=== PATIENT | female | born 1940 | race American Indian/Alaskan Native ===

== ENCOUNTER 2017-11-12 11:21 | Inpatient (IN) | payer MEDICARE ==
[2017-11-12 14:33] LABS: BASO # 0.1 K/uL (0.0-0.2); BASO % 1.2 % (0.0-2.0); EOS # 0.1 K/uL (0.0-0.7); EOS % 1.6 % (0.0-4.0); HEMOGLOBIN 13.2 g/dL (11.0-16.0); LYMPH % 21.8 % (20.0-40.0); MEAN CELL VOLUME 91.6 fL (81.0-99.0); MEAN CORPUSCULAR HEMOGLOBIN 30.8 pg (27.0-31.0); MEAN CORPUSCULAR HGB CONC 33.6 g/dL (33.0-37.0); MEAN PLATELET VOLUME 9.3 fL (7.2-11.7); MONO # 0.9 K/uL (0.0-0.8); MONO % 9.9 % (0.0-10.0); NEUT # 5.9 K/uL (1.8-7.0); NEUT % 65.5 % (50.0-75.0); RBC 4.28 Mil/uL (3.80-5.20)
[2017-11-12 14:49] LABS: PROTHROMBIN TIME 11.3 SECONDS (9.7-12.2)
[2017-11-12 14:53] LABS: ALB/GLOB RATIO 1.2 (1.0-2.1); ALBUMIN 4.5 g/dL (3.5-5.0); CALCIUM 9.2 mg/dl (8.6-10.4)
[2017-11-12 14:58] LABS: TROPONIN I 0.012 ng/mL (0.00-0.120)
--- NOTE | 2017-11-12 15:18 | RAD ---
PROCEDURE: CHEST RADIOGRAPH, 1 VIEW HISTORY: SOB COMPARISON: None available. FINDINGS: LUNGS: Clear. PLEURA: No pneumothorax or pleural fluid seen. CARDIOVASCULAR: No radiographic findings to suggest acute or significant cardiovascular disease. OSSEOUS STRUCTURES: No significant abnormalities. VISUALIZED UPPER ABDOMEN: Normal. OTHER FINDINGS: None. IMPRESSION: No active disease.
[2017-11-12 15:45] LABS: SQUAMOUS EPITHIAL < 1 /hpf (0-5); URINE BILIRUBIN NEGATIVE (NEGATIVE); URINE BLOOD NEGATIVE (NEGATIVE); URINE CLARITY Clear (Clear); URINE COLOR Colorless (YELLOW); URINE GLUCOSE (UA) NORMAL (Normal); URINE LEUKOCYTE ESTERASE NEG Leu/uL (Negative); URINE PROTEIN 1+ mg/dL (NEGATIVE); URINE UROBILINOGEN NORMAL mg/dL (0.2-1.0)
[2017-11-12] MEDS ORDERED: Enoxaparin 40 mg Syringe SC STA (15:57)
--- NOTE | 2017-11-12 15:59 | C.PDOC ---
History Of Present Illness 77 year old female presents to the ED for evaluation of bilateral leg swelling ( left > right) which began 1 day ago. Patient denies fever,chills, shortness of breath. Time Seen by Provider: 11/12/17 13:56 Chief Complaint (Nursing): Lower Extremity Problem/Injury History Per: Patient History/Exam Limitations: no limitations Onset/Duration Of Symptoms: Hrs Current Symptoms Are (Timing): Still Present Additional History Per: Patient Past Medical History Reviewed: Historical Data, Nursing Documentation, Vital Signs Vital Signs: Last Vital Signs Temp 97.9 F 11/12/17 17:28 Pulse 60 11/12/17 17:28 Resp 20 11/12/17 17:28 BP 148/70 11/12/17 17:28 Pulse Ox 100 11/12/17 19:32 - Medical History PMH: HTN, TIA Other PMH: DVT 50+ yrs ago during Surgical History: No Surg Hx Family History: States: No Known Family Hx - Social History Hx Alcohol Use: No Hx Substance Use: No - Immunization History Hx Tetanus Toxoid Vaccination: No Hx Influenza Vaccination: Yes Hx Pneumococcal Vaccination: No Review Of Systems Skin: Positive for: Other (b/l leg swelling ) Physical Exam - Physical Exam Appears: Non-toxic, No Acute Distress, Other (elderly black female ) Skin: Normal Color, Warm, Dry Head: Atraumatic, Normacephalic Eye(s): bilateral: Normal Inspection Oral Mucosa: Moist Neck: Supple Chest: Symmetrical, No Deformity, No Tenderness Cardiovascular: Rhythm Regular, No Murmur Respiratory: Normal Breath Sounds, No Rales, No Rhonchi, No Wheezing Extremity: Normal ROM, Capillary Refill (less than 2 seconds ), Other (mild leg edema bilaterally ) Neurological/Psych: Oriented x3, Normal Speech, Normal Cognition ED Course And Treatment - Laboratory Results Result Diagrams: 11/12/17 14:29 11/12/17 14:29 Lab Interpretation: Abnormal (d-dimer 543 H) ECG: Interpreted By Me ECG Rhythm: Sinus Rhythm ECG Interpretation: Normal Rate From EC O2 Sat by Pulse Oximetry: 100 (on RA ) Pulse Ox Interpretation: Normal - Radiology CXR: Interpreted by Me CXR Interpretation: Yes: No Acute Disease - Other Rad US b/l legs X-Ray: Read By Radiologist (+ L femoral DVT, + popliteal DVT (appear chronic)) Progress Note: Bloodwork, UA, EKG, CXR, and Venous Duplex Scan b/l LE ordered and reviewed. Lasix SC and Lovenox SC administered. Reevaluation Time: 16:15 Reassessment Condition: Improved - Physician Consult Information Outcome Of Conversation: 1415, 1600: d/w lorie Mcclain to admit. 1530 d/w Dr. Ricks- Cardio covering lorie King to consult. Disposition Doctor Will See Patient In The: Hospital Counseled Patient/Family Regarding: Studies Performed, Diagnosis - Disposition Disposition: HOSPITALIZED Disposition Time: 16:25 Condition: GOOD - Clinical Impression Clinical Impression: Deep venous thrombosis of lower extremity - Scribe Statement The provider has reviewed the documentation as recorded by the Scribe (Alix Das) Provider Attestation: All medical record entries made by the Scribe were at my direction and personally dictated by me. I have reviewed the chart and agree that the record accurately reflects my personal performance of the history, physical exam, medical decision making, and the department course for this patient. I have also personally directed, reviewed, and agree with the discharge instructions and disposition.
[2017-11-12] MEDS ORDERED: Enoxaparin 80 mg Syringe ONE ×2 (16:12→16:15)
[2017-11-12 17:29] VITALS: RESP 20
--- NOTE | 2017-11-12 20:17 | CP.PCM.HP ---
History of Present Illness - History of Present Illness History of Present Illness: Patient claims she startredt to have apins at the left lower extremity x 2 days prior and she also had pain asoociated. The swellinwas getting worse and the pain was getting [place] so she went to the ER and a venous doppler was done which showed a acute DVT with thrombus. Present on Admission - Present on Admission Any Indicators Present on Admission: Yes History of DVT/PE: Yes Review of Systems - EENT Eyes: Blurred Vision - Reproductive: Female Reproductive:Female: Post Menopausal - Menstruation Menstruation: Post Menopausal - Musculoskeletal Musculoskeletal: As Per HPI Past Patient History - Infectious Disease Hx of Infectious Diseases: None - Past Social History Smoking Status: Never Smoked Chewing Tobacco Use: No Alcohol: None Drugs: Denies Home Situation {Lives}: Alone - CARDIAC Hx Cardiac Disorders: Yes Hx Angina: Yes Hx Hypercholesterolemia: Yes Hx Hypertension: Yes Hx Peripheral Edema: Yes - NEUROLOGICAL Hx Neurological Disorder: Yes Hx Transient Ischemic Attacks (TIA): Yes - HEENT Hx Cataracts: Yes Hx Glaucoma: Yes 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 - RENAL Hx Chronic Kidney Disease: No - ENDOCRINE/METABOLIC Hx Diabetes Mellitus Type 2: Yes - HEMATOLOGICAL/ONCOLOGICAL Hx Blood Disorders: No - INTEGUMENTARY Hx Dermatological Problems: No - MUSCULOSKELETAL/RHEUMATOLOGICAL Hx Arthritis: No - GASTROINTESTINAL Hx Gastrointestinal Disorders: Yes Hx Ulcer: Yes - GENITOURINARY/GYNECOLOGICAL Hx Genitourinary Disorders: No - PSYCHIATRIC Hx Psychophysiologic Disorder: No Hx Substance Use: No - SURGICAL HISTORY Hx Surgeries: Yes Other/Comment: LEFT EYE SURGERY, DUE TO RETINAL DETACHMENT - ANESTHESIA Hx Anesthesia: Yes Hx Anesthesia Reactions: No Hx Malignant Hyperthermia: No Meds Allergies/Adverse Reactions: Allergies Allergy/AdvReac Type Severity Reaction Status Date / Time No Known Allergies Allergy Verified 11/12/17 14:15 Physical Exam - Constitutional Appears: Well, Non-toxic, No Acute Distress - Head Exam Head Exam: ATRAUMATIC, NORMAL INSPECTION, NORMOCEPHALIC - Eye Exam Eye Exam: EOMI, Normal appearance Pupil Exam: NORMAL ACCOMODATION - ENT Exam ENT Exam: Mucous Membranes Moist - Neck Exam Neck exam: Positive for: Full Rom, Normal Inspection - Respiratory Exam Respiratory Exam: Clear to Auscultation Bilateral, NORMAL BREATHING PATTERN - Cardiovascular Exam Cardiovascular Exam: REGULAR RHYTHM, +S1, +S2 - GI/Abdominal Exam GI & Abdominal Exam: Normal Bowel Sounds, Soft - Rectal Exam Rectal Exam: Deferred - Extremities Exam Extremities exam: Positive for: full ROM Additional comments: Left leg swollen and tender on palpation. - Back Exam Back exam: FULL ROM, NORMAL INSPECTION - Neurological Exam Neurological exam: Alert, Oriented x3 - Psychiatric Exam Psychiatric exam: Normal Affect, Normal Mood - Skin Skin Exam: Dry, Intact, Normal Color Results - Vital Signs Recent Vital Signs: Last Vital Signs Temp 97.9 F 11/12/17 17:28 Pulse 60 11/12/17 17:28 Resp 20 11/12/17 17:28 BP 148/70 11/12/17 17:28 Pulse Ox 100 11/12/17 19:32 - Labs Result Diagrams: 11/12/17 14:29 11/12/17 14:29 Labs: Laboratory Results - last 24 hr 11/12/17 11/12/17 11/12/17 14:29 14:29 14:29 WBC 9.0 RBC 4.28 Hgb 13.2 Hct 39.2 MCV 91.6 MCH 30.8 MCHC 33.6 RDW 13.0 Plt Count 179 MPV 9.3 Neut % (Auto) 65.5 Lymph % (Auto) 21.8 [place] % (Auto) 9.9 Eos % (Auto) 1.6 Baso % (Auto) 1.2 Neut # (Auto) 5.9 Lymph # (Auto) 2.0 [place] # (Auto) 0.9 H Eos # (Auto) 0.1 Baso # (Auto) 0.1 PT 11.3 INR 1.0 APTT 29 D-Dimer, Quantitative 543 H Sodium 143 Potassium 4.3 Chloride 105 Carbon Dioxide 22 Anion Gap 20 BUN 16 Creatinine 1.3 H Est GFR ( Amer) 48 Est GFR (Non-Af Amer) 40 Random Glucose 107 H Calcium 9.2 Total Bilirubin 0.5 AST 42 H ALT 20 Alkaline Phosphatase 52 Troponin I 0.0120 NT-Pro-B Natriuret Pep 282 Total Protein 8.3 Albumin 4.5 Globulin 3.9 Albumin/Globulin Ratio 1.2 Urine Color Urine Clarity Urine pH Ur Specific [place] Urine Protein Urine Glucose (UA) Urine Ketones Urine Blood Urine Nitrate Urine Bilirubin Urine Urobilinogen Ur Leukocyte Esterase Urine WBC (Auto) Ur Squamous Epith Cells 11/12/17 15:36 WBC RBC Hgb Hct MCV MCH MCHC RDW Plt Count MPV Neut % (Auto) Lymph % (Auto) [place] % (Auto) Eos % (Auto) Baso % (Auto) Neut # (Auto) Lymph # (Auto) [place] # (Auto) Eos # (Auto) Baso # (Auto) PT INR APTT D-Dimer, Quantitative Sodium Potassium Chloride Carbon Dioxide Anion Gap BUN Creatinine Est GFR ( Amer) Est GFR (Non-Af Amer) Random Glucose Calcium Total Bilirubin AST ALT Alkaline Phosphatase Troponin I NT-Pro-B Natriuret Pep Total Protein Albumin Globulin Albumin/Globulin Ratio Urine Color Colorless Urine Clarity Clear Urine pH 7.0 Ur Specific [place] 1.006 Urine Protein 1+ H Urine Glucose (UA) Normal Urine Ketones Negative Urine Blood Negative Urine Nitrate Negative Urine Bilirubin Negative Urine Urobilinogen Normal Ur Leukocyte Esterase Neg Urine WBC (Auto) < 1 Ur Squamous Epith Cells < 1 Assessment & Plan (1) Left leg DVT Status: Acute (2) CAD (coronary artery disease) Status: Chronic (3) Type 2 diabetes mellitus Status: Chronic - Assessment and Plan (Free Text) Plan: Plan: LOvenox 70 every 12 hours. Continue all home medications. Will get GI consult for HX of Peprtic ulcer and patient will be placed on ElIQUIS. Will get CT scan of lungs and abdomen and plvis to R/O malignancy as a cause of DVT.
--- NOTE | 2017-11-12 21:08 | CP.PCM.CON ---
History of Present Illness - History of Present Illness History of Present Illness: 77 yo female well know to me with h/o Peptic ulcer disease (approx 5 years ago) in the past now admitted with a left DVT, leg swelling and pain. Asked to see due to the need for anticoagulation and h/o PUD in the past. Pt is on Protonix and H/H is stable. No reported bleeding, melena or abdominal pain. CT Scan ordered by Dr Vigil to exclude Pulm Emolism and occult malignancy as reason for DVT. Patient seen in the office 2 weeks ago and is taking Miralax for chronic constipation. Review of Systems - Constitutional Constitutional: absent: Chills, Fatigue, Malaise, Night Sweats, Weight Loss - Cardiovascular Cardiovascular: Pedal Edema. absent: Chest Pain, Chest Pain with Activity, Dyspnea, Orthopnea - Respiratory Respiratory: absent: Cough, Dyspnea on Exertion - Gastrointestinal Gastrointestinal: As Per HPI, Constipation. absent: Abdominal Pain, Dysphagia, Heartburn, Melena, Vomiting Past Patient History - Infectious Disease Hx of Infectious Diseases: None - Past Medical History & Family History Past Medical History?: Yes - Past Social History Smoking Status: Never Smoked Chewing Tobacco Use: No Alcohol: None Drugs: Denies Home Situation {Lives}: Alone - CARDIAC Hx Cardiac Disorders: Yes Hx Angina: Yes Hx Hypercholesterolemia: Yes Hx Hypertension: Yes Hx Peripheral Edema: Yes - PULMONARY Hx Respiratory Disorders: No - NEUROLOGICAL Hx Neurological Disorder: Yes Hx Transient Ischemic Attacks (TIA): Yes - HEENT Hx Cataracts: Yes Hx Glaucoma: Yes 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 - RENAL Hx Chronic Kidney Disease: No - ENDOCRINE/METABOLIC Hx Diabetes Mellitus Type 2: Yes - HEMATOLOGICAL/ONCOLOGICAL Hx Blood Disorders: No Hx Cirrhosis: No Hx Hepatitis A: No Hx Hepatitis B: No Hx Hepatitis C: No Hx Human Immunodeficiency Virus (HIV): No - INTEGUMENTARY Hx Dermatological Problems: No - MUSCULOSKELETAL/RHEUMATOLOGICAL Hx Arthritis: No - GASTROINTESTINAL Hx Gastrointestinal Disorders: Yes Hx Bowel Surgery: No Hx Clostridium Difficile: No Hx Colitis: No Hx Colostomy: No Hx Constipation: No Hx Crohn's Disease: No Hx Diarrhea: No Hx Diverticulitis: No Hx Fatty Liver Disease: No Hx Gall Bladder Disease: No Hx Gastritis: No Hx Gastroesophageal Reflux: Yes Hx Hemorrhoids: No Hx Ileostomy: No Hx Irritable Bowel: No Hx Liver Failure: No Hx Nausea: No Hx Ulcer: Yes - GENITOURINARY/GYNECOLOGICAL Hx Genitourinary Disorders: No - PSYCHIATRIC Hx Psychophysiologic Disorder: No Hx Substance Use: No - SURGICAL HISTORY Hx Surgeries: Yes Other/Comment: LEFT EYE SURGERY, DUE TO RETINAL DETACHMENT - ANESTHESIA Hx Anesthesia: Yes Hx Anesthesia Reactions: No Hx Malignant Hyperthermia: No Meds Allergies/Adverse Reactions: Allergies Allergy/AdvReac Type Severity Reaction Status Date / Time No Known Allergies Allergy Verified 11/12/17 14:15 - Medications Medications: Current Medications Amlodipine Besylate (Norvasc) 5 mg PO DAILY [facility] Chlorthalidone (Hygroton) 25 mg PO DAILY [facility] Last Admin: 11/12/17 18:40 Dose: 25 mg Enoxaparin Sodium (Lovenox) 70 mg SC Q12H [facility] Insulin Aspart (Novolog Mix 70/30 (70/30 Units/Ml)) 15 units SC BIDAC [facility] Losartan Potassium (Cozaar) 100 mg PO DAILY [facility] Last Admin: 11/12/17 18:40 Dose: 100 mg Metoprolol Succinate (Toprol Xl) 100 mg PO DAILY [facility] Pantoprazole Sodium (Protonix Ec Tab) 40 mg PO DAILY [facility] Tramadol HCl (Ultram) 50 mg PO Q6H PRN PRN Reason: Pain, moderate (4-7) Physical Exam - Constitutional Appears: No Acute Distress - Head Exam Head Exam: ATRAUMATIC, NORMOCEPHALIC - Eye Exam Eye Exam: EOMI, PERRL - Respiratory Exam Respiratory Exam: Clear to Auscultation Bilateral, NORMAL BREATHING PATTERN - Cardiovascular Exam Cardiovascular Exam: REGULAR RHYTHM, +S1 - GI/Abdominal Exam GI & Abdominal Exam: Normal Bowel Sounds, Soft. absent: Distended, Guarding, Mass, Organomegaly, Rebound, Tenderness - Rectal Exam Rectal Exam: NORMAL INSPECTION - Extremities Exam Extremities exam: Positive for: pedal edema, tenderness - Neurological Exam Neurological exam: Alert, Oriented x3 - Psychiatric Exam Psychiatric exam: Normal Affect, Normal Mood - Skin Skin Exam: Dry, Warm Results - Vital Signs Recent Vital Signs: Last Vital Signs Temp 97.9 F 11/12/17 17:28 Pulse 60 11/12/17 17:28 Resp 20 11/12/17 17:28 BP 148/70 11/12/17 17:28 Pulse Ox 100 11/12/17 19:32 - Labs Result Diagrams: 11/12/17 14:29 11/12/17 14:29 Labs: Laboratory Results - last 24 hr 11/12/17 11/12/17 11/12/17 14:29 14:29 14:29 WBC 9.0 RBC 4.28 Hgb 13.2 Hct 39.2 MCV 91.6 MCH 30.8 MCHC 33.6 RDW 13.0 Plt Count 179 MPV 9.3 Neut % (Auto) 65.5 Lymph % (Auto) 21.8 [place] % (Auto) 9.9 Eos % (Auto) 1.6 Baso % (Auto) 1.2 Neut # (Auto) 5.9 Lymph # (Auto) 2.0 [place] # (Auto) 0.9 H Eos # (Auto) 0.1 Baso # (Auto) 0.1 PT 11.3 INR 1.0 APTT 29 D-Dimer, Quantitative 543 H Sodium 143 Potassium 4.3 Chloride 105 Carbon Dioxide 22 Anion Gap 20 BUN 16 Creatinine 1.3 H Est GFR ( Amer) 48 Est GFR (Non-Af Amer) 40 Random Glucose 107 H Calcium 9.2 Total Bilirubin 0.5 AST 42 H ALT 20 Alkaline Phosphatase 52 Troponin I 0.0120 NT-Pro-B Natriuret Pep 282 Total Protein 8.3 Albumin 4.5 Globulin 3.9 Albumin/Globulin Ratio 1.2 Urine Color Urine Clarity Urine pH Ur Specific [place] Urine Protein Urine Glucose (UA) Urine Ketones Urine Blood Urine Nitrate Urine Bilirubin Urine Urobilinogen Ur Leukocyte Esterase Urine WBC (Auto) Ur Squamous Epith Cells 11/12/17 15:36 WBC RBC Hgb Hct MCV MCH MCHC RDW Plt Count MPV Neut % (Auto) Lymph % (Auto) [place] % (Auto) Eos % (Auto) Baso % (Auto) Neut # (Auto) Lymph # (Auto) [place] # (Auto) Eos # (Auto) Baso # (Auto) PT INR APTT D-Dimer, Quantitative Sodium Potassium Chloride Carbon Dioxide Anion Gap BUN Creatinine Est GFR ( Amer) Est GFR (Non-Af Amer) Random Glucose Calcium Total Bilirubin AST ALT Alkaline Phosphatase Troponin I NT-Pro-B Natriuret Pep Total Protein Albumin Globulin Albumin/Globulin Ratio Urine Color Colorless Urine Clarity Clear Urine pH 7.0 Ur Specific [place] 1.006 Urine Protein 1+ H Urine Glucose (UA) Normal Urine Ketones Negative Urine Blood Negative Urine Nitrate Negative Urine Bilirubin Negative Urine Urobilinogen Normal Ur Leukocyte Esterase Neg Urine WBC (Auto) < 1 Ur Squamous Epith Cells < 1 Assessment & Plan (1) Constipation Assessment and Plan: Patient with chronic constipation but no bleeding previously on Plavix. Now on anticoagulant so will need to assure no straining to avoid bleeding. Colace bid and Miralax hs as needed. Observe. Status: Acute (2) H/O peptic ulcer Assessment and Plan: Patient with ulcer several years ago but no symptoms or bleeding noted. Has been on Protonix prophylaxis as well as for GERD as outpatient while on Plavix. Continue Protonix 40mg QD and observe for evidence of bleeding. Stable from ulcer point of view and H/H stable on admission. Status: Acute (3) Left leg DVT Assessment and Plan: Patient to be placed on blood thinner. Would defer concurrent use of Plavix if possible due to high bleeding risk. Continue Protonix 40mg daily as previous. Will follow with you. CT Scan ordered to exclude underlying malignancy as source for hypercoagulable state. Status: Acute
--- NOTE | 2017-11-12 23:21 | CT ---
EXAM: CT Chest Without Intravenous Contrast CLINICAL HISTORY: 77 years old, female; Pain; Abdominal pain; Chest pain; Type not specified; Additional info: Nbew onset of acute dvt TECHNIQUE: Axial computed tomography images of the chest without intravenous contrast. All CT scans at this facility use one or more dose reduction techniques, viz.: automated exposure control; ma/kV adjustment per patient size (including targeted exams where dose is matched to indication; i.e. head); or iterative reconstruction technique. Coronal and sagittal reformatted images were created and reviewed. COMPARISON: No relevant prior studies available. FINDINGS: Lungs and pleural spaces: Trachea and main bronchi are patent.There is no pneumothorax. There is atelectasis/scarring at the lung bases. There is a 1.3 x 1.9 cm nodular opacity in the right costophrenic sulcus with pleural thickening and tenting. There is an adjacent smaller 7 mm nodular opacity. There is mild associated bronchiectasis. There is minimal dependent atelectasis and scarring at the left base. There is no lobar or segmental consolidation. There are no effusions. Heart and vasculature: The heart is mildly enlarged. There are coronary artery calcifications.There is trace fluid in pericardial recesses.Aorta and main pulmonary artery are normal in caliber.There are vascular calcifications. Mediastinum: Esophagus is not optimally evaluated. There are no pathologically enlarged anterior or middle mediastinal nodes.Ra[place] are not optimally evaluated without contrast material. Thyroid: Thyroid is not optimally demonstrated. Bones/joints: There are degenerative changes in the osseus structures. Soft tissues: unremarkable Upper abdomen: Refer to following report for abdominal findings IMPRESSION: Nodular opacities in the right costophrenic sulcus, true nodules versus infiltrate or scarring; mild cardiomegaly and atherosclerotic disease Additional nonemergent findings as described above. EXAM: CT Abdomen and Pelvis Without Intravenous Contrast EXAM DATE/TIME: 11/12/2017 8:34 PM CLINICAL HISTORY: 77 years old, female; Pain; Abdominal pain; Chest pain; Type not specified; Additional info: Nbew onset of acute dvt TECHNIQUE: Axial computed tomography images of the abdomen and pelvis without intravenous contrast. All CT scans at this facility use one or more dose reduction techniques, viz.: automated exposure control; ma/kV adjustment per patient size (including targeted exams where dose is matched to indication; i.e. head); or iterative reconstruction technique. Coronal and sagittal reformatted images were created and reviewed. COMPARISON: There are no prior studies for comparison. FINDINGS: Lower thorax: Refer to prior report for chest findings ABDOMEN: Liver: unremarkable Gallbladder and bile ducts: Gallbladder is partially distended. There may be small gallstones. Common duct is prominent. Pancreas: Pancreas is mildly atrophic. Spleen: unremarkable Adrenals: There is adrenal thickening left greater than right. Kidneys and ureters: There is a 7 mm peripheral fatty left renal mass.Kidneys and ureters are otherwise unremarkable. Stomach and bowel: Stomach is partially distended. There air-fluid levels. Rotation is normal. There is fluid and air throughout the small bowel. There is no small bowel obstruction. Ileocecal region is unremarkable. Appendix and terminal ileum are unremarkable.There is moderately large amount of stool in the colon. Appendix: See stomach and bowel PELVIS: Bladder: unremarkable Reproductive: Uterus is absent. There are no adnexal masses. ABDOMEN and PELVIS: Intraperitoneal space: There is no free air or free fluid. Bones/joints: There are degenerative changes in the osseus structures. There is anterior listhesis L4 on L5. There is severe L4-L5 disc space narrowing with endplate sclerosis. Soft tissues: There is a small fat containing umbilical hernia. Vasculature: There are vascular calcifications. Lymph nodes: There is no pathologic adenopathy. IMPRESSION: Possible gallstones; left renal angiomyolipoma no acute solid visceral abnormality; possible constipation Additional nonemergent findings as described above.
[2017-11-13] MEDS ORDERED: Enoxaparin 80 mg Syringe SC SCH (06:00)
--- NOTE | 2017-11-13 07:22 | CP.PCM.PN ---
Subjective - Date & Time of Evaluation Date of Evaluation: 11/13/17 Time of Evaluation: 07:19 - Subjective Subjective: Patient feels well. No pain or SOB. No bleeding. Moved bowel x 1. CT Scan- renal angiolipoma and gallstones. No mass lesion. Stool in colon. Objective - Vital Signs/Intake and Output Vital Signs (last 24 hours): Temp Pulse Resp BP Pulse Ox 98.0 F 65 20 150/72 100 11/13/17 00:00 11/13/17 00:00 11/13/17 00:00 11/13/17 00:00 11/13/17 00:37 Intake and Output: 11/13/17 11/13/17 06:59 18:59 Intake Total 670 Balance 670 - Medications Medications: Current Medications Amlodipine Besylate (Norvasc) 5 mg PO DAILY [facility] Chlorthalidone (Hygroton) 25 mg PO DAILY [facility] Last Admin: 11/12/17 18:40 Dose: 25 mg Enoxaparin Sodium (Lovenox) 70 mg SC Q12H [facility] Last Admin: 11/13/17 05:31 Dose: 70 mg Insulin Aspart (Novolog Mix 70/30 (70/30 Units/Ml)) 15 units SC BIDAC [facility] Losartan Potassium (Cozaar) 100 mg PO DAILY [facility] Last Admin: 11/12/17 18:40 Dose: 100 mg Metoprolol Succinate (Toprol Xl) 100 mg PO DAILY [facility] Pantoprazole Sodium (Protonix Ec Tab) 40 mg PO DAILY [facility] Tramadol HCl (Ultram) 50 mg PO Q6H PRN PRN Reason: Pain, moderate (4-7) - Labs Labs: 11/12/17 14:29 11/12/17 14:29 PT 11.3 SECONDS (9.7-12.2) 11/12/17 14:29 INR 1.0 11/12/17 14:29 APTT 29 SECONDS (21-34) 11/12/17 14:29 - Constitutional Appears: No Acute Distress - Head Exam Head Exam: ATRAUMATIC, NORMOCEPHALIC - Respiratory Exam Respiratory Exam: NORMAL BREATHING PATTERN - Cardiovascular Exam Cardiovascular Exam: REGULAR RHYTHM, +S1 - GI/Abdominal Exam GI & Abdominal Exam: Soft, Normal Bowel Sounds. absent: Tenderness, Mass, Organomegaly - Extremities Exam Extremities Exam: Pedal Edema Assessment and Plan (1) Constipation Assessment & Plan: Colace and Miralax to be continued. Status: Acute (2) H/O peptic ulcer Assessment & Plan: Continue Protonix while on blood thinners or anti-platelet RX. Status: Acute (3) Left leg DVT Assessment & Plan: On Lovenox. CT shows no evidence of occult malignancy. Continue Rx as per Dr Vigil. Status: Acute
[2017-11-13 08:07] LABS: HEMOGLOBIN 12.1 g/dL (11.0-16.0); MEAN CELL VOLUME 91.4 fL (81.0-99.0); MEAN CORPUSCULAR HEMOGLOBIN 30.8 pg (27.0-31.0); MEAN CORPUSCULAR HGB CONC 33.7 g/dL (33.0-37.0); MEAN PLATELET VOLUME 9.7 fL (7.2-11.7); RBC 3.91 Mil/uL (3.80-5.20); RED CELL DISTRIBUTION WIDTH 13.1 % (11.5-14.5); WHITE BLOOD COUNT 7.4 K/uL (4.8-10.8)
[2017-11-13] MEDS ORDERED: POLYETHYLENE GLYCOL 3350 17 GM/Dose PACKET PO SCH (08:15)
[2017-11-13] MEDS: (Novolog Mix 70/30) Insulin Aspart/Insulin Aspar 100 units/ml SC SCH ×2 (08:16→16:39)
[2017-11-13] MEDS: Pantoprazole 40 mg EC Tab PO SCH (09:37)
[2017-11-13] MEDS: Metoprolol Succinate 100 mg XL Tab PO SCH (09:37)
--- NOTE | 2017-11-13 11:52 | CP.PCM.PN ---
Subjective - Date & Time of Evaluation Date of Evaluation: 11/13/17 Time of Evaluation: 11:45 - Subjective Subjective: Patient still with pain at the left leg, still swollen. Had been on lovenox subQ. Dr. Bass saw the patient and is of the opinion Osiel to start on Eliquis as long as she is oin Protoinix . Will just be aware to [facility] for bleeding. Will discontinue the Plavix and ASA. Objective - Vital Signs/Intake and Output Vital Signs (last 24 hours): Temp Pulse Resp BP Pulse Ox 98.4 F 63 20 138/68 100 11/13/17 08:14 11/13/17 08:14 11/13/17 08:14 11/13/17 08:14 11/13/17 08:14 Intake and Output: 11/13/17 11/13/17 06:59 18:59 Intake Total 670 Balance 670 - Medications Medications: Current Medications Amlodipine Besylate (Norvasc) 5 mg PO DAILY [facility] Last Admin: 11/13/17 09:37 Dose: 5 mg Apixaban (Eliquis) 5 mg PO DAILY [facility] Chlorthalidone (Hygroton) 25 mg PO DAILY [facility] Last Admin: 11/13/17 09:37 Dose: 25 mg Docusate Sodium (Colace) 100 mg PO BID [facility] Last Admin: 11/13/17 09:37 Dose: 100 mg Enoxaparin Sodium (Lovenox) 70 mg SC Q12H [facility] Last Admin: 11/13/17 05:31 Dose: 70 mg Insulin Aspart (Novolog Mix 70/30 (70/30 Units/Ml)) 15 units SC BIDAC [facility] Last Admin: 11/13/17 08:16 Dose: 15 units Losartan Potassium (Cozaar) 100 mg PO DAILY [facility] Last Admin: 11/13/17 09:37 Dose: 100 mg Metoprolol Succinate (Toprol Xl) 100 mg PO DAILY [facility] Last Admin: 11/13/17 09:37 Dose: 100 mg Pantoprazole Sodium (Protonix Ec Tab) 40 mg PO DAILY [facility] Last Admin: 11/13/17 09:37 Dose: 40 mg Pantoprazole Sodium (Protonix Ec Tab) 40 mg PO DAILY [facility] Polyethylene Glycol (Miralax) 17 gm PO PRN [facility] Tramadol HCl (Ultram) 50 mg PO Q6H PRN PRN Reason: Pain, moderate (4-7) - Labs Labs: 11/13/17 07:58 11/12/17 14:29 PT 11.3 SECONDS (9.7-12.2) 11/12/17 14:29 INR 1.0 11/12/17 14:29 APTT 29 SECONDS (21-34) 11/12/17 14:29 - Constitutional Appears: Non-toxic, No Acute Distress - Head Exam Head Exam: ATRAUMATIC, NORMAL INSPECTION, NORMOCEPHALIC - Eye Exam Eye Exam: EOMI, Normal appearance - ENT Exam ENT Exam: Mucous Membranes Moist - Neck Exam Neck Exam: Full ROM - Respiratory Exam Respiratory Exam: Clear to Ausculation Bilateral, NORMAL BREATHING PATTERN - Cardiovascular Exam Cardiovascular Exam: REGULAR RHYTHM, +S1, +S2 - GI/Abdominal Exam GI & Abdominal Exam: Soft, Normal Bowel Sounds - Rectal Exam Rectal Exam: Deferred - Extremities Exam Extremities Exam: Full ROM Additional comments: Left leg swollen and tender. - Back Exam Back Exam: NORMAL INSPECTION - Neurological Exam Neurological Exam: Alert, Awake, Normal Gait, Oriented x3 - Psychiatric Exam Psychiatric exam: Normal Affect, Normal Mood - Skin Skin Exam: Dry, Intact, Normal Color Assessment and Plan (1) Left leg DVT Status: Acute (2) CAD (coronary artery disease) Status: Chronic (3) Type 2 diabetes mellitus Status: Chronic (4) Lower venous segment thrombosis of both lower extremities Status: Acute (5) Hypertension Status: Chronic - Assessment and Plan (Free Text) Plan: Plan: Start on Eiquis po. Continue previous home treament foe HTN, NIDDM and CAD. Pulmonary consult for the pulmonary nodules.
[2017-11-13] MEDS ORDERED: Pantoprazole 40 mg EC Tab PO SCH (12:30)
--- NOTE | 2017-11-13 14:16 | CP.PCM.CON ---
History of Present Illness - History of Present Illness History of Present Illness: reason for consultation: lung nodule 77-year-old female with diabetes, hypertension, peptic ulcer disease, DVT, PAROXYSMAL ATRIAL FIBRILLATION, who was admitted yesterday with worsening swelling and pain of left leg. Venous Doppler done in the emergency room positive for DVT. Patient initially started on Lovenox. Patient denies shortness of breath, denies cough, denies fever or chills, denies night sweats, denies weight loss. 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 CAT scan of the chest showed right lower lobe lung nodule. No previous CAT scan available for comparison Review of Systems - Review of Systems All systems: reviewed and no additional remarkable complaints except (pain and swelling left leg) Past Patient History - Infectious Disease Hx of Infectious Diseases: None - Past Medical History & Family History Past Medical History?: Yes - Past Social History Smoking Status: Never Smoked Chewing Tobacco Use: No Alcohol: None Drugs: Denies Home Situation {Lives}: Alone - CARDIAC Hx Cardiac Disorders: Yes Hx Angina: Yes Hx Hypercholesterolemia: Yes Hx Hypertension: Yes Hx Peripheral Edema: Yes - PULMONARY Hx Respiratory Disorders: No - NEUROLOGICAL Hx Neurological Disorder: Yes Hx Transient Ischemic Attacks (TIA): Yes - HEENT Hx Cataracts: Yes Hx Glaucoma: Yes 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 - RENAL Hx Chronic Kidney Disease: No - ENDOCRINE/METABOLIC Hx Diabetes Mellitus Type 2: Yes - HEMATOLOGICAL/ONCOLOGICAL Hx Blood Disorders: No Hx Cirrhosis: No Hx Hepatitis A: No Hx Hepatitis B: No Hx Hepatitis C: No Hx Human Immunodeficiency Virus (HIV): No - INTEGUMENTARY Hx Dermatological Problems: No - MUSCULOSKELETAL/RHEUMATOLOGICAL Hx Arthritis: No - GASTROINTESTINAL Hx Gastrointestinal Disorders: Yes Hx Bowel Surgery: No Hx Clostridium Difficile: No Hx Colitis: No Hx Colostomy: No Hx Constipation: No Hx Crohn's Disease: No Hx Diarrhea: No Hx Diverticulitis: No Hx Fatty Liver Disease: No Hx Gall Bladder Disease: No Hx Gastritis: No Hx Gastroesophageal Reflux: Yes Hx Hemorrhoids: No Hx Ileostomy: No Hx Irritable Bowel: No Hx Liver Failure: No Hx Nausea: No Hx Ulcer: Yes - GENITOURINARY/GYNECOLOGICAL Hx Genitourinary Disorders: No - PSYCHIATRIC Hx Psychophysiologic Disorder: No Hx Substance Use: No - SURGICAL HISTORY Hx Surgeries: Yes Other/Comment: LEFT EYE SURGERY, DUE TO RETINAL DETACHMENT - ANESTHESIA Hx Anesthesia: Yes Hx Anesthesia Reactions: No Hx Malignant Hyperthermia: No Meds Allergies/Adverse Reactions: Allergies Allergy/AdvReac Type Severity Reaction Status Date / Time No Known Allergies Allergy Verified 11/12/17 14:15 - Medications Medications: Current Medications Amlodipine Besylate (Norvasc) 5 mg PO DAILY [facility] Last Admin: 11/13/17 09:37 Dose: 5 mg Apixaban (Eliquis) 5 mg PO DAILY [facility] Chlorthalidone (Hygroton) 25 mg PO DAILY [facility] Last Admin: 11/13/17 09:37 Dose: 25 mg Docusate Sodium (Colace) 100 mg PO BID [facility] Last Admin: 11/13/17 09:37 Dose: 100 mg Enoxaparin Sodium (Lovenox) 70 mg SC Q12H [facility] Last Admin: 11/13/17 05:31 Dose: 70 mg Insulin Aspart (Novolog Mix 70/30 (70/30 Units/Ml)) 15 units SC BIDAC [facility] Last Admin: 11/13/17 08:16 Dose: 15 units Losartan Potassium (Cozaar) 100 mg PO DAILY [facility] Last Admin: 11/13/17 09:37 Dose: 100 mg Metoprolol Succinate (Toprol Xl) 100 mg PO DAILY [facility] Last Admin: 11/13/17 09:37 Dose: 100 mg Pantoprazole Sodium (Protonix Ec Tab) 40 mg PO DAILY [facility] Last Admin: 11/13/17 09:37 Dose: 40 mg Pantoprazole Sodium (Protonix Ec Tab) 40 mg PO DAILY [facility] Last Admin: 11/13/17 12:42 Dose: Not Given Polyethylene Glycol (Miralax) 17 gm PO PRN [facility] Tramadol HCl (Ultram) 50 mg PO Q6H PRN PRN Reason: Pain, moderate (4-7) Physical Exam - Head Exam Head Exam: ATRAUMATIC, NORMOCEPHALIC - Eye Exam Eye Exam: Normal appearance - ENT Exam ENT Exam: Mucous Membranes Moist - Neck Exam Neck exam: Positive for: Normal Inspection - Respiratory Exam Respiratory Exam: Clear to Auscultation Bilateral - Cardiovascular Exam Cardiovascular Exam: REGULAR RHYTHM - GI/Abdominal Exam GI & Abdominal Exam: Normal Bowel Sounds, Soft - Rectal Exam Rectal Exam: NORMAL INSPECTION Results - Vital Signs Recent Vital Signs: Last Vital Signs Temp 98.4 F 11/13/17 08:14 Pulse 63 11/13/17 08:14 Resp 20 11/13/17 08:14 BP 138/68 11/13/17 08:14 Pulse Ox 100 11/13/17 08:14 - Labs Result Diagrams: 11/13/17 07:58 11/12/17 14:29 Labs: Laboratory Results - last 24 hr 11/12/17 11/12/17 11/12/17 14:29 14:29 14:29 WBC 9.0 RBC 4.28 Hgb 13.2 Hct 39.2 MCV 91.6 MCH 30.8 MCHC 33.6 RDW 13.0 Plt Count 179 MPV 9.3 Neut % (Auto) 65.5 Lymph % (Auto) 21.8 [place] % (Auto) 9.9 Eos % (Auto) 1.6 Baso % (Auto) 1.2 Neut # (Auto) 5.9 Lymph # (Auto) 2.0 [place] # (Auto) 0.9 H Eos # (Auto) 0.1 Baso # (Auto) 0.1 PT 11.3 INR 1.0 APTT 29 D-Dimer, Quantitative 543 H Sodium 143 Potassium 4.3 Chloride 105 Carbon Dioxide 22 Anion Gap 20 BUN 16 Creatinine 1.3 H Est GFR ( Amer) 48 Est GFR (Non-Af Amer) 40 POC Glucose (mg/dL) Random Glucose 107 H Calcium 9.2 Total Bilirubin 0.5 AST 42 H ALT 20 Alkaline Phosphatase 52 Troponin I 0.0120 NT-Pro-B Natriuret Pep 282 Total Protein 8.3 Albumin 4.5 Globulin 3.9 Albumin/Globulin Ratio 1.2 Urine Color Urine Clarity Urine pH Ur Specific Wallace Urine Protein Urine Glucose (UA) Urine Ketones Urine Blood Urine Nitrate Urine Bilirubin Urine Urobilinogen Ur Leukocyte Esterase Urine WBC (Auto) Ur Squamous Epith Cells Stool Occult Blood 11/12/17 11/12/17 11/13/17 15:36 21:14 07:19 WBC RBC Hgb Hct MCV MCH MCHC RDW Plt Count MPV Neut % (Auto) Lymph % (Auto) [place] % (Auto) Eos % (Auto) Baso % (Auto) Neut # (Auto) Lymph # (Auto) [place] # (Auto) Eos # (Auto) Baso # (Auto) PT INR APTT D-Dimer, Quantitative Sodium Potassium Chloride Carbon Dioxide Anion Gap BUN Creatinine Est GFR ( Amer) Est GFR (Non-Af Amer) POC Glucose (mg/dL) 162 H 148 H Random Glucose Calcium Total Bilirubin AST ALT Alkaline Phosphatase Troponin I NT-Pro-B Natriuret Pep Total Protein Albumin Globulin Albumin/Globulin Ratio Urine Color Colorless Urine Clarity Clear Urine pH 7.0 Ur Specific Wallace 1.006 Urine Protein 1+ H Urine Glucose (UA) Normal Urine Ketones Negative Urine Blood Negative Urine Nitrate Negative Urine Bilirubin Negative Urine Urobilinogen Normal Ur Leukocyte Esterase Neg Urine WBC (Auto) < 1 Ur Squamous Epith Cells < 1 Stool Occult Blood 11/13/17 11/13/17 11/13/17 07:58 08:30 11:16 WBC 7.4 RBC 3.91 Hgb 12.1 Hct 35.8 MCV 91.4 MCH 30.8 MCHC 33.7 RDW 13.1 Plt Count 178 MPV 9.7 Neut % (Auto) Lymph % (Auto) [place] % (Auto) Eos % (Auto) Baso % (Auto) Neut # (Auto) Lymph # (Auto) [place] # (Auto) Eos # (Auto) Baso # (Auto) PT INR APTT D-Dimer, Quantitative Sodium Potassium Chloride Carbon Dioxide Anion Gap BUN Creatinine Est GFR ( Amer) Est GFR (Non-Af Amer) POC Glucose (mg/dL) 106 Random Glucose Calcium Total Bilirubin AST ALT Alkaline Phosphatase Troponin I NT-Pro-B Natriuret Pep Total Protein Albumin Globulin Albumin/Globulin Ratio Urine Color Urine Clarity Urine pH Ur Specific [place] Urine Protein Urine Glucose (UA) Urine Ketones Urine Blood Urine Nitrate Urine Bilirubin Urine Urobilinogen Ur Leukocyte Esterase Urine WBC (Auto) Ur Squamous Epith Cells Stool Occult Blood Negative Assessment & Plan (1) Lung nodule Status: Acute Comment: CAT scan of the chest consistent with right lower lung nodule. Patient has no history of smoking. Follow-up CAT scan of the chest in 3 months Or PET scan as out patient (2) Deep venous thrombosis of lower extremity Status: Acute (3) H/O peptic ulcer Status: Acute
--- NOTE | 2017-11-13 23:26 | CARD ---
APPROVED REPORT EKG Measurement Heart [id number] <Conclusion> Sinus bradycardia Minimal voltage criteria for LVH, may be normal variant T wave abnormality, consider anterolateral ischemia Abnormal ECG
[2017-11-14] MEDS: (Novolog Mix 70/30) Insulin Aspart/Insulin Aspar 100 units/ml SC SCH ×2 (08:15→16:30)
[2017-11-14] MEDS: Pantoprazole 40 mg EC Tab PO SCH (09:02)
[2017-11-14] MEDS: Metoprolol Succinate 100 mg XL Tab PO SCH (09:03)
--- NOTE | 2017-11-14 10:22 | CP.PCM.PN ---
Subjective - Date & Time of Evaluation Date of Evaluation: 11/14/17 Time of Evaluation: 10:18 - Subjective Subjective: Patient reports BP elevated and dizziness this am with mild Nausea. No vomiting , diarrhea or pain. Objective - Vital Signs/Intake and Output Vital Signs (last 24 hours): Temp Pulse Resp BP Pulse Ox 97.4 F L 61 20 148/64 98 11/14/17 07:57 11/14/17 07:57 11/14/17 07:57 11/14/17 07:57 11/14/17 07:57 Intake and Output: 11/14/17 11/14/17 06:59 18:59 Intake Total 600 300 Balance 600 300 - Medications Medications: Current Medications Amlodipine Besylate (Norvasc) 5 mg PO DAILY [facility] Last Admin: 11/14/17 09:02 Dose: 5 mg Apixaban (Eliquis) 5 mg PO DAILY@1600 [facility] Last Admin: 11/13/17 16:27 Dose: 5 mg Chlorthalidone (Hygroton) 25 mg PO DAILY [facility] Last Admin: 11/14/17 09:03 Dose: 25 mg Docusate Sodium (Colace) 100 mg PO BID [facility] Last Admin: 11/14/17 09:02 Dose: 100 mg Enoxaparin Sodium (Lovenox) 70 mg SC Q12H [facility] Last Admin: 11/13/17 05:31 Dose: 70 mg Insulin Aspart (Novolog Mix 70/30 (70/30 Units/Ml)) 15 units SC BIDAC [facility] Last Admin: 11/14/17 08:15 Dose: 15 units Losartan Potassium (Cozaar) 100 mg PO DAILY [facility] Last Admin: 11/14/17 09:02 Dose: 100 mg Metoprolol Succinate (Toprol Xl) 100 mg PO DAILY [facility] Last Admin: 11/14/17 09:03 Dose: 100 mg Pantoprazole Sodium (Protonix Ec Tab) 40 mg PO DAILY [facility] Last Admin: 11/14/17 09:02 Dose: 40 mg Polyethylene Glycol (Miralax) 17 gm PO PRN [facility] Tramadol HCl (Ultram) 50 mg PO Q6H PRN PRN Reason: Pain, moderate (4-7) Last Admin: 11/13/17 19:06 Dose: 50 mg - Labs Labs: 11/13/17 07:58 11/12/17 14:29 PT 11.3 SECONDS (9.7-12.2) 11/12/17 14:29 INR 1.0 11/12/17 14:29 APTT 29 SECONDS (21-34) 11/12/17 14:29 - Constitutional Appears: No Acute Distress - Head Exam Head Exam: ATRAUMATIC, NORMOCEPHALIC - Eye Exam Eye Exam: EOMI, PERRL - Respiratory Exam Respiratory Exam: NORMAL BREATHING PATTERN - Cardiovascular Exam Cardiovascular Exam: REGULAR RHYTHM, +S1 - GI/Abdominal Exam GI & Abdominal Exam: Soft, Normal Bowel Sounds. absent: Distended, Guarding, Tenderness, Mass, Rebound - Extremities Exam Extremities Exam: Pedal Edema Assessment and Plan (1) Constipation Assessment & Plan: Continue Colace and Miralax here and as outpatient Follow up with me in office as needed. No further GI workup needed at this time. Status: Chronic (2) H/O peptic ulcer Assessment & Plan: Monitor for bleeding and continue Pantoprazole daily. OK for anticoagulant. Status: Resolved (3) Left leg DVT Assessment & Plan: OK for anticoagulant or antiplatelet drugs as needed. Monitor for bleeding. Status: Acute
--- NOTE | 2017-11-14 11:03 | CP.PCM.DIS ---
Provider - Provider Date of Admission: 11/12/17 15:59 Attending physician: Arabella Vigil MD Time Spent in preparation of Discharge (in minutes): 60 Diagnosis - Discharge Diagnosis (1) Left leg DVT Status: Acute (2) CAD (coronary artery disease) Status: Chronic (3) Type 2 diabetes mellitus Status: Chronic (4) Lower venous segment thrombosis of both lower extremities Status: Acute (5) Hypertension Status: Chronic Hospital Course - Lab Results Lab Results: Most Recent Lab Values WBC 7.4 K/uL (4.8-10.8) 11/13/17 07:58 RBC 3.91 Mil/uL (3.80-5.20) 11/13/17 07:58 Hgb 12.1 g/dL (11.0-16.0) 11/13/17 07:58 Hct 35.8 % (34.0-47.0) 11/13/17 07:58 MCV 91.4 fL (81.0-99.0) 11/13/17 07:58 MCH 30.8 pg (27.0-31.0) 11/13/17 07:58 MCHC 33.7 g/dL (33.0-37.0) 11/13/17 07:58 RDW 13.1 % (11.5-14.5) 11/13/17 07:58 Plt Count 178 K/uL (130-400) 11/13/17 07:58 MPV 9.7 fL (7.2-11.7) 11/13/17 07:58 Neut % (Auto) 65.5 % (50.0-75.0) 11/12/17 14:29 Lymph % (Auto) 21.8 % (20.0-40.0) 11/12/17 14:29 [place] % (Auto) 9.9 % (0.0-10.0) 11/12/17 14:29 Eos % (Auto) 1.6 % (0.0-4.0) 11/12/17 14:29 Baso % (Auto) 1.2 % (0.0-2.0) 11/12/17 14:29 Neut # (Auto) 5.9 K/uL (1.8-7.0) 11/12/17 14:29 Lymph # (Auto) 2.0 K/uL (1.0-4.3) 11/12/17 14:29 [place] # (Auto) 0.9 K/uL (0.0-0.8) H 11/12/17 14:29 Eos # (Auto) 0.1 K/uL (0.0-0.7) 11/12/17 14:29 Baso # (Auto) 0.1 K/uL (0.0-0.2) 11/12/17 14:29 PT 11.3 SECONDS (9.7-12.2) 11/12/17 14:29 INR 1.0 11/12/17 14:29 APTT 29 SECONDS (21-34) 11/12/17 14:29 D-Dimer, Quantitative 543 ng/mlDDU (0-243) H 11/12/17 14:29 Sodium 143 mmol/L (132-148) 11/12/17 14:29 Potassium 4.3 mmol/L (3.6-5.2) 11/12/17 14:29 Chloride 105 mmol/L (98-107) 11/12/17 14:29 Carbon Dioxide 22 mmol/L (22-30) 11/12/17 14:29 Anion Gap 20 (10-20) 11/12/17 14:29 BUN 16 mg/dL (7-17) 11/12/17 14:29 Creatinine 1.3 mg/dL (0.7-1.2) H 11/12/17 14:29 Est GFR ( Amer) 48 11/12/17 14:29 Est GFR (Non-Af Amer) 40 11/12/17 14:29 POC Glucose (mg/dL) 134 mg/dL (65-110) H 11/14/17 07:07 Random Glucose 107 mg/dL (65-105) H 11/12/17 14:29 Calcium 9.2 mg/dl (8.6-10.4) 11/12/17 14:29 Total Bilirubin 0.5 mg/dL (0.2-1.3) 11/12/17 14:29 AST 42 U/L (14-36) H 11/12/17 14:29 ALT 20 U/L (9-52) 11/12/17 14:29 Alkaline Phosphatase 52 U/L (38-126) 11/12/17 14:29 Troponin I 0.0120 ng/mL (0.00-0.120) 11/12/17 14:29 NT-Pro-B Natriuret Pep 282 pg/mL (0-900) 11/12/17 14:29 Total Protein 8.3 g/dL (6.3-8.3) 11/12/17 14: Albumin 4.5 g/dL (3.5-5.0) 11/12/17 14: Globulin 3.9 gm/dL (2.2-3.9) 11/12/17 14:29 Albumin/Globulin Ratio 1.2 (1.0-2.1) 11/12/17 14:29 Urine Color Colorless (YELLOW) 11/12/17 15:36 Urine Clarity Clear (Clear) 11/12/17 15:36 Urine pH 7.0 (5.0-8.0) 11/12/17 15:36 Ur Specific [place] 1.006 (1.003-1.030) 11/12/17 15:36 Urine Protein 1+ mg/dL (NEGATIVE) H 11/12/17 15:36 Urine Glucose (UA) Normal mg/dL (Normal) 11/12/17 15:36 Urine Ketones Negative mg/dL (NEGATIVE) 11/12/17 15:36 Urine Blood Negative (NEGATIVE) 11/12/17 15:36 Urine Nitrate Negative (NEGATIVE) 11/12/17 15:36 Urine Bilirubin Negative (NEGATIVE) 11/12/17 15:36 Urine Urobilinogen Normal mg/dL (0.2-1.0) 11/12/17 15:36 Ur Leukocyte Esterase Neg Karlie/uL (Negative) 11/12/17 15:36 Urine WBC (Auto) < 1 /hpf (0-5) 11/12/17 15:36 Ur Squamous Epith Cells < 1 /hpf (0-5) 11/12/17 15:36 Stool Occult Blood Negative (NEGATIVE) 11/13/17 08:30 - Hospital Course Hospital Course: Admitted this 77 years old female who started to have pain and swelling of of both lower extremitries. The pain was getting worst so she went to the ER 3where a venous doppler was done which showed phlebitis of the lower exremities . Patient was on Plavix and ASA as an outpatient but was apparently taking them every other day because of the expense which is very exuberant Patient was placed on Lovenox 75 q 12 hours then shifted to Eliquis daily PO. DR. Ricks was consulted and saw patient initially and Dr. Bass was consulted for she was diagnosed to have peptic ukcers a few years back. Cat scan of the abdomen and pelvis and lungs were obtained to search for cause of hypercoagulabiliy and the only positive finding was a nodule at the right lobe. Dr. Ridley was consulted and suggested that a repeat cat scan of the lungs is to done in 3 months and this was told to the patient and understood that. Patient's pain and swelling of lower extremities were better and patient will be discharged today to continue Eliquis and to be seen by me in 2 weeks and to follow up with her hand outside cutter Dr. Calloway and Dr. Ridley as an outpatient. Discharge Exam - Head Exam Head Exam: ATRAUMATIC, NORMOCEPHALIC - Eye Exam Eye Exam: Normal appearance, PERRL - ENT Exam ENT Exam: Normal External Ear Exam - Neck Exam Neck exam: Full Rom - Respiratory Exam Respiratory Exam: Clear to PA & Lateral, UNREMARKABLE - Cardiovascular Exam Cardiovascular Exam: REGULAR RHYTHM, +S1, +S2 - GI/Abdominal Exam GI & Abdominal Exam: Normal Bowel Sounds, Soft - Rectal Exam Rectal Exam: Deferred - Back Exam Back exam: FULL ROM - Neurological Exam Neurological exam: Alert, Normal Gait, Oriented x3 - Psychiatric Exam Psychiatric exam: Normal Affect, Normal Mood - Skin Skin Exam: Dry, Intact, Normal Color Discharge Plan - Follow Up Plan Condition: GOOD Disposition: HOME/ ROUTINE Patient education suggested?: No Clinical Quality Measures - CQM - Stroke Antithrombotic Prescribed: Yes Anticoagulation Prescribed for Atrial Flutter, Atrial Fibrillation and History of:: Yes - CQM - VTE Did patient receive overlap therapy during hosptialization?: No
--- NOTE | 2017-11-14 11:22 | VASCLAB ---
PROCEDURE: Lower Extremity Venous Duplex Exam. HISTORY: L leg pain, h/o DVT L leg PRIORS: None. TECHNIQUE: Bilateral common femoral, femoral, popliteal and posterior tibial, peroneal and great saphenous veins were evaluated. Flow was assessed with color Doppler, compressibility, assessment of phasic flow and augmentation response. Report prepared by EZRA Carrero, RVT FINDINGS: RIGHT: 1. Common Femoral Vein: 1.1. Compressibility - Fully compressible: Thrombus - None : Flow - Phasic: Augmentation -Normal: Reflux - None. 2. Femoral Vein: 2.1. Compressibility - Fully compressible: Thrombus - None : Flow - Phasic: Augmentation -Normal: Reflux - Severe. 3. Popliteal Vein: 3.1. Compressibility - Partial: Thrombus - Chronic : Flow - Reduced : Augmentation -Reduced: Reflux - Severe. 4. Posterior Tibial Vein: 4.1. Compressibility - Fully compressible: Thrombus - None: Flow - Phasic: Augmentation -Normal: Reflux - None. 5. Peroneal Vein: 5.1. Compressibility - Fully compressible: Thrombus - None: Flow - Phasic: Augmentation -Normal: Reflux - Severe. 6. Great Saphenous Vein: 6.1. Compressibility - Fully compressible: Thrombus - None: Flow - Phasic: Augmentation - Normal: Reflux - None. LEFT: 1. Common Femoral Vein: 1.1. Compressibility - Partial: Thrombus - Chronic: Flow - Reduced : Augmentation -Reduced: Reflux - None. 2. Femoral Vein: 2.1. Compressibility - Fully compressible: Thrombus - None: Flow - Phasic: Augmentation -Normal: Reflux - Severe. 3. Popliteal Vein: 3.1. Compressibility - Fully compressible: Thrombus - None : Flow - Phasic: Augmentation -Normal: Reflux - Severe. 4. Posterior Tibial Vein: 4.1. Compressibility - Fully compressible: Thrombus - None: Flow - Phasic: Augmentation -Normal: Reflux - None. 5. Peroneal Vein: 5.1. Compressibility - Fully compressible: Thrombus - None: Flow - Phasic: Augmentation -Normal: Reflux - Severe. 6. Great Saphenous Vein: 6.1. Compressibility - Fully compressible: Thrombus - None: Flow - Phasic: Augmentation - Normal: Reflux - None. OTHER FINDINGS: Dr. Talamantes notified about the findings. 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 Valvular incompetence of the right femoral, popliteal and peroneal veins. Left: Acute thrombosis of the left common femoral vein with mild reduction of the venous return. Valvular incompetence of the left femoral, popliteal and peroneal veins.
[2017-11-14 16:08] VITALS: BP 149/67; PULSE 56; TEMP 97.6; O2SAT 100
--- NOTE | 2017-11-14 17:26 | CP.PCM.PN ---
Subjective - Date & Time of Evaluation Date of Evaluation: 11/14/17 Time of Evaluation: 17:23 - Subjective Subjective: Pt feels OK, last bps have been mildly elevated. Objective - Vital Signs/Intake and Output Vital Signs (last 24 hours): Temp Pulse Resp BP Pulse Ox 97.6 F 56 L 20 149/67 100 11/14/17 15:06 11/14/17 15:06 11/14/17 15:06 11/14/17 15:06 11/14/17 15:06 Intake and Output: 11/14/17 11/14/17 06:59 18:59 Intake Total 600 920 Balance 600 920 - Medications Medications: Current Medications Amlodipine Besylate (Norvasc) 5 mg PO DAILY [facility] Last Admin: 11/14/17 09:02 Dose: 5 mg Apixaban (Eliquis) 5 mg PO DAILY@1600 [facility] Last Admin: 11/14/17 16:10 Dose: Not Given Chlorthalidone (Hygroton) 25 mg PO DAILY [facility] Last Admin: 11/14/17 09:03 Dose: 25 mg Docusate Sodium (Colace) 100 mg PO BID [facility] Last Admin: 11/14/17 09:02 Dose: 100 mg Enoxaparin Sodium (Lovenox) 70 mg SC Q12H [facility] Last Admin: 11/13/17 05:31 Dose: 70 mg Insulin Aspart (Novolog Mix 70/30 (70/30 Units/Ml)) 15 units SC BIDAC [facility] Last Admin: 11/14/17 08:15 Dose: 15 units Losartan Potassium (Cozaar) 100 mg PO DAILY [facility] Last Admin: 11/14/17 09:02 Dose: 100 mg Metoprolol Succinate (Toprol Xl) 100 mg PO DAILY [facility] Last Admin: 11/14/17 09:03 Dose: 100 mg Pantoprazole Sodium (Protonix Ec Tab) 40 mg PO DAILY [facility] Last Admin: 11/14/17 09:02 Dose: 40 mg Polyethylene Glycol (Miralax) 17 gm PO PRN CESAR Tramadol HCl (Ultram) 50 mg PO Q6H PRN PRN Reason: Pain, moderate (4-7) Last Admin: 11/13/17 19:06 Dose: 50 mg - Labs Labs: 11/13/17 07:58 11/12/17 14:29 PT 11.3 SECONDS (9.7-12.2) 11/12/17 14:29 INR 1.0 11/12/17 14:29 APTT 29 SECONDS (21-34) 11/12/17 14:29 - Constitutional Appears: Well - Head Exam Head Exam: ATRAUMATIC - Eye Exam Eye Exam: EOMI - ENT Exam ENT Exam: Mucous Membranes Moist - Respiratory Exam Respiratory Exam: NORMAL BREATHING PATTERN - Cardiovascular Exam Cardiovascular Exam: REGULAR RHYTHM - GI/Abdominal Exam GI & Abdominal Exam: Normal Bowel Sounds - Rectal Exam Rectal Exam: NORMAL INSPECTION - Exam Exam: NORMAL INSPECTION External exam: Swelling - Extremities Exam Extremities Exam: Full ROM - Back Exam Back Exam: NORMAL INSPECTION - Neurological Exam Neurological Exam: Alert, Awake, Normal Gait, Oriented x3 - Psychiatric Exam Psychiatric exam: Normal Affect - Skin Skin Exam: Dry Assessment and Plan - Assessment and Plan (Free Text) Assessment: 1. DVT, no PE. Pt to go home with eliquis. 2. Norvasc changed to diuretic in order to reduced leg edema. BP is mildly high. Will follow, and if still high, omar further adjust meds. 3. Pt saw Dr Guido and Dr Bass while in hospital.
== END 2017-11-14 17:40 | disposition home or self-care (01) | DRG 300 ==
LOC: C.ER 11:21 → C.9E 15:59 → C.3T 17:21
PROVIDERS: ADMIT Legal Medicine; ATTEND Legal Medicine
DX: I82.412 Acute embolism and thrombosis of left femoral vein (principal); I48.92 Unspecified atrial flutter; I82.431 Acute embolism and thrombosis of right popliteal vein; I48.0 Paroxysmal atrial fibrillation; E11.9 Type 2 diabetes mellitus without complications; E78.00 Pure hypercholesterolemia, unspecified; I10 Essential (primary) hypertension; I25.10 Atherosclerotic heart disease of native coronary artery without angina pectoris; K21.9 Gastro-esophageal reflux disease without esophagitis; K27.9 Peptic ulcer, site unspecified, unspecified as acute or chronic, without hemorrhage or perforation; Z86.73 Personal history of transient ischemic attack (TIA), and cerebral infarction without residual deficits; R91.1 Solitary pulmonary nodule; K59.09 Other constipation; Z79.01 Long term (current) use of anticoagulants

== ENCOUNTER 2018-10-28 09:01 | Inpatient (IN) | payer MEDICARE ==
[2018-10-28 09:08] VITALS: BMI 25.7
[2018-10-28 10:37] LABS: BASO # 0.1 K/uL (0.0-0.2); BASO % 0.9 % (0.0-2.0); EOS # 0.1 K/uL (0.0-0.7); LYMPH # 1.6 K/uL (1.0-4.3); LYMPH % 16.2 % (20.0-40.0); MEAN CELL VOLUME 92.5 fL (81.0-99.0); MEAN CORPUSCULAR HEMOGLOBIN 30.6 pg (27.0-31.0); MEAN CORPUSCULAR HGB CONC 33.1 g/dL (33.0-37.0); MEAN PLATELET VOLUME 10.1 fL (7.2-11.7); MONO # 0.7 K/uL (0.0-0.8); MONO % 7.6 % (0.0-10.0); NEUT # 7.2 K/uL (1.8-7.0); NEUT % 74.3 % (50.0-75.0); RBC 4.26 Mil/uL (3.80-5.20); RED CELL DISTRIBUTION WIDTH 12.9 % (11.5-14.5); WHITE BLOOD COUNT 9.7 K/uL (4.8-10.8)
[2018-10-28 10:43] LABS: INR 1.3; PROTHROMBIN TIME 14.3 SECONDS (9.7-12.2)
[2018-10-28 10:47] LABS: ALB/GLOB RATIO 1.4 (1.0-2.1); ALBUMIN 4.5 g/dL (3.5-5.0); ALT/SGPT 22 U/L (9-52); AST/SGOT 28 U/L (14-36); BLOOD UREA NITROGEN 22 mg/dL (7-17); CALCIUM 9.5 mg/dl (8.6-10.4); GFR NON-AFRICAN AMERICAN 36
--- NOTE | 2018-10-28 10:52 | CT ---
Date of service: 10/28/2018 PROCEDURE: CT HEAD WITHOUT CONTRAST. HISTORY: syncope COMPARISON: None available. TECHNIQUE: Axial computed tomography images were obtained through the head/brain without intravenous contrast. Radiation dose: Total exam DLP = 1052.16 mGy-cm. This CT exam was performed using one or more of the following dose reduction techniques: Automated exposure control, adjustment of the mA and/or kV according to patient size, and/or use of iterative reconstruction technique. FINDINGS: HEMORRHAGE: No acute parenchymal, subarachnoid or extra-axial hemorrhage. BRAIN: Suspect minor chronic periventricular white matter ischemic changes. There also appear to be a few scattered chronic appearing bilateral basal nuclei lacunar type infarcts. Note that the possibility of a small hyperacute infarct cannot be excluded on this exam. [id number] generalized volume loss VENTRICLES: No obstructive hydrocephalus. CALVARIUM: Calvarium intact however note is made of a elliptical shaped bony excrescence arising from the superior right frontoparietal calvarium that most likely represents an exostosis. In addition, there is mild the hyperostosis frontalis interna PARANASAL SINUSES: Unremarkable as visualized. No significant inflammatory changes. MASTOID AIR CELLS: Unremarkable as visualized. No inflammatory changes. OTHER FINDINGS: Changes of bilateral cataract surgery... IMPRESSION: No acute intracranial hemorrhage. Minor chronic periventricular white matter ischemic changes with scattered chronic bilateral basal nuclei lacunar type infarcts.
--- NOTE | 2018-10-28 11:06 | C.PDOC ---
History Of Present Illness 78 y/o female,w/PMhx of HTN, presents to the ER for evaluation of syncopal episode which occurred at home earlier today. Patient states that she fell and "passed out" while she was going from her bed to her kitchen today. Patient re ports that she has some intermittent dizziness over the past few days. She notes that she has hx of DVT and she is currently on Eliquis. Denies having head injury, CP,SOB, abdominal pain, nausea, and vomiting. Of note, patient is legally blind. Time Seen by Provider: 10/28/18 09:31 Chief Complaint (Nursing): Dizziness/Lightheaded History Per: Patient History/Exam Limitations: no limitations Onset/Duration Of Symptoms: Hrs Current Symptoms Are (Timing): Still Present Severity: Moderate Past Medical History Reviewed: Historical Data, Nursing Documentation, Vital Signs Vital Signs: Last Vital Signs Temp 97.7 F 10/28/18 09:10 Pulse 64 10/28/18 09:10 Resp 17 10/28/18 09:10 BP 176/74 H 10/28/18 09:10 Pulse Ox 100 10/28/18 09:10 - Medical History PMH: HTN, Hypercholesterolemia, Peripheral Edema, TIA Denies: Arthritis, Crohn's Disease, Diverticulitis, Gastritis, Gall Bladder Disease, HIV, Chronic Kidney Disease Family History: States: Unknown Family Hx - Social History Hx Alcohol Use: Yes Hx Substance Use: No (Rarely) - Immunization History Hx Tetanus Toxoid Vaccination: No Hx Influenza Vaccination: Yes (2018) Hx Pneumococcal Vaccination: No Review Of Systems Except As Marked, All Systems Reviewed And Found Negative. Constitutional: Negative for: Fever, Chills Cardiovascular: Negative for: Chest Pain Respiratory: Negative for: Shortness of Breath Gastrointestinal: Negative for: Nausea, Vomiting Neurological: Negative for: Dizziness Physical Exam - Physical Exam Appears: Non-toxic, No Acute Distress Skin: Normal Color, Warm, Dry Head: Atraumatic, Normacephalic Eye(s): bilateral: Other (irregular shaped pupils) Nose: Normal Oral Mucosa: Moist Neck: Supple Chest: Symmetrical Cardiovascular: Rhythm Regular Respiratory: Normal Breath Sounds, No Rales, No Rhonchi, No Wheezing Gastrointestinal/Abdominal: Normal Exam, Soft, No Tenderness, No Guarding, No Rebound Neurological/Psych: Oriented x3, Normal Speech, 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), Normal Sensation ED Course And Treatment - Laboratory Results Result Diagrams: 10/28/18 10:30 10/28/18 10:30 Lab Results: PT 14.3 SECONDS (9.7-12.2) H 10/28/18 10:30 INR 1.3 10/28/18 10:30 APTT 44 SECONDS (21-34) H 10/28/18 10:30 Troponin I < 0.0120 ng/mL (0.00-0.120) 10/28/18 10:30 Total Bilirubin 0.7 mg/dL (0.2-1.3) 10/28/18 10:30 AST 28 U/L (14-36) 10/28/18 10:30 ALT 22 U/L (9-52) 10/28/18 10:30 Alkaline Phosphatase 60 U/L (38-126) 10/28/18 10:30 Total Protein 7.7 g/dL (6.3-8.3) 10/28/18 10:30 Albumin 4.5 g/dL (3.5-5.0) 10/28/18 10:30 Globulin 3.1 gm/dL (2.2-3.9) 10/28/18 10:30 Albumin/Globulin Ratio 1.4 (1.0-2.1) 10/28/18 10:30 ECG: Interpreted By Me, Viewed By Me ECG Rhythm: Sinus Rhythm Interpretation Of ECG: NSR with normal intervals, normal axises, and no ST elevations/ depressions Rate From EC O2 Sat by Pulse Oximetry: 100 (RA) Pulse Ox Interpretation: Normal - Other Rad CXR X-Ray: Viewed By Me, Read By Radiologist Interpretation: ADDENDUM: There is an error in the cardiovascular section of this report which should read as follows: Minor aortic atherosclerotic calcification is present.. [ Addendum Report Added by Mark Karimi MD at 10/28/2018 12:58:44 ]. Date of service: 10/28/2018. HISTORY: Chest pain. COMPARISON: Comparison chest 11/20/2017. FINDINGS: LUNGS: Low lung volumes, crowded bronchovascular markings and minor bibasilar atelectasis. PLEURA: No significant pleural effusion identified, no pneumothorax apparent. CARDIOVASCULAR: No aortic atherosclerotic calcification present. Normal cardiac size. No pulmonary vascular congestion. OSSEOUS STRUCTURES: No significant abnormalities. VISUALIZED UPPER ABDOMEN: Normal. OTHER FINDINGS: None. IMPRESSION: Low lung volumes, crowded bronchovascular markings and minor bibasilar atelectasis [id number] and Coccyx X-Ray: Viewed By Me, Read By Radiologist Interpretation: Date of service: The x-rays on. 10/28/2018. PROCEDURE: Radiographs of the Sacrum and Coccyx. HISTORY: Fall-pain. COMPARISON: None available. TECHNIQUE: Frontal and lateral views of the sacrum and coccyx. FINDINGS: The examination is limited by overlying bowel related type artifact. BONES: There is a subtle diagonally oriented lucency traversing the distal sacrum/coccygeal junction on lateral projection with minimal cortical step. Possibility of a nondisplaced or minimally displaced fracture not excluded. Follow-up CT scan is recommended. Note made of moderate to fairly significant degenerative spondylosis lower lumbosacral spine. There is a cardiothoracic the approximately grade 1 subluxation of L4 over L5. SACROILIAC JOINTS: U SI joints intact. Minimal sclerosis. OTHER FINDINGS: None. IMPRESSION: There is a subtle diagonally oriented lucency traversing the distal sacrum/coccygeal junction on lateral projection with minimal cortical step. Possibility of a nondisplaced or minimally displaced fracture not excluded. Follow-up CT scan is recommended. Note made of moderate to fairly significant degenerative spondylosis lower lumbosacral spine. There is a and a approximately grade 1 subluxation of L4 over L5. Note that this report was placed in [facility] review folder for follow up. - CT Scan/US CT-Head Other Rad Studies (CT/US): Read By Radiologist, Radiology Report Reviewed CT/US Interpretation: Date of service: 10/28/2018. PROCEDURE: CT HEAD WITHOUT CONTRAST. HISTORY: syncope. COMPARISON: None available. TECHNIQUE: Axial computed tomography images were obtained through the head/brain without intravenous contrast. Radiation dose: Total exam DLP = 1052.16 mGy-cm. This CT exam was performed using one or more of the following dose reduction techniques: Automated exposure control, adjustment of the mA and/or kV according to patient size, and/or use of iterative reconstruction technique. FINDINGS: HEMORRHAGE: No acute parenchymal, subarachnoid or extra-axial hemorrhage. BRAIN: Suspect minor chronic periventricular white matter ischemic changes. There also appear to be a few scattered chronic appearing bilateral basal nuclei lacunar type infarcts. Note that the possibility of a small hyperacute infarct cannot be excluded on this exam. Oipg-do-fimfeida generalized volume loss. VENTRICLES: No obstructive hydrocephalus. CALVARIUM: Calvarium intact however note is made of a elliptical shaped bony excrescence arising from the superior right frontoparietal calvarium that most likely represents an exostosis. In addition, there is mild the hyperostosis frontalis interna. PARANASAL SINUSES: Unremarkable as visualized. No significant inflammatory changes. MASTOID AIR CELLS: Unremarkable as visualized. No inflammatory changes. OTHER FINDINGS: Changes of bilateral cataract surgery... IMPRESSION: No acute intracranial hemorrhage. Minor chronic periventricular white matter ischemic changes with scattered chronic bilateral basal nuclei lacunar type infarcts. Medical Decision Making Medical Decision Making: Plan: --Labs --UA --CXR --CT-Head --I-Wvh-Bgpdjc and Coccyx --IV Fluids Updates : 15:40 Case discussed with . Patient will be admitted under the service of . Disposition Counseled Patient/Family Regarding: Studies Performed, Diagnosis - Disposition Disposition: HOSPITALIZED Disposition Time: 15:41 Condition: STABLE - Clinical Impression Clinical Impression: Syncope, Fracture, sacrum/coccyx, Hyperglycemia - Scribe Statement The provider has reviewed the documentation as recorded by the Sonia Hernandez Provider Attestation: All medical record entries made by the Saydaibadiel were at my direction and personally dictated by me. I have reviewed the chart and agree that the record accurately reflects my personal performance of the history, physical exam, medical decision making, and the department course for this patient. I have also personally directed, reviewed, and agree with the discharge instructions and disposition.
--- NOTE | 2018-10-28 12:40 | RAD ---
Date of service: 10/28/2018 HISTORY: Chest pain COMPARISON: Comparison chest 11/20/2017 FINDINGS: LUNGS: Low lung volumes, crowded bronchovascular markings and minor bibasilar atelectasis PLEURA: No significant pleural effusion identified, no pneumothorax apparent. CARDIOVASCULAR: No aortic atherosclerotic calcification present. Normal cardiac size. No pulmonary vascular congestion. OSSEOUS STRUCTURES: No significant abnormalities. VISUALIZED UPPER ABDOMEN: Normal. OTHER FINDINGS: None. IMPRESSION: Low lung volumes, crowded bronchovascular markings and minor bibasilar atelectasis
--- NOTE | 2018-10-28 12:54 | RAD ---
Date of service: The x-rays on 10/28/2018 PROCEDURE: Radiographs of the Sacrum and Coccyx HISTORY: Fall-pain. COMPARISON: None available. TECHNIQUE: Frontal and lateral views of the sacrum and coccyx FINDINGS: The examination is limited by overlying bowel related type artifact. BONES: There is a subtle diagonally oriented lucency traversing the distal sacrum/coccygeal junction on lateral projection with minimal cortical step. Possibility of a nondisplaced or minimally displaced fracture not excluded. Follow-up CT scan is recommended Note made of moderate to fairly significant degenerative spondylosis lower lumbosacral spine. There is a cardiothoracic the approximately grade 1 subluxation of L4 over L5. SACROILIAC JOINTS: U SI joints intact. Minimal sclerosis. OTHER FINDINGS: None. IMPRESSION: There is a subtle diagonally oriented lucency traversing the distal sacrum/coccygeal junction on lateral projection with minimal cortical step. Possibility of a nondisplaced or minimally displaced fracture not excluded. Follow-up CT scan is recommended Note made of moderate to fairly significant degenerative spondylosis lower lumbosacral spine. There is a and a approximately grade 1 subluxation of L4 over L5. Note that this report was placed in [facility] review folder for follow up.
[2018-10-28] MEDS ORDERED: Sodium Chloride 0.9% 1,000 ML IV ONE (13:08)
[2018-10-28] MEDS ORDERED: Iodixanol 320 MG/ML 100 ML BOTTLE IV ONE (13:17)
[2018-10-28] MEDS ORDERED: Sodium Chloride 0.9% 1,000 ML ONE (13:29)
--- NOTE | 2018-10-28 15:02 | CT ---
Date of service: 10/28/2018 CTA chest PE protocol Indication: chest pain Technique: Contiguous axial images were obtained through the chest with intravenous contrast enhancement. Sagittal and coronal reconstructions were generated and reviewed. This CT exam was performed using 1 or more of the following dose reduction techniques: Automated exposure control, adjustment of the MAA and/or kV according to patient size, and/or use of iterative reconstruction technique. IV contrast: 100 mL Visipaque 320 IV Radiation dose (DLP): 524.61 MGy-cm. Comparison: Chest x-ray performed 10/28/18 Findings: Visualized portions of the inferior thyroid gland appear unremarkable. The mediastinal and hilar vascular structures appear within normal limits. Heart size appears top-normal. Coronary artery calcifications. No large central or segmental pulmonary embolus evident. Biapical pleural thickening. Patchy right basilar atelectasis/pneumonia. No pleural effusion. No pneumothorax. Moderate hiatal hernia/patulous distal esophagus. Esophageal wall thickening; correlate clinically for possibility of esophagitis. Suggest further evaluation with endoscopy if indicated. Limited visualized portions of the upper abdomen appear grossly unremarkable. Elevation of the right hemidiaphragm. Osseous demineralization. Degenerative changes. Impression: No large central or segmental pulmonary embolus evident. Patchy right basilar atelectasis/pneumonia. Biapical pleural thickening. Moderate hiatal hernia/patulous distal esophagus. Esophageal wall thickening; correlate clinically for possibility of esophagitis. Suggest further evaluation with endoscopy if indicated.
[2018-10-28 15:28] LABS: SQUAMOUS EPITHIAL < 1 /hpf (0-5); URINE BILIRUBIN NEGATIVE (NEGATIVE); URINE BLOOD NEGATIVE (NEGATIVE); URINE CLARITY Clear (Clear); URINE COLOR Yellow (YELLOW); URINE GLUCOSE (UA) NORMAL (Normal); URINE LEUKOCYTE ESTERASE 2+ Leu/uL (Negative); URINE PROTEIN NEGATIVE (NEGATIVE); URINE UROBILINOGEN NORMAL mg/dL (0.2-1.0)
[2018-10-28 18:00] VITALS: RESP 20
[2018-10-28] MEDS ORDERED: (Novolog Mix 70/30) Insulin Aspart/Insulin Aspar 100 units/ml SC SCH (18:30)
--- NOTE | 2018-10-28 18:46 | CP.PCM.HP ---
History of Present Illness - History of Present Illness History of Present Illness: Admitted this 78 years old female beacuase of an episode of an syncopal attack this AM. She apparently did not feel well, but no dizziness when she suddenly found herself on the floor, and hitting her butt. She had a terrible pain at the butt so she went to the ER where she was admitted. No headache associated with this, no nausea or vomnting associated. No palpitations associated with this episode, nor chest pains. Present on Admission - Present on Admission Any Indicators Present on Admission: Yes History of DVT/PE: Yes History of Uncontrolled Diabetes: No Urinary Catheter: No Decubitus Ulcer Present: No Review of Systems - EENT Eyes: Blurred Vision - Reproductive: Female Reproductive:Female: Menopausal Past Patient History - Infectious Disease Hx of Infectious Diseases: None - Past Medical History & Family History Past Medical History?: Yes - Past Social History Smoking Status: Never Smoked Chewing Tobacco Use: No Cigar Use: No Alcohol: None Drugs: Denies Home Situation {Lives}: Alone - CARDIAC Hx Cardiac Disorders: Yes Hx Hypercholesterolemia: Yes Hx Hypertension: Yes Hx Peripheral Edema: Yes - PULMONARY Hx Respiratory Disorders: No - NEUROLOGICAL Hx Neurological Disorder: Yes Hx Syncope: Yes (See HPI) Hx Transient Ischemic Attacks (TIA): Yes - HEENT Hx HEENT Problems: Yes Hx Cataracts: Yes Hx Glaucoma: Yes 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 - RENAL Hx Chronic Kidney Disease: No - ENDOCRINE/METABOLIC Hx Endocrine Disorders: Yes Hx Diabetes Mellitus Type 2: Yes - HEMATOLOGICAL/ONCOLOGICAL Hx Blood Disorders: No Hx Human Immunodeficiency Virus (HIV): No - INTEGUMENTARY Hx Dermatological Problems: No - MUSCULOSKELETAL/RHEUMATOLOGICAL Hx Musculoskeletal Disorders: No Hx Arthritis: No Hx Falls: No - GASTROINTESTINAL Hx Gastrointestinal Disorders: No Hx Crohn's Disease: No Hx Diverticulitis: No Hx Gall Bladder Disease: No Hx Gastritis: No - GENITOURINARY/GYNECOLOGICAL Hx Genitourinary Disorders: No - PSYCHIATRIC Hx Psychophysiologic Disorder: No Hx Substance Use: No (Rarely) - SURGICAL HISTORY Hx Surgeries: Yes Other/Comment: LEFT EYE SURGERY, DUE TO RETINAL DETACHMENT - ANESTHESIA Hx Anesthesia: Yes Hx Anesthesia Reactions: No Hx Malignant Hyperthermia: No Meds Allergies/Adverse Reactions: Allergies Allergy/AdvReac Type Severity Reaction Status Date / Time codeine AdvReac DIZZINESS Verified 10/28/18 09:07 Physical Exam - Constitutional Appears: Well, No Acute Distress - Head Exam Head Exam: ATRAUMATIC, NORMAL INSPECTION, NORMOCEPHALIC - Eye Exam Eye Exam: EOMI, Normal appearance, PERRL Pupil Exam: NORMAL ACCOMODATION, PERRL - ENT Exam ENT Exam: Mucous Membranes Moist, Normal Exam - Neck Exam Neck exam: Positive for: Normal Inspection - Respiratory Exam Respiratory Exam: Clear to Auscultation Bilateral, NORMAL BREATHING PATTERN - Cardiovascular Exam Cardiovascular Exam: REGULAR RHYTHM, +S1, +S2 - GI/Abdominal Exam GI & Abdominal Exam: Normal Bowel Sounds - Rectal Exam Rectal Exam: Deferred - Extremities Exam Extremities exam: Positive for: normal inspection - Neurological Exam Neurological exam: Alert, Oriented x3, Reflexes Normal - Expanded Neurological Exam Expanded Patient oriented to: person, place, time Cranial nerves: EOM's Intact: Normal, Nystagmus: Normal, Tongue Deviation: Normal Ataxia: No Cerebellar Function: Finger to Nose: Normal, Heel to Scott: Normal, Romberg: Normal Upper motor neuron: Babinski Sign: Normal, Wilberto Neglect: Normal, Pronator Drift: Normal Sensory exam: Lower Extremity 2 Point Discrimination: Normal, Lower Extremity Light Touch: Normal, Lower Extremity Pin Prick: Normal, Lower Extremity Temperature: Normal, Upper Extremity 2 Point Discrimination: Normal, Upper Extremity Light Touch: Normal, Upper Extremity Pin Prick: Normal, Upper Extremity Temperature: Normal Neuro motor strength exam: Left Upper Extremity: 5, Right Upper Extremity: 5, Left Lower Extremity: 5, Right Lower Extremity: 5 DTR: Achilles Tendon Left: 4+, Achilles Tendon Right: 4+, Bicep Left: 4+, Bicep Right: 4+, Brachioradialis Left: 4+, Brachioradialis Right: 4+, Patellar Left: 4 +, Patellar Right: 4+, Tricep Left: 4+, Tricep Right: 4+ Coma Scale Motor Response: Localizes to Pain, Withdraws to Pain Coma Scale Verbal: Oriented - Psychiatric Exam Psychiatric exam: Normal Affect, Normal Mood - Skin Skin Exam: Intact, Normal Color, Warm Results - Vital Signs Recent Vital Signs: Last Vital Signs Temp 97.8 F 10/28/18 17:59 Pulse 70 10/28/18 17:59 Resp 20 10/28/18 17:59 BP 179/69 H 10/28/18 17:59 Pulse Ox 100 10/28/18 17:59 - Labs Result Diagrams: 10/28/18 10:30 10/28/18 10:30 Labs: Laboratory Results - last 24 hr 10/28/18 10/28/18 10/28/18 09:24 10:30 10:30 WBC 9.7 RBC 4.26 Hgb 13.0 Hct 39.4 MCV 92.5 MCH 30.6 MCHC 33.1 RDW 12.9 Plt Count 184 MPV 10.1 Neut % (Auto) 74.3 Lymph % (Auto) 16.2 L Amelia % (Auto) 7.6 Eos % (Auto) 1.0 Baso % (Auto) 0.9 Neut # (Auto) 7.2 H Lymph # (Auto) 1.6 Amelia # (Auto) 0.7 Eos # (Auto) 0.1 Baso # (Auto) 0.1 PT 14.3 H INR 1.3 APTT 44 H Sodium Potassium Chloride Carbon Dioxide Anion Gap BUN Creatinine Est GFR ( Amer) Est GFR (Non-Af Amer) POC Glucose (mg/dL) 161 H Random Glucose Calcium Total Bilirubin AST ALT Alkaline Phosphatase Troponin I Total Protein Albumin Globulin Albumin/Globulin Ratio Urine Color Urine Clarity Urine pH Ur Specific [place] Urine Protein Urine Glucose (UA) Urine Ketones Urine Blood Urine Nitrate Urine Bilirubin Urine Urobilinogen Ur Leukocyte Esterase Urine WBC (Auto) Urine RBC (Auto) Ur Squamous Epith Cells Urine HCG, Qual 10/28/18 10/28/18 10/28/18 10:30 14:21 15:19 WBC RBC Hgb Hct MCV MCH MCHC RDW Plt Count MPV Neut % (Auto) Lymph % (Auto) Amelia % (Auto) Eos % (Auto) Baso % (Auto) Neut # (Auto) Lymph # (Auto) Amelia # (Auto) Eos # (Auto) Baso # (Auto) PT INR APTT Sodium 138 Potassium 4.6 Chloride 108 H Carbon Dioxide 21 L Anion Gap 15 BUN 22 H Creatinine 1.4 H Est GFR ( Amer) 44 Est GFR (Non-Af Amer) 36 POC Glucose (mg/dL) Random Glucose 172 H D Calcium 9.5 Total Bilirubin 0.7 AST 28 ALT 22 Alkaline Phosphatase 60 Troponin I < 0.0120 Total Protein 7.7 Albumin 4.5 Globulin 3.1 Albumin/Globulin Ratio 1.4 Urine Color Yellow Urine Clarity Clear Urine pH 5.0 Ur Specific [place] 1.015 Urine Protein Negative Urine Glucose (UA) Normal Urine Ketones Negative Urine Blood Negative Urine Nitrate Negative Urine Bilirubin Negative Urine Urobilinogen Normal Ur Leukocyte Esterase 2+ H Urine WBC (Auto) 2 Urine RBC (Auto) 1 Ur Squamous Epith Cells < 1 Urine HCG, Qual Negative 10/28/18 16:34 WBC RBC Hgb Hct MCV MCH MCHC RDW Plt Count MPV Neut % (Auto) Lymph % (Auto) Amelia % (Auto) Eos % (Auto) Baso % (Auto) Neut # (Auto) Lymph # (Auto) Amelia # (Auto) Eos # (Auto) Baso # (Auto) PT INR APTT Sodium Potassium Chloride Carbon Dioxide Anion Gap BUN Creatinine Est GFR ( Amer) Est GFR (Non-Af Amer) POC Glucose (mg/dL) 127 H Random Glucose Calcium Total Bilirubin AST ALT Alkaline Phosphatase Troponin I Total Protein Albumin Globulin Albumin/Globulin Ratio Urine Color Urine Clarity Urine pH Ur Specific [place] Urine Protein Urine Glucose (UA) Urine Ketones Urine Blood Urine Nitrate Urine Bilirubin Urine Urobilinogen Ur Leukocyte Esterase Urine WBC (Auto) Urine RBC (Auto) Ur Squamous Epith Cells Urine HCG, Qual Assessment & Plan - Assessment and Plan (Free Text) Assessment: Assessment: Syncope cause to be determined HTN NIDDM CAD Old Phebitis lower extremityy, left Old Lacunar infarcts Plan: Plan: MRI, MRA brain. Carotid doppler Eeg Continue previous medications - Date & Time Date: 10/28/18 Time: 18:54
[2018-10-28] MEDS: Tramadol 25 mg PO PRN (23:45)
[2018-10-29] MEDS ORDERED: (Novolog Mix 70/30) Insulin Aspart/Insulin Aspar 100 units/ml SC SCH ×2 (07:30→21:41)
[2018-10-29] MEDS: (Novolog Mix 70/30) Insulin Aspart/Insulin Aspar 100 units/ml SC SCH ×2 (08:33→18:42)
[2018-10-29] MEDS: Metoprolol Succinate 100 mg XL Tab PO SCH (10:45)
--- NOTE | 2018-10-29 10:52 | CP.PCM.PN ---
Subjective - Date & Time of Evaluation Date of Evaluation: 10/29/18 Time of Evaluation: 10:48 - Subjective Subjective: Patient has no dizziness/headaches/syncopal attack. EEG, MRI/MRA head,/Carotid doppler/ Cat sacan of the lumabar spines all done but unfortunately no results are posted. Vital signs are stable. Afebrile. No neurological deficits elicited. Objective - Vital Signs/Intake and Output Vital Signs (last 24 hours): Temp Pulse Resp BP Pulse Ox 97.9 F 72 20 126/65 100 10/29/18 08:00 10/29/18 08:00 10/29/18 08:00 10/29/18 08:00 10/29/18 09:41 Intake and Output: 10/29/18 10/29/18 06:59 18:59 Intake Total 360 Balance 360 - Medications Medications: Current Medications Amlodipine Besylate (Norvasc) 5 mg PO DAILY [facility] Last Admin: 10/29/18 10:46 Dose: 5 mg Apixaban (Eliquis) 5 mg PO BID [facility] Last Admin: 10/29/18 10:45 Dose: 5 mg Insulin Aspart (Novolog Mix 70/30 (70/30 Units/Ml)) 15 units SC ACBD [facility] Last Admin: 10/29/18 08:33 Dose: Not Given Losartan Potassium (Cozaar) 25 mg PO DAILY [facility] Last Admin: 10/29/18 10:45 Dose: 25 mg Metoprolol Succinate (Toprol Xl) 100 mg PO DAILY [facility] Last Admin: 10/29/18 10:45 Dose: 100 mg Tramadol HCl (Ultram) 25 mg PO TID PRN PRN Reason: Pain, severe (8-10) Last Admin: 10/28/18 23:45 Dose: 25 mg - Labs Labs: 10/28/18 10:30 10/28/18 10:30 PT 14.3 SECONDS (9.7-12.2) H 10/28/18 10:30 INR 1.3 10/28/18 10:30 APTT 44 SECONDS (21-34) H 10/28/18 10:30 - Constitutional Appears: Well, No Acute Distress - Head Exam Head Exam: ATRAUMATIC, NORMAL INSPECTION, NORMOCEPHALIC - Eye Exam Eye Exam: EOMI, Normal appearance Pupil Exam: NORMAL ACCOMODATION, PERRL - ENT Exam ENT Exam: Normal Exam, Normal External Ear Exam - Neck Exam Neck Exam: Full ROM, Normal Inspection - Respiratory Exam Respiratory Exam: Clear to Ausculation Bilateral, NORMAL BREATHING PATTERN - Cardiovascular Exam Cardiovascular Exam: REGULAR RHYTHM, +S1, +S2 - GI/Abdominal Exam GI & Abdominal Exam: Soft, Normal Bowel Sounds - Rectal Exam Rectal Exam: Deferred - Extremities Exam Extremities Exam: Full ROM, Normal Inspection - Back Exam Back Exam: Full ROM - Neurological Exam Neurological Exam: Alert, Awake, Oriented x3 Neuro motor strength exam: Left Upper Extremity: 5, Right Upper Extremity: 5, Left Lower Extremity: 5, Right Lower Extremity: 5 - Psychiatric Exam Psychiatric exam: Normal Affect, Normal Mood - Skin Skin Exam: Intact, Normal Color, Warm Assessment and Plan (1) Syncope Status: Acute (2) Type 2 diabetes mellitus with insulin therapy Status: Chronic (3) Hypertension Status: Chronic (4) CAD (coronary artery disease) Status: Chronic (5) Phlebitis of left lower extremity Status: Acute (6) Hyperlipidemia Status: Chronic - Assessment and Plan (Free Text) Plan: Plan: Check all results. Neurology consults
--- NOTE | 2018-10-29 11:17 | MRI ---
Date of service: 10/29/2018 PROCEDURE: MRI BRAIN WITHOUT CONTRAST HISTORY: Syncope COMPARISON: Noncontrast head CT from 10/28/2018 TECHNIQUE: Multiplanar, multisequence MR images of the brain were obtained without intravenous contrast enhancement. FINDINGS: HEMORRHAGE: None DWI: No evidence of an acute or early subacute infarction. BRAIN PARENCHYMA: There are minimal chronic microangiopathic changes. There is no mass, mass effect or abnormal extra-axial fluid collection. There is no territorial infarction. The midline sagittal structures are normal. VENTRICLES: There is mild age-related global parenchymal volume loss and proportionate enlargement of the ventricles and cortical sulci. CRANIUM: There is normal bone marrow signal pattern. There is mild hyperostosis frontalis interna. There is right frontal bony exostosis. ORBITS: Grossly unremarkable. PARANASAL SINUSES/MASTOIDS: Clear VASCULAR SYSTEM: Skull base flow voids intact. OTHER FINDINGS: None. IMPRESSION: No acute intracranial abnormality. Minimal chronic microangiopathic changes and mild age-related global parenchymal volume loss.
--- NOTE | 2018-10-29 11:21 | MRI ---
Date of service: 10/29/2018 PROCEDURE: Magnetic Resonance Angiography Brain HISTORY: syncope COMPARISON: None available. TECHNIQUE: 3D time of flight MR angiography of the intracranial arteries was performed. Rotating maximum intensity projection images were generated. FINDINGS: INTERNAL CAROTID ARTERIES: Normal flow related signal. The skull base, petrous, cavernous and supraclinoid segments are bilaterally widely patient. ANTERIOR CEREBRAL ARTERIES: Normal flow related signal. A1 and A2 segments are widely patent. Smaller distal branches unremarkable, as visualized. MIDDLE CEREBRAL ARTERIES: Normal flow related signal. M1 and M2 segments are widely patent. Perisylvian branches grossly symmetric. POSTERIOR CIRCULATION: Basilar Artery: Normal flow related signal. Normal in caliber and widely patent. Distal Vertebral Arteries: Normal flow related signal. Widely patent. Posterior Cerebral Arteries: Normal flow related signal. Widely patent. There is origin of the left posterior cerebral artery, an anatomic variant. Posterior Inferior Cerebellar Arteries: Normal flow related signal. Widely patent. ANEURYSM/ VASCULAR MALFORMATIONS: None. OTHER FINDINGS: None. IMPRESSION: No evidence for occlusion, definite significant stenosis or saccular aneurysm.
--- NOTE | 2018-10-29 11:26 | VASCLAB ---
Date of service: 10/29/2018 PROCEDURE: Carotid Duplex Exam. HISTORY: Syncope COMPARISON: None available. TECHNIQUE: Grayscale and duplex Doppler evaluation of the cervical carotid and vertebral arteries were performed. The common carotid, carotid bifurcations and cervical Internal Carotid Artery (ICA) and proximal External Carotid Artery (ECA) were evaluated. The vertebral arteries were evaluated for gross patency and flow direction. Report prepared by RUT White FINDINGS: RIGHT CAROTID ARTERIES: 1. Common Carotid Artery: No significant focal plaque formation of the right common carotid artery. Maximum Peak Systolic velocity: 103 cm/sec: End-diastolic velocity 11 cm/sec. 2. Carotid Bifurcation: plaque formation. Maximum Peak Systolic velocity: 81 cm/sec: End-diastolic velocity 8 cm/sec. 3. Internal Carotid Artery: Plaque description: Minimal calcific 3.1. Proximal Segment: Peak systolic velocity 65 cm/sec: End-diastolic velocity 14 cm/sec - % stenosis 0-15% 3.2. Middle Segment: Peak systolic velocity 130 cm/sec: End-diastolic velocity 22 cm/sec - % stenosis 0-15% 3.3. Distal Segment: Peak systolic velocity 116 cm/sec: End-diastolic velocity 20 cm/sec - % stenosis 0-15% 4. External Carotid Artery: No significant focal plaque formation. Peak systolic velocity 189 cm/sec 5. ICA/CCA Ratio: 1.5 LEFT CAROTID ARTERIES: 1. Common Carotid Artery: No significant focal plaque formation of the left common carotid artery. Maximum Peak Systolic velocity: 106 cm/sec: End-diastolic velocity 20 cm/sec. 2. Carotid Bifurcation: plaque formation. Maximum Peak Systolic velocity: 69 cm/sec: End-diastolic velocity 6 cm/sec. 3. Internal Carotid Artery: Plaque description: Heterogeneous 3.1. Proximal Segment: Peak systolic velocity 100 cm/sec: End-diastolic velocity 20 cm/sec - % stenosis 0-15% 3.2. Middle Segment: Peak systolic velocity 100 cm/sec: End-diastolic velocity 16 cm/sec - % stenosis 0-15% 3.3. Distal Segment: Peak systolic velocity 90 cm/sec: End-diastolic velocity 19 cm/sec - % stenosis 0-15% 4. External Carotid Artery: No significant focal plaque formation. Peak systolic velocity 104 cm/sec 5. ICA/CCA Ratio: 1.1 VERTEBRAL ARTERIES: 1. Right Vertebral Artery: The right vertebral artery flow direction is antegrade. 2. Left Vertebral Artery: The left vertebral artery flow direction is antegrade. OTHER FINDINGS: 1. Right Brachial Blood pressure: 120 mmHg. 2. Left Brachial Blood pressure: 125 mmHg. IMPRESSION: RIGHT: Duplex scan does not suggest hemodynamically significant stenosis of the right extracranial carotid arteries. LEFT: Duplex scan does not suggest hemodynamically significant stenosis of the left extracranial carotid arteries.
--- NOTE | 2018-10-29 11:31 | VASCLAB ---
Date of service: 10/28/2018 PROCEDURE: Left Lower Extremity Venous Duplex Exam. HISTORY: Pain Swelling PRIORS: None. TECHNIQUE: Left common femoral, femoral, popliteal and posterior tibial, peroneal and great saphenous veins were evaluated. Flow was assessed with color Doppler, compressibility, assessment of phasic flow and augmentation response. Report prepared by EZRA Carrero, RVT FINDINGS: LEFT: 1. Common Femoral Vein: 1.1. Compressibility - Fully compressible: Thrombus - None : Flow - Phasic: Augmentation -Normal: Reflux - None. 2. Femoral Vein: 2.1. Compressibility - Fully compressible: Thrombus - None: Flow - Phasic: Augmentation -Normal: Reflux - Yes. 3. Popliteal Vein: 3.1. Compressibility - Fully compressible: Thrombus - None: Flow - Phasic: Augmentation -Normal: Reflux - Yes. 4. Posterior Tibial Vein: 4.1. Compressibility - Fully compressible: Thrombus - None: Flow - Phasic: Augmentation -Normal: Reflux - None. 5. Peroneal Vein: 5.1. Compressibility - Fully compressible: Thrombus - None: Flow - Phasic: Augmentation -Normal: Reflux - Yes. 6. Great Saphenous Vein: 6.1. Compressibility - Fully compressible: Thrombus - None: Flow - Phasic: Augmentation - Normal: Reflux - None. OTHER FINDINGS: IMPRESSION: No evidence of deep or superficial vein thrombosis of the left lower extremity with excellent venous flow. Valvular incompetence of the left femoral, popliteal and peroneal veins. Normal venous flow noted in the right common femoral vein with intima wall thickening.
[2018-10-29 12:19] LABS: CK-MB 2.76 ng/mL (0.0-3.38)
[2018-10-29] MEDS: Tramadol 25 mg PO PRN (12:46)
--- NOTE | 2018-10-29 13:13 | CT ---
Date of service: 10/28/2018 PROCEDURE: CT Lumbar Spine without contrast HISTORY: Patient feel on her butt with a lot of pain COMPARISON: None available. TECHNIQUE: Axial computed tomography images were obtained of the lumbar spine without the use of intravenous contrast. Coronal and sagittal reformatted images were created and reviewed. Radiation dose: Total exam DLP = 450.67 mGy-cm. This CT exam was performed using one or more of the following dose reduction techniques: Automated exposure control, adjustment of the mA and/or kV according to patient size, and/or use of iterative reconstruction technique. FINDINGS: VERTEBRAE: There is degenerative 6 mm anterior listhesis of L4 on L5. There is normal lumbar lordosis. There is severe diffuse bone demineralization. There is no acute fracture or spondylolysis. There is advanced degenerative endplate sclerosis at L4-5. DISCS/SPINAL CANAL/NEURAL FORAMINA: Evaluation of the discs and spinal canal is limited on noncontrast CT examination. Allowing for this, there is desiccation of the L4-5 and L5-S1 discs with vacuum phenomenon. L1-2: No large disc herniation, neural foraminal or spinal canal stenosis. L2-3: No large disc herniation, neural foraminal or spinal canal stenosis. L3-4: Diffuse posterior disc bulge in conjunction with moderate ligamentum flavum infolding result in mild spinal canal stenosis. Mild bilateral facet arthropathy contribute to moderate neural foraminal narrowing. L4-5: Diffuse posterior disc bulge in conjunction with moderate ligamentum flavum infolding result in moderate spinal canal stenosis. Moderate bilateral facet arthropathy contribute to moderate neural foraminal narrowing. L5-S1: Moderate diffuse posterior disc bulge in conjunction with mild ligamentum flavum infolding result in mild spinal canal stenosis. Also noted is superimposed right posterolateral disc protrusion which likely abuts the traversing right S1 nerve root. Mild bilateral facet arthropathy contribute to severe neural foraminal narrowing. PARASPINAL SOFT TISSUES: The paraspinous soft tissues are normal. Imaged portion of the retroperitoneum is within normal limits. OTHER FINDINGS: None. IMPRESSION: 1. No acute fracture or spondylolysis. 2. Advanced multilevel degenerative disc disease in the lower lumbar spine, worse at L4-5 with grade 1 anterior listhesis of L4 on L5, moderate spinal canal stenosis and moderate neural foraminal narrowing. 3. At L5-S1 mild spinal canal stenosis and severe neural foraminal narrowing. Also noted is superimposed right posterolateral disc protrusion which likely abuts the traversing right S1 nerve root. A preliminary report was provided by [employer].
[2018-10-29 21:16] LABS: PROLACTIN 9.6 ng/mL (3.0-18.9)
[2018-10-30 06:19] LABS: BASO # 0.1 K/uL (0.0-0.2); BASO % 0.6 % (0.0-2.0); EOS # 0.2 K/uL (0.0-0.7); LYMPH # 2.1 K/uL (1.0-4.3); LYMPH % 21.3 % (20.0-40.0); MEAN CELL VOLUME 92.2 fL (81.0-99.0); MEAN CORPUSCULAR HEMOGLOBIN 30.8 pg (27.0-31.0); MEAN CORPUSCULAR HGB CONC 33.4 g/dL (33.0-37.0); MEAN PLATELET VOLUME 9.5 fL (7.2-11.7); MONO # 0.9 K/uL (0.0-0.8); MONO % 9.4 % (0.0-10.0); NEUT # 6.6 K/uL (1.8-7.0); NEUT % 66.7 % (50.0-75.0); RBC 4.23 Mil/uL (3.80-5.20); RED CELL DISTRIBUTION WIDTH 12.8 % (11.5-14.5)
[2018-10-30 07:07] LABS: ALB/GLOB RATIO 1.5 (1.0-2.1); ALBUMIN 4.1 g/dL (3.5-5.0)
--- NOTE | 2018-10-30 07:27 | CP.PCM.CON ---
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 - RENAL Hx Chronic Kidney Disease: No - ENDOCRINE/METABOLIC Hx Endocrine Disorders: Yes Hx Diabetes Mellitus Type 2: Yes - HEMATOLOGICAL/ONCOLOGICAL Hx Human Immunodeficiency Virus (HIV): No - INTEGUMENTARY Hx Dermatological Problems: No - MUSCULOSKELETAL/RHEUMATOLOGICAL Hx Arthritis: No - GASTROINTESTINAL Hx Crohn's Disease: No Hx Diverticulitis: No Hx Gall Bladder Disease: No Hx Gastritis: No - GENITOURINARY/GYNECOLOGICAL Hx Genitourinary Disorders: No - PSYCHIATRIC Hx Substance Use: No (Rarely) - SURGICAL HISTORY Hx Surgeries: Yes Other/Comment: LEFT EYE SURGERY, DUE TO RETINAL DETACHMENT - ANESTHESIA Hx Anesthesia: Yes Hx Anesthesia Reactions: No Hx Malignant Hyperthermia: No Meds Allergies/Adverse Reactions: Allergies Allergy/AdvReac Type Severity Reaction Status Date / Time codeine AdvReac DIZZINESS Verified 10/28/18 09:07 - Medications Medications: Current Medications Amlodipine Besylate (Norvasc) 5 mg PO DAILY [facility] Last Admin: 10/29/18 10:46 Dose: 5 mg Apixaban (Eliquis) 5 mg PO BID [facility] Last Admin: 10/29/18 17:35 Dose: 5 mg Docusate Sodium (Colace) 100 mg PO BID [facility] Last Admin: 10/29/18 19:11 Dose: 100 mg Insulin Aspart (Novolog Mix 70/30 (70/30 Units/Ml)) 10 units SC ACBD [facility] Losartan Potassium (Cozaar) 25 mg PO DAILY [facility] Last Admin: 10/29/18 10:45 Dose: 25 mg Metoprolol Succinate (Toprol Xl) 100 mg PO DAILY [facility] Last Admin: 10/29/18 10:45 Dose: 100 mg Tramadol HCl (Ultram) 25 mg PO TID PRN PRN Reason: Pain, severe (8-10) Last Admin: 10/29/18 12:46 Dose: 25 mg Results - Vital Signs Recent Vital Signs: Last Vital Signs Temp 98.2 F 10/29/18 23:00 Pulse 65 10/29/18 23:00 Resp 20 10/29/18 23:00 BP 129/57 L 10/29/18 23:00 Pulse Ox 96 10/29/18 23:00 - Labs Result Diagrams: 10/30/18 06:15 10/30/18 06:15 Labs: Laboratory Results - last 24 hr 10/29/18 10/29/18 10/29/18 11:46 15:53 20:43 WBC RBC Hgb Hct MCV MCH MCHC RDW Plt Count MPV Neut % (Auto) Lymph % (Auto) Frio % (Auto) Eos % (Auto) Baso % (Auto) Neut # (Auto) Lymph # (Auto) Frio # (Auto) Eos # (Auto) Baso # (Auto) Sodium Potassium Chloride Carbon Dioxide Anion Gap BUN Creatinine Est GFR ( Amer) Est GFR (Non-Af Amer) POC Glucose (mg/dL) 207 H Random Glucose Calcium Magnesium 2.0 Total Bilirubin AST ALT Alkaline Phosphatase Total Creatine Kinase 350 H CK-MB (Mass) 2.76 Troponin I < 0.0120 Total Protein Albumin Globulin Albumin/Globulin Ratio Homocysteine 11.4 Prolactin 9.6 10/29/18 10/29/18 10/29/18 21:06 21:09 21:42 WBC RBC Hgb Hct MCV MCH MCHC RDW Plt Count MPV Neut % (Auto) Lymph % (Auto) Frio % (Auto) Eos % (Auto) Baso % (Auto) Neut # (Auto) Lymph # (Auto) Frio # (Auto) Eos # (Auto) Baso # (Auto) Sodium Potassium Chloride Carbon Dioxide Anion Gap BUN Creatinine Est GFR ( Amer) Est GFR (Non-Af Amer) POC Glucose (mg/dL) 59 L 54 L 106 Random Glucose Calcium Magnesium Total Bilirubin AST ALT Alkaline Phosphatase Total Creatine Kinase CK-MB (Mass) Troponin I Total Protein Albumin Globulin Albumin/Globulin Ratio Homocysteine Prolactin 03/07/19 03/07/19 03/07/19 06:15 06:15 06:30 WBC 10.0 RBC 4.23 Hgb 13.0 Hct 39.0 MCV 92.2 MCH 30.8 MCHC 33.4 RDW 12.8 Plt Count 188 MPV 9.5 Neut % (Auto) 66.7 Lymph % (Auto) 21.3 Frio % (Auto) 9.4 Eos % (Auto) 2.0 Baso % (Auto) 0.6 Neut # (Auto) 6.6 Lymph # (Auto) 2.1 Frio # (Auto) 0.9 H Eos # (Auto) 0.2 Baso # (Auto) 0.1 Sodium 135 Potassium 3.9 Chloride 102 Carbon Dioxide 28 Anion Gap 9 L BUN 14 Creatinine 1.1 Est GFR ( Amer) 58 Est GFR (Non-Af Amer) 48 POC Glucose (mg/dL) 124 H Random Glucose 101 D Calcium 9.0 Magnesium Total Bilirubin 0.7 AST 42 H D ALT 17 Alkaline Phosphatase 56 Total Creatine Kinase CK-MB (Mass) Troponin I Total Protein 6.8 Albumin 4.1 Globulin 2.7 Albumin/Globulin Ratio 1.5 Homocysteine Prolactin
[2018-10-30 08:13] VITALS: BP 139/71; PULSE 66; TEMP 97.3; O2SAT 95
[2018-10-30] MEDS: Metoprolol Succinate 100 mg XL Tab PO SCH (10:01)
--- NOTE | 2018-10-30 10:55 | CP.PCM.DIS ---
Provider - Provider Date of Admission: 10/28/18 15:43 Attending physician: Arabella Vigil MD Consults: 10/29/18 11:05 Neurology Consult Routine Comment: Consulting Provider: Rocky Murray Consulting Physician: Rocky Murray Reason for Consult: Syncope Time Spent in preparation of Discharge (in minutes): 70 Diagnosis - Discharge Diagnosis (1) Syncope Status: Acute (2) Type 2 diabetes mellitus with insulin therapy Status: Chronic (3) Hypertension Status: Chronic (4) CAD (coronary artery disease) Status: Chronic (5) Phlebitis of left lower extremity Status: Ruled-out (6) Hyperlipidemia Status: Chronic Hospital Course - Lab Results Lab Results: Most Recent Lab Values WBC 10.0 K/uL (4.8-10.8) 10/30/18 06:15 RBC 4.23 Mil/uL (3.80-5.20) 10/30/18 06:15 Hgb 13.0 g/dL (11.0-16.0) 10/30/18 06:15 Hct 39.0 % (34.0-47.0) 10/30/18 06:15 MCV 92.2 fL (81.0-99.0) 10/30/18 06:15 MCH 30.8 pg (27.0-31.0) 10/30/18 06:15 MCHC 33.4 g/dL (33.0-37.0) 10/30/18 06:15 RDW 12.8 % (11.5-14.5) 10/30/18 06:15 Plt Count 188 K/uL (130-400) 10/30/18 06:15 MPV 9.5 fL (7.2-11.7) 10/30/18 06:15 Neut % (Auto) 66.7 % (50.0-75.0) 10/30/18 06:15 Lymph % (Auto) 21.3 % (20.0-40.0) 10/30/18 06:15 [place] % (Auto) 9.4 % (0.0-10.0) 10/30/18 06:15 Eos % (Auto) 2.0 % (0.0-4.0) 10/30/18 06:15 Baso % (Auto) 0.6 % (0.0-2.0) 10/30/18 06:15 Neut # (Auto) 6.6 K/uL (1.8-7.0) 10/30/18 06:15 Lymph # (Auto) 2.1 K/uL (1.0-4.3) 10/30/18 06:15 [place] # (Auto) 0.9 K/uL (0.0-0.8) H 10/30/18 06:15 Eos # (Auto) 0.2 K/uL (0.0-0.7) 10/30/18 06:15 Baso # (Auto) 0.1 K/uL (0.0-0.2) 10/30/18 06:15 PT 14.3 SECONDS (9.7-12.2) H 10/28/18 10:30 INR 1.3 10/28/18 10:30 APTT 44 SECONDS (21-34) H 10/28/18 10:30 Sodium 135 mmol/L (132-148) 10/30/18 06:15 Potassium 3.9 mmol/L (3.6-5.2) 10/30/18 06:15 Chloride 102 mmol/L (98-107) 10/30/18 06:15 Carbon Dioxide 28 mmol/L (22-30) 10/30/18 06:15 Anion Gap 9 (10-20) L 10/30/18 06:15 BUN 14 mg/dL (7-17) 10/30/18 06:15 Creatinine 1.1 mg/dL (0.7-1.2) 10/30/18 06:15 Est GFR ( Amer) 58 10/30/18 06:15 Est GFR (Non-Af Amer) 48 10/30/18 06:15 POC Glucose (mg/dL) 124 mg/dL (65-110) H 10/30/18 06:30 Random Glucose 101 mg/dL (65-105) D 10/30/18 06:15 Calcium 9.0 mg/dl (8.6-10.4) 10/30/18 06:15 Magnesium 2.0 mg/dL (1.6-2.3) 10/29/18 20:43 Total Bilirubin 0.7 mg/dL (0.2-1.3) 10/30/18 06:15 AST 42 U/L (14-36) H D 10/30/18 06:15 ALT 17 U/L (9-52) 10/30/18 06:15 Alkaline Phosphatase 56 U/L (38-126) 10/30/18 06:15 Total Creatine Kinase 350 U/L (30-135) H 10/29/18 11:46 CK-MB (Mass) 2.76 ng/mL (0.0-3.38) 10/29/18 11:46 Troponin I < 0.0120 ng/mL (0.00-0.120) 10/29/18 11:46 Total Protein 6.8 g/dL (6.3-8.3) 10/30/18 06:15 Albumin 4.1 g/dL (3.5-5.0) 10/30/18 06:15 Globulin 2.7 gm/dL (2.2-3.9) 10/30/18 06:15 Albumin/Globulin Ratio 1.5 (1.0-2.1) 10/30/18 06:15 Homocysteine 11.4 umol/L (4.7-12.6) 10/29/18 20:43 Prolactin 9.6 ng/mL (3.0-18.9) 10/29/18 20:43 Urine Color Yellow (YELLOW) 10/28/18 15:19 Urine Clarity Clear (Clear) 10/28/18 15:19 Urine pH 5.0 (5.0-8.0) 10/28/18 15:19 Ur Specific [place] 1.015 (1.003-1.030) 10/28/18 15:19 Urine Protein Negative mg/dL (NEGATIVE) 10/28/18 15:19 Urine Glucose (UA) Normal mg/dL (Normal) 10/28/18 15:19 Urine Ketones Negative mg/dL (NEGATIVE) 10/28/18 15:19 Urine Blood Negative (NEGATIVE) 10/28/18 15:19 Urine Nitrate Negative (NEGATIVE) 10/28/18 15:19 Urine Bilirubin Negative (NEGATIVE) 10/28/18 15:19 Urine Urobilinogen Normal mg/dL (0.2-1.0) 10/28/18 15:19 Ur Leukocyte Esterase 2+ Karlie/uL (Negative) H 10/28/18 15:19 Urine WBC (Auto) 2 /hpf (0-5) 10/28/18 15:19 Urine RBC (Auto) 1 /hpf (0-3) 10/28/18 15:19 Ur Squamous Epith Cells < 1 /hpf (0-5) 10/28/18 15:19 Urine HCG, Qual Negative (NEGATIVE) 10/28/18 14:21 - Hospital Course Hospital Course: Admitted this 78 years old female from the ER because of loss of consciousness just before she was brought to the hospital. She claims that she had the same episode that same week. She did not recall if she lost consciousness that time. She apparently fell on her butt and now she claims that she has a lot of pains at the butt. No seizures associated with this, nor did she have dizziness or headaches with this. Discharge Exam - Head Exam Head Exam: ATRAUMATIC, NORMAL INSPECTION, NORMOCEPHALIC - Eye Exam Eye Exam: EOMI, PERRL Pupil Exam: NORMAL ACCOMODATION - ENT Exam ENT Exam: Mucous Membranes Moist, Normal Exam, Normal External Ear Exam - Neck Exam Neck exam: Full Rom - Respiratory Exam Respiratory Exam: Clear to PA & Lateral, NORMAL BREATHING PATTERN, UNREMARKABLE - Cardiovascular Exam Cardiovascular Exam: REGULAR RHYTHM, +S1, +S2 - GI/Abdominal Exam GI & Abdominal Exam: Normal Bowel Sounds, Unremarkable - Rectal Exam Rectal Exam: Deferred - Extremities Exam Extremities exam: full ROM, normal inspection - Back Exam Back exam: FULL ROM, NORMAL INSPECTION, vertebral tenderness - Neurological Exam Neurological exam: Alert, Oriented x3, Reflexes Normal - Psychiatric Exam Psychiatric exam: Normal Affect, Normal Mood - Skin Skin Exam: Dry, Intact, Normal Color Discharge Plan - Follow Up Plan Disposition: HOME/ ROUTINE Instructions: Syncope (DC), Syncope (GEN), Syncope (Fainting) Additional Instructions: patient to see Dr. Murray as an outpatient. Venous doppler of the left lwer extremiy is normal. Will do a venous doppler at the right lower extremity. and if this is normal will discontinue the Eliquis.
--- NOTE | 2018-10-30 21:48 | CARD ---
APPROVED REPORT Date of service: 10/28/2018 EKG Measurement Heart [id number] <Conclusion> Poor data quality, interpretation may be adversely affected Normal sinus rhythm Possible Anterior infarct, age undetermined Abnormal ECG
--- NOTE | 2018-10-31 06:30 | CON ---
DATE: 10/30/2018 ATTENDING PHYSICIAN: Arabella Vigil MD LOCATION: Room 565, Bed 5. REASON FOR CONSULTATION: Syncope. The patient was brought into [facility] after she was found to have a syncopal attack in her kitchen. From neurological point of view, I was called in to evaluate her for further management. HISTORY OF PRESENT ILLNESS: Ms. Helen Constantino is a 78-year-old right-handed female presenting with; woke up fine on Saturday, trying to get up glass of water from the chair to the table; next thing she realized she was on the floor. Nobody witnessed how she fell down. Nobody witnessed any associated tonic-clonic activities at the scene. No history of bowel and bladder incontinence at the scene. No history of foaming from the mouth. It seems that she fell down somewhat. She had a similar episode in the past as well and she decided to come to the hospital for further evaluation. She stated that she had a similar episode many years ago and she was told that she did have a stroke at that point. PAST MEDICAL HISTORY Cardiac arrhythmias, hypertension, diabetes mellitus, DVT, on Eliquis. PERSONAL HISTORY: Denies smoking or alcohol use. ALLERGIES: NO KNOWN ALLERGIES. REVIEW OF SYSTEM: 12-point system being reviewed; from neuro, recurrent syncopal attack. MEDICATION: Colace, Cozaar, Eliquis, Norvasc, NovoLog, metoprolol and tramadol. PHYSICAL EXAMINATION: VITAL SIGNS: Blood pressure 129/57, mean artery pressure of 81, respiratory rate 18, temperature afebrile. NECK: Supple. No carotid bruits. HEART: Sounds regular. CHEST: Fair air entry. EXTREMITIES: No edema in legs. NEUROLOGIC EXAMINATION: Mental status examination: She is awake, alert and oriented to person, place and time. Significant retrograde amnesia. No antegrade amnesia noted. No confabulation. No sign of depression or suicidal ideation. Cranial nerve examination: Visual field intact. Pupils reactive to light. Extraocular movement decreased in all direction. No facial sensory deficit. No facial signs. Significant facial asymmetry manifesting as flattening of the left nasolabial fold. Hearing is normal. Tongue is midline. Good gag. Motor examination: Outstretched hand with eyes closed, no drift noted. No tremor on outstretched hand with eyes closed. She was able to lift both upper extremities against the gravity somewhat. She had limited ability on lifting her left leg to compare with the right leg against the gravity. Deep tendon reflexes absent throughout. Plantars are upgoing on her left side compared to the right side. Sensory examination: Responds to pain symmetrically on both sides. Significant sensory motor dysfunction due to her preexisting peripheral neuropathy related to her diabetes mellitus. Coordination: Finger-nose test is intact. Gait is deferred at this time. Examination of the spine: Significant tenderness over the lumbosacral area and coccygeal region due to the fall. CONCLUSION: On reviewing her history from her as well as the medical records, as per my neurological examination, the patient did have a recurrent episode of syncopal attack without any witness. From neurological point of view, nonconvulsive seizures should be ruled out. From cardiac point of view, cardiac arrhythmias should be ruled out. However, as both parts are ruled out, possible narcolepsy should be worked up; she needs polysomnogram and onset of sleep latency test that can be done as outpatient. Her workup; CT of the brain and MRI of the brain reviewed shows peripheral vascular disease manifesting with a small vessel disease. Carotid Doppler. No significant stenosis. CT of the lumbar spine showed a lumbosacral stenosis. EKG normal sinus rhythm. Blood workup: WBC 10, hemoglobin 13, hematocrit 39, platelet 188. Sodium 135, potassium 3.49, chloride 102, bicarbonate 28, BUN 14, creatinine 1.1, GFR 58, glucose 124. Troponin at 0.0120, homocysteine 11.4. Prolactin 9.6. RECOMMENDATION: Electroencephalogram should be done. That can be reviewed by me. The patient can continue the same management for her stroke prophylaxis as she has been getting it at present. Following discharge, the patient definitely needs sleep-related breathing disorders should be ruled out including narcolepsy. That can be done as outpatient. The patient's condition has been well discussed with her. She agreed with plan of management. Rocky Murray MD
--- NOTE | 2018-10-31 12:44 | VASCLAB ---
Date of service: 10/30/2018 PROCEDURE: Right Lower Extremity Venous Duplex Exam. HISTORY: Hx of phlebitis at the right lower extremity on Eliquis PRIORS: None. TECHNIQUE: Right common femoral, femoral, popliteal and posterior tibial, peroneal and great saphenous veins were evaluated. Flow was assessed with color Doppler, compressibility, assessment of phasic flow and augmentation response. Report prepared by RUT White FINDINGS: RIGHT: 1. Common Femoral Vein: 1.1. Compressibility - Fully compressible: Thrombus - None: Flow - Phasic: Augmentation -Normal: Reflux - None. 2. Femoral Vein: 2.1. Compressibility - Fully compressible: Thrombus - None: Flow - Phasic: Augmentation -Normal: Reflux - None. 3. Popliteal Vein: 3.1. Compressibility - Fully compressible: Thrombus - None: Flow - Phasic: Augmentation -Normal: Reflux - None. 4. Posterior Tibial Vein: 4.1. Compressibility - Fully compressible: Thrombus - None: Flow - Phasic: Augmentation -Normal: Reflux - None. 5. Peroneal Vein: 5.1. Compressibility - Fully compressible: Thrombus - None: Flow - Phasic: Augmentation -Normal: Reflux - None. 6. Great Saphenous Vein: 6.1. Compressibility - Fully compressible: Thrombus -None: Flow - Phasic: Augmentation - Normal: Reflux - None. OTHER FINDINGS: IMPRESSION: No evidence of deep or superficial vein thrombosis of the right lower extremity with excellent venous flow. Normal valve function noted of the right side.
== END 2018-10-30 15:45 | disposition home or self-care (01) | DRG 312 ==
LOC: C.ER 09:01 → C.9E 15:43 → C.5S 17:04 → C.6T 10-30 08:13 → C.5S 10-30 08:14
PROVIDERS: ADMIT Legal Medicine; ATTEND Legal Medicine
DX: R55 Syncope and collapse (principal); I69.354 Hemiplegia and hemiparesis following cerebral infarction affecting left non-dominant side; I80.3 Phlebitis and thrombophlebitis of lower extremities, unspecified; E11.65 Type 2 diabetes mellitus with hyperglycemia; E78.00 Pure hypercholesterolemia, unspecified; H40.9 Unspecified glaucoma; G47.419 Narcolepsy without cataplexy; M48.07 Spinal stenosis, lumbosacral region; Z79.4 Long term (current) use of insulin; I25.10 Atherosclerotic heart disease of native coronary artery without angina pectoris

== ENCOUNTER 2018-11-09 11:00 | Observation (INO) | payer MEDICARE ==
[2018-11-09 11:01] VITALS: BMI 25.7
[2018-11-09] MEDS ORDERED: Aspirin 325 mg EC Tablets PO STA (11:31)
--- NOTE | 2018-11-09 11:38 | C.PDOC ---
History Of Present Illness 78 year old female presents to the emergency department with complaints of left- sided chest pain/discomfort which began at 10AM today. Patient states that she feels lightheaded and doesn't "feel normal". Patient denies fever, cough. Time Seen by Provider: 11/09/18 11:10 Chief Complaint (Nursing): Weakness/Neurological Deficit History Per: Patient History/Exam Limitations: no limitations Onset/Duration Of Symptoms: Hrs Current Symptoms Are (Timing): Still Present Seizure Or Post-ictal Symptoms: None Fall Associated With With Symptoms: No Past Medical History Reviewed: Historical Data, Nursing Documentation, Vital Signs Vital Signs: Last Vital Signs Temp 97.9 F 11/09/18 11:08 Pulse 75 11/09/18 11:08 Resp 18 11/09/18 11:08 BP 157/70 H 11/09/18 11:08 Pulse Ox 100 11/09/18 11:08 - Medical History PMH: Cardia Arrhythmia (unknown type), HTN, Hypercholesterolemia, Peripheral Edema, TIA Denies: Arthritis, Crohn's Disease, Diverticulitis, Gastritis, Gall Bladder Disease, HIV, Chronic Kidney Disease Surgical History: Tonsillectomy Family History: States: No Known Family Hx - Social History Hx Alcohol Use: Yes Hx Substance Use: No (Rarely) - Immunization History Hx Tetanus Toxoid Vaccination: No Hx Influenza Vaccination: Yes (2018) Hx Pneumococcal Vaccination: No Review Of Systems Except As Marked, All Systems Reviewed And Found Negative. Constitutional: Negative for: Fever, Chills Cardiovascular: Positive for: Chest Pain Respiratory: Negative for: Cough, Shortness of Breath Gastrointestinal: Negative for: Nausea, Vomiting, Abdominal Pain, Diarrhea Physical Exam - Physical Exam Appears: Non-toxic, No Acute Distress, Other (generalized weakness) Skin: Normal Color, Warm, Dry Head: Atraumatic, Normacephalic Eye(s): bilateral: Normal Inspection, PERRL, EOMI Nose: Normal Oral Mucosa: Moist Neck: Normal, Supple Chest: Symmetrical, No Tenderness Cardiovascular: Rhythm Regular, No Murmur Respiratory: Normal Breath Sounds, No Rales, No Rhonchi, No Wheezing Gastrointestinal/Abdominal: Soft, No Tenderness, No Guarding, No Rebound Extremity: Normal ROM Neurological/Psych: Oriented x3, Normal Speech, Normal Cognition ED Course And Treatment - Laboratory Results Result Diagrams: 11/09/18 12:09 11/09/18 12:09 Interpretation Of ECG: Sinus arrhythmia at 76bpm, Q-wave and PVC. O2 Sat by Pulse Oximetry: 100 (RA) Pulse Ox Interpretation: Normal Medical Decision Making Medical Decision Making: Plan: EKG CMP Troponin CBC PTT Prothrombin Time CXR Glucose POC Ecotrin 325mg PO Urinalysis Patient accepted by Dr. Vigil to telemetry. Disposition Discussed With Dr.: Arabella Vigil Doctor Will See Patient In The: Hospital Counseled Patient/Family Regarding: Studies Performed, Diagnosis - Disposition Disposition: HOSPITALIZED Disposition Time: 14:03 Condition: STABLE - POA Core Measure Indicators: Chest Pain - Clinical Impression Clinical Impression: Chest pain, Near syncope - Scribe Statement The provider has reviewed the documentation as recorded by the Scribe (Ramos Brown) Provider Attestation: All medical record entries made by the Scribe were at my direction and personally dictated by me. I have reviewed the chart and agree that the record accurately reflects my personal performance of the history, physical exam, medical decision making, and the department course for this patient. I have also personally directed, reviewed, and agree with the discharge instructions and disposition.
[2018-11-09] MEDS ORDERED: Aspirin 325 mg EC Tablets PO ONE (12:15)
[2018-11-09 12:30] LABS: BASO # 0.1 K/uL (0.0-0.2); BASO % 0.9 % (0.0-2.0); EOS # 0.1 K/uL (0.0-0.7); EOS % 1.7 % (0.0-4.0); HEMOGLOBIN 12.7 g/dL (11.0-16.0); LYMPH # 2.3 K/uL (1.0-4.3); LYMPH % 27.3 % (20.0-40.0); MEAN CELL VOLUME 92.1 fL (81.0-99.0); MEAN CORPUSCULAR HEMOGLOBIN 31.3 pg (27.0-31.0); MEAN CORPUSCULAR HGB CONC 33.9 g/dL (33.0-37.0); MEAN PLATELET VOLUME 9.8 fL (7.2-11.7); MONO # 0.7 K/uL (0.0-0.8); MONO % 8.8 % (0.0-10.0); NEUT # 5.2 K/uL (1.8-7.0); NEUT % 61.3 % (50.0-75.0); NRBC % 0.1 % (0.0-2.0); RBC 4.06 Mil/uL (3.80-5.20); WHITE BLOOD COUNT 8.5 K/uL (4.8-10.8)
[2018-11-09 12:38] LABS: INR 1.1
--- NOTE | 2018-11-09 12:41 | RAD ---
Chest x-ray single frontal view HISTORY: Chest pain. Comparison: 10/28/2017 Findings: Mild venous congestion. Right hilar prominence. Upper lobe granulomatous changes. Tortuous aorta. Heart size within normal limits. Degenerative changes in the spine. Calcific tendinopathy of the left proximal humerus. Impression: Mild venous congestion. Right hilar prominence. Upper lobe granulomatous changes. Tortuous aorta. Heart size within normal limits. Degenerative changes in the spine. Calcific tendinopathy of the left proximal humerus.
[2018-11-09 12:59] LABS: ALB/GLOB RATIO 1.5 (1.0-2.1); ALBUMIN 4.3 g/dL (3.5-5.0); ALT/SGPT 12 U/L (9-52); AST/SGOT 36 U/L (14-36); BLOOD UREA NITROGEN 21 mg/dL (7-17); CALCIUM 9.6 mg/dl (8.6-10.4); GFR NON-AFRICAN AMERICAN 31
[2018-11-09 13:51] LABS: URINE BILIRUBIN NEGATIVE (NEGATIVE); URINE BLOOD NEGATIVE (NEGATIVE); URINE CLARITY Clear (Clear); URINE COLOR Yellow (YELLOW); URINE GLUCOSE (UA) NORMAL (Normal); URINE LEUKOCYTE ESTERASE 1+ Leu/uL (Negative); URINE PROTEIN NEGATIVE (NEGATIVE); URINE UROBILINOGEN NORMAL mg/dL (0.2-1.0)
--- NOTE | 2018-11-09 14:11 | CT ---
Date of service: 11/09/2018 PROCEDURE: CT HEAD WITHOUT CONTRAST. HISTORY: Dizziness. Headache. COMPARISON: 10/28/2018 TECHNIQUE: Axial computed tomography images were obtained through the head/brain without intravenous contrast. Radiation dose: Total exam DLP = 1092.57 mGy-cm. This CT exam was performed using one or more of the following dose reduction techniques: Automated exposure control, adjustment of the mA and/or kV according to patient size, and/or use of iterative reconstruction technique. FINDINGS: HEMORRHAGE: No intracranial hemorrhage. BRAIN: No mass effect or edema. Scattered focal lucencies in the subcortical and periventricular white matter suggestive for chronic microvascular ischemic change. Right basal ganglia calcification. Punctate right basal ganglia lacunar infarct. VENTRICLES: Unremarkable. No hydrocephalus. CALVARIUM: Unremarkable. Bony protuberance emanating off the right frontal cranium. PARANASAL SINUSES: Unremarkable as visualized. No significant inflammatory changes. MASTOID AIR CELLS: Unremarkable as visualized. No inflammatory changes. OTHER FINDINGS: None. IMPRESSION: No acute intracranial abnormality. Chronic microvascular ischemic changes. If symptoms persists, consider correlation with MRI.
--- NOTE | 2018-11-09 17:59 | CP.PCM.HP ---
History of Present Illness - History of Present Illness History of Present Illness: Admitted this 78 years old femle rom the ER because of feeling very weak, almost passing out. Patient is very shaky but no associated headaches, She however felt dizzy, no palpitations noted. She was just discharged from the hospital because of a syncopal episode, MRI, MRA of the head were negative. EEG was done which was negative, Carotid ultrasound was done which was negative. Serial ECG were done which was negative.Dr. Murray the neurologist was consulted and he saw the patient in the office once. Apparently he will see her again for a sleep apnea and EEG tests. Present on Admission - Present on Admission Any Indicators Present on Admission: Yes History of DVT/PE: Yes History of Uncontrolled Diabetes: Yes Urinary Catheter: No Decubitus Ulcer Present: No Past Patient History - Infectious Disease Hx of Infectious Diseases: None - Past Medical History & Family History Past Medical History?: Yes - Past Social History Smoking Status: Never Smoked Chewing Tobacco Use: No Cigar Use: No Alcohol: None Drugs: Denies Home Situation {Lives}: Alone - CARDIAC Hx Cardiac Disorders: Yes Hx Cardia Arrhythmia: Yes (unknown type) Hx Hypercholesterolemia: Yes Hx Hypertension: Yes Hx Peripheral Edema: Yes - PULMONARY Hx Respiratory Disorders: No - NEUROLOGICAL Hx Neurological Disorder: Yes Hx Syncope: Yes Hx Transient Ischemic Attacks (TIA): Yes - HEENT Hx HEENT Problems: Yes Hx Cataracts: Yes Hx Glaucoma: Yes 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 - RENAL Hx Chronic Kidney Disease: No - ENDOCRINE/METABOLIC Hx Endocrine Disorders: Yes Hx Diabetes Mellitus Type 2: Yes - HEMATOLOGICAL/ONCOLOGICAL Hx Blood Disorders: No Hx Human Immunodeficiency Virus (HIV): No - INTEGUMENTARY Hx Dermatological Problems: No - MUSCULOSKELETAL/RHEUMATOLOGICAL Hx Arthritis: No - GASTROINTESTINAL Hx Constipation: Yes Hx Crohn's Disease: No Hx Diverticulitis: No Hx Gall Bladder Disease: No Hx Gastritis: No - GENITOURINARY/GYNECOLOGICAL Hx Genitourinary Disorders: No - PSYCHIATRIC Hx Substance Use: No (Rarely) - SURGICAL HISTORY Hx Tonsillectomy: Yes - ANESTHESIA Hx Anesthesia: Yes Hx Anesthesia Reactions: No Hx Malignant Hyperthermia: No Meds Allergies/Adverse Reactions: Allergies Allergy/AdvReac Type Severity Reaction Status Date / Time codeine AdvReac DIZZINESS Verified 11/09/18 11:15 Physical Exam - Constitutional Appears: No Acute Distress - Head Exam Head Exam: ATRAUMATIC, NORMAL INSPECTION, NORMOCEPHALIC - Eye Exam Eye Exam: EOMI, PERRL Pupil Exam: PERRL - ENT Exam ENT Exam: Mucous Membranes Moist - Neck Exam Neck exam: Positive for: Full Rom, Normal Inspection - Respiratory Exam Respiratory Exam: Clear to Auscultation Bilateral, NORMAL BREATHING PATTERN - Cardiovascular Exam Cardiovascular Exam: REGULAR RHYTHM, +S1, +S2 - GI/Abdominal Exam GI & Abdominal Exam: Normal Bowel Sounds - Rectal Exam Rectal Exam: Deferred - Extremities Exam Extremities exam: Positive for: full ROM - Expanded Upper Extremities Exam Left Upper Arm exam: full ROM - Back Exam Back exam: NORMAL INSPECTION - Neurological Exam Neurological exam: Alert, Oriented x3, Reflexes Normal - Psychiatric Exam Psychiatric exam: Normal Mood - Skin Skin Exam: Intact, Normal Color, Warm Results - Vital Signs Recent Vital Signs: Last Vital Signs Temp 98 F 11/09/18 15:45 Pulse 71 11/09/18 15:45 Resp 18 11/09/18 15:45 BP 152/56 H 11/09/18 15:45 Pulse Ox 100 11/09/18 15:45 - Labs Result Diagrams: 11/09/18 12:09 11/09/18 12:09 Labs: Laboratory Results - last 24 hr 11/09/18 11/09/18 11/09/18 11:13 12:09 12:09 WBC 8.5 RBC 4.06 Hgb 12.7 Hct 37.4 MCV 92.1 MCH 31.3 H MCHC 33.9 RDW 13.0 Plt Count 220 MPV 9.8 Neut % (Auto) 61.3 Lymph % (Auto) 27.3 [place] % (Auto) 8.8 Eos % (Auto) 1.7 Baso % (Auto) 0.9 Neut # (Auto) 5.2 Lymph # (Auto) 2.3 [place] # (Auto) 0.7 Eos # (Auto) 0.1 Baso # (Auto) 0.1 PT 12.0 INR 1.1 APTT 30 Sodium Potassium Chloride Carbon Dioxide Anion Gap BUN Creatinine Est GFR ( Amer) Est GFR (Non-Af Amer) POC Glucose (mg/dL) 251 H Random Glucose Calcium Total Bilirubin AST ALT Alkaline Phosphatase Troponin I Total Protein Albumin Globulin Albumin/Globulin Ratio Urine Color Urine Clarity Urine pH Ur Specific [place] Urine Protein Urine Glucose (UA) Urine Ketones Urine Blood Urine Nitrate Urine Bilirubin Urine Urobilinogen Ur Leukocyte Esterase Urine WBC (Auto) Urine RBC (Auto) 11/09/18 11/09/18 12:09 13:12 WBC RBC Hgb Hct MCV MCH MCHC RDW Plt Count MPV Neut % (Auto) Lymph % (Auto) [place] % (Auto) Eos % (Auto) Baso % (Auto) Neut # (Auto) Lymph # (Auto) [place] # (Auto) Eos # (Auto) Baso # (Auto) PT INR APTT Sodium 137 Potassium 4.3 Chloride 106 Carbon Dioxide 21 L Anion Gap 14 BUN 21 H Creatinine 1.6 H Est GFR ( Amer) 38 Est GFR (Non-Af Amer) 31 POC Glucose (mg/dL) Random Glucose 240 H D Calcium 9.6 Total Bilirubin 0.6 AST 36 ALT 12 Alkaline Phosphatase 63 Troponin I < 0.0120 Total Protein 7.1 Albumin 4.3 Globulin 2.8 Albumin/Globulin Ratio 1.5 Urine Color Yellow Urine Clarity Clear Urine pH 6.0 Ur Specific [place] 1.009 Urine Protein Negative Urine Glucose (UA) Normal Urine Ketones Negative Urine Blood Negative Urine Nitrate Negative Urine Bilirubin Negative Urine Urobilinogen Normal Ur Leukocyte Esterase 1+ H Urine WBC (Auto) 5 Urine RBC (Auto) 1 Assessment & Plan (1) Type 2 diabetes mellitus with insulin therapy Status: Chronic (2) Near syncope Status: Acute (3) Constipation Status: Chronic (4) Hypertension Status: Chronic (5) CAD (coronary artery disease) Status: Chronic - Assessment and Plan (Free Text) Plan: Plan: Psychiatric consult, GI consult and cardiology consult. Telemetry Cat scan of [facility] for her chronic constipation.
[2018-11-09] MEDS ORDERED: POLYETHYLENE GLYCOL 3350 17 GM/Dose PACKET PO PRN (20:02)
[2018-11-09 20:12] LABS: CK-MB 0.87 ng/mL (0.0-3.38)
[2018-11-09] MEDS ORDERED: (Novolog Mix 70/30) Insulin Aspart/Insulin Aspar 100 units/ml SC SCH (22:00)
[2018-11-10 01:58] VITALS: RESP 20
[2018-11-10 02:12] LABS: CK-MB 0.75 ng/mL (0.0-3.38)
[2018-11-10] MEDS: (Novolog) Insulin Aspart, Recombinant 100 u/ml 10 ml vial SC SCH ×4 (08:30→22:12)
[2018-11-10] MEDS ORDERED: POLYETHYLENE GLYCOL 3350 17 GM/Dose PACKET PO ONE (08:30)
[2018-11-10] MEDS: Metoprolol Succinate 100 mg XL Tab PO SCH (09:42)
[2018-11-10] MEDS: Aspirin 325 mg EC Tablets PO SCH (09:42)
[2018-11-10] MEDS: Pantoprazole 40 mg EC Tab PO SCH (09:42)
--- NOTE | 2018-11-10 09:45 | CP.PCM.CON ---
History of Present Illness - History of Present Illness History of Present Illness: The pt is a 78 year old woman with a h/o DVT in 2017. The patient was drinking some water and had syncope two weeks ago, and work up here at the hospital was negative. pt has had constant dizziness since then, not vertigo, but not right in her head. It is constant. She never recovred since the syncope episode. pt was taking eliquis for two years, and advised to stop upon her last hospital admission. Pt taking asa. She also has HTN, mildly elevate cr of 1.6. pt had one minute of dull chest discomfort under her left breast at rest, improved by moving her arm above her head and stretching. No other chest pain reported, even with exertion. TNI is negative and ecg demonstrates nsr, Likely LAD, and occ pvcs. PVCs are well known to the patient and long standing. Review of Systems - Review of Systems All systems: reviewed and no additional remarkable complaints except (as above, left ankl hurts and is sore from her recent fall.) Past Patient History - Infectious Disease Hx of Infectious Diseases: None - Past Medical History & Family History Past Medical History?: Yes - Past Social History Smoking Status: Never Smoked Chewing Tobacco Use: No Cigar Use: No Alcohol: None Drugs: Denies Home Situation {Lives}: Alone - CARDIAC Hx Cardiac Disorders: Yes Hx Cardia Arrhythmia: Yes (unknown type) Hx Hypercholesterolemia: Yes Hx Hypertension: Yes Hx Peripheral Edema: Yes - PULMONARY Hx Respiratory Disorders: No - NEUROLOGICAL Hx Neurological Disorder: Yes Hx Syncope: Yes Hx Transient Ischemic Attacks (TIA): Yes - HEENT Hx HEENT Problems: Yes Hx Cataracts: Yes Hx Glaucoma: Yes 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 - RENAL Hx Chronic Kidney Disease: No - ENDOCRINE/METABOLIC Hx Endocrine Disorders: Yes Hx Diabetes Mellitus Type 2: Yes - HEMATOLOGICAL/ONCOLOGICAL Hx Blood Disorders: No Hx Human Immunodeficiency Virus (HIV): No - INTEGUMENTARY Hx Dermatological Problems: No - MUSCULOSKELETAL/RHEUMATOLOGICAL Hx Arthritis: No - GASTROINTESTINAL Hx Constipation: Yes Hx Crohn's Disease: No Hx Diverticulitis: No Hx Gall Bladder Disease: No Hx Gastritis: No - GENITOURINARY/GYNECOLOGICAL Hx Genitourinary Disorders: No - PSYCHIATRIC Hx Substance Use: No (Rarely) - SURGICAL HISTORY Hx Tonsillectomy: Yes - ANESTHESIA Hx Anesthesia: Yes Hx Anesthesia Reactions: No Hx Malignant Hyperthermia: No Meds Allergies/Adverse Reactions: Allergies Allergy/AdvReac Type Severity Reaction Status Date / Time codeine AdvReac DIZZINESS Verified 11/09/18 11:15 - Medications Medications: Current Medications Amlodipine Besylate (Norvasc) 5 mg PO BID [facility] Last Admin: 11/09/18 20:47 Dose: 5 mg Aspirin (Ecotrin) 325 mg PO DAILY [facility] Docusate Sodium (Colace) 100 mg PO BID [facility] Last Admin: 11/09/18 20:47 Dose: 100 mg Insulin Aspart (Novolog) 0 unit SC ACHS [facility]; Protocol Last Admin: 11/10/18 08:30 Dose: 1 units Losartan Potassium (Cozaar) 50 mg PO DAILY [facility] Metoprolol Succinate (Toprol Xl) 100 mg PO DAILY [facility] Pantoprazole Sodium (Protonix Ec Tab) 40 mg PO DAILY [facility] Polyethylene Glycol (Miralax) 17 gm PO HS PRN PRN Reason: Constipation Last Admin: 11/10/18 04:40 Dose: 17 gm Physical Exam - Constitutional Appears: Well - Head Exam Head Exam: ATRAUMATIC - Eye Exam Eye Exam: EOMI - ENT Exam ENT Exam: Mucous Membranes Moist - Neck Exam Neck exam: Positive for: Full Rom, Normal Inspection - Respiratory Exam Respiratory Exam: Clear to Auscultation Bilateral - Cardiovascular Exam Cardiovascular Exam: REGULAR RHYTHM - GI/Abdominal Exam GI & Abdominal Exam: Normal Bowel Sounds, Soft - Extremities Exam Extremities exam: Positive for: normal inspection - Back Exam Back exam: NORMAL INSPECTION - Neurological Exam Neurological exam: Alert, CN II-XII Intact, Oriented x3, Reflexes Normal - Psychiatric Exam Psychiatric exam: Normal Affect, Normal Mood - Skin Skin Exam: Normal Color Results - Vital Signs Recent Vital Signs: Last Vital Signs Temp 97.8 F 11/10/18 07:27 Pulse 78 11/10/18 07:27 Resp 20 11/10/18 07:27 BP 142/73 11/10/18 07:27 Pulse Ox 100 11/10/18 07:27 - Labs Result Diagrams: 11/09/18 12:09 11/09/18 12:09 Labs: Laboratory Results - last 24 hr 11/09/18 11/09/18 11/09/18 11:13 12:09 12:09 WBC 8.5 RBC 4.06 Hgb 12.7 Hct 37.4 MCV 92.1 MCH 31.3 H MCHC 33.9 RDW 13.0 Plt Count 220 MPV 9.8 Neut % (Auto) 61.3 Lymph % (Auto) 27.3 [place] % (Auto) 8.8 Eos % (Auto) 1.7 Baso % (Auto) 0.9 Neut # (Auto) 5.2 Lymph # (Auto) 2.3 [place] # (Auto) 0.7 Eos # (Auto) 0.1 Baso # (Auto) 0.1 PT 12.0 INR 1.1 APTT 30 Sodium Potassium Chloride Carbon Dioxide Anion Gap BUN Creatinine Est GFR ( Amer) Est GFR (Non-Af Amer) POC Glucose (mg/dL) 251 H Random Glucose Calcium Total Bilirubin AST ALT Alkaline Phosphatase Total Creatine Kinase CK-MB (Mass) Troponin I Total Protein Albumin Globulin Albumin/Globulin Ratio Free T4 TSH 3rd Generation Urine Color Urine Clarity Urine pH Ur Specific [place] Urine Protein Urine Glucose (UA) Urine Ketones Urine Blood Urine Nitrate Urine Bilirubin Urine Urobilinogen Ur Leukocyte Esterase Urine WBC (Auto) Urine RBC (Auto) 11/09/18 11/09/18 11/09/18 12:09 13:12 19:45 WBC RBC Hgb Hct MCV MCH MCHC RDW Plt Count MPV Neut % (Auto) Lymph % (Auto) [place] % (Auto) Eos % (Auto) Baso % (Auto) Neut # (Auto) Lymph # (Auto) [place] # (Auto) Eos # (Auto) Baso # (Auto) PT INR APTT Sodium 137 Potassium 4.3 Chloride 106 Carbon Dioxide 21 L Anion Gap 14 BUN 21 H Creatinine 1.6 H Est GFR ( Amer) 38 Est GFR (Non-Af Amer) 31 POC Glucose (mg/dL) Random Glucose 240 H D Calcium 9.6 Total Bilirubin 0.6 AST 36 ALT 12 Alkaline Phosphatase 63 Total Creatine Kinase 129 CK-MB (Mass) 0.87 Troponin I < 0.0120 < 0.0120 Total Protein 7.1 Albumin 4.3 Globulin 2.8 Albumin/Globulin Ratio 1.5 Free T4 TSH 3rd Generation Urine Color Yellow Urine Clarity Clear Urine pH 6.0 Ur Specific [place] 1.009 Urine Protein Negative Urine Glucose (UA) Normal Urine Ketones Negative Urine Blood Negative Urine Nitrate Negative Urine Bilirubin Negative Urine Urobilinogen Normal Ur Leukocyte Esterase 1+ H Urine WBC (Auto) 5 Urine RBC (Auto) 1 03/18/19 03/18/19 03/18/19 00:45 02:10 07:44 WBC RBC Hgb Hct MCV MCH MCHC RDW Plt Count MPV Neut % (Auto) Lymph % (Auto) [place] % (Auto) Eos % (Auto) Baso % (Auto) Neut # (Auto) Lymph # (Auto) [place] # (Auto) Eos # (Auto) Baso # (Auto) PT INR APTT Sodium Potassium Chloride Carbon Dioxide Anion Gap BUN Creatinine Est GFR ( Amer) Est GFR (Non-Af Amer) POC Glucose (mg/dL) Random Glucose Calcium Total Bilirubin AST ALT Alkaline Phosphatase Total Creatine Kinase 114 CK-MB (Mass) 0.75 Troponin I < 0.0120 Total Protein Albumin Globulin Albumin/Globulin Ratio Free T4 1.18 TSH 3rd Generation 1.56 Urine Color Urine Clarity Urine pH Ur Specific [place] Urine Protein Urine Glucose (UA) Urine Ketones Urine Blood Urine Nitrate Urine Bilirubin Urine Urobilinogen Ur Leukocyte Esterase Urine WBC (Auto) Urine RBC (Auto) - EKG Data EKG Interpreted by: Myself EKG shows normal: Sinus rhythm (as above. by me) Assessment & Plan - Assessment and Plan (Free Text) Assessment: 1. Non anginal chest pain at rest. Normal TNI, non ischemic ecg. 2. PVCs are chronic. No pauses seen on telemetry. 3. Dizziness and head fullness sensation are constant and not cardiac related. 4. Syncope: if no cause is found, and no arrhythmia is seen, an event loop ca be considered as outpatient.
--- NOTE | 2018-11-10 11:25 | CP.PCM.PN ---
Subjective - Date & Time of Evaluation Date of Evaluation: 11/10/18 Time of Evaluation: 11:14 - Subjective Subjective: Patient claims that at 4:00 AM today she felt woozy, Not dizziness but a feeling that something is at her head. Blood sugar was tested and it was not hypoglycemia. BP was 150. Chest X-ray showed central venous congestion, Cat scan of the head microvascular ischemic changes. MRI, MRA at her first admission were negative. Patient claims that the feeling at her head was not dizziness, but the feeling is her head is empty. Dr. Ricks saw the patient and he is of the opinion that it is non-cardiac in nature. But chest x-ray showed a central venous congestion there causing the patiient to be out of breath when she talks.Will order an ECHO, MRI of the IAC without contrast. Objective - Vital Signs/Intake and Output Vital Signs (last 24 hours): Temp Pulse Resp BP Pulse Ox 97.8 F 78 20 142/73 100 11/10/18 07:27 11/10/18 07:27 11/10/18 07:27 11/10/18 07:27 11/10/18 07:27 - Medications Medications: Current Medications Amlodipine Besylate (Norvasc) 5 mg PO BID [facility] Last Admin: 11/10/18 09:42 Dose: 5 mg Aspirin (Ecotrin) 325 mg PO DAILY [facility] Last Admin: 11/10/18 09:42 Dose: 325 mg Docusate Sodium (Colace) 100 mg PO BID [facility] Last Admin: 11/10/18 09:41 Dose: 100 mg Insulin Aspart (Novolog) 0 unit SC [facility]; Protocol Last Admin: 11/10/18 08:30 Dose: 1 units Losartan Potassium (Cozaar) 50 mg PO DAILY [facility] Last Admin: 11/10/18 09:42 Dose: 50 mg Metoprolol Succinate (Toprol Xl) 100 mg PO DAILY [facility] Last Admin: 11/10/18 09:42 Dose: 100 mg Pantoprazole Sodium (Protonix Ec Tab) 40 mg PO DAILY [facility] Last Admin: 11/10/18 09:42 Dose: 40 mg Polyethylene Glycol (Miralax) 17 gm PO HS PRN PRN Reason: Constipation Last Admin: 11/10/18 04:40 Dose: 17 gm - Labs Labs: 11/09/18 12:09 11/09/18 12:09 PT 12.0 SECONDS (9.7-12.2) 11/09/18 12:09 INR 1.1 11/09/18 12:09 APTT 30 SECONDS (21-34) 11/09/18 12:09 - Constitutional Appears: Non-toxic, No Acute Distress - Head Exam Head Exam: ATRAUMATIC, NORMAL INSPECTION, NORMOCEPHALIC - Eye Exam Eye Exam: EOMI, Normal appearance Pupil Exam: NORMAL ACCOMODATION, PERRL - ENT Exam ENT Exam: Mucous Membranes Moist - Neck Exam Neck Exam: Full ROM - Respiratory Exam Respiratory Exam: NORMAL BREATHING PATTERN - Cardiovascular Exam Cardiovascular Exam: REGULAR RHYTHM, +S1, +S2 - GI/Abdominal Exam GI & Abdominal Exam: Soft, Normal Bowel Sounds - Rectal Exam Rectal Exam: Deferred - Back Exam Back Exam: Full ROM, NORMAL INSPECTION - Neurological Exam Neurological Exam: Alert, Awake, CN II-XII Intact, Oriented x3, Reflexes Normal - Psychiatric Exam Psychiatric exam: Anxious - Skin Skin Exam: Intact, Normal Color, Warm Assessment and Plan (1) Type 2 diabetes mellitus with insulin therapy Status: Chronic (2) Near syncope Status: Acute (3) Constipation Status: Chronic (4) Hypertension Status: Chronic (5) CAD (coronary artery disease) Status: Chronic - Assessment and Plan (Free Text) Plan: Plan: Near syncope CAD\ NIDDM on Insulin
--- NOTE | 2018-11-10 11:56 | CP.PCM.CON ---
<Eveline Lopes - Last Filed: 11/10/18 11:51> History of Present Illness - History of Present Illness History of Present Illness: Gastroenterology Fellow/PGY6 Consult Note for Dr. Bass 78 year old female with PMH of Peptic ulcer disease (2012), Left lower extremity DVT 10/2017 (previously on Eliquis), HTN, Diabetes, HLD and chronic constipation presenting with lightheadedness and weakness. Recent discharge 10/30/18 after workup for syncopal episode with negative MRI/MRA had, carotid doppler, CT PE protocol and bilateral lower extremity ultrasound. Patient confirmed to have a nondisplaced sacrum/coccygeal junction fracture with and was switched from Eliquis to Aspirin. GI consultation for constipation. Patient follows with Dr. Bass in the office and notes she only takes Miralax Colace, and mineral oil three to four times a week instead of recommended daily regimen. Notes incomplet e evacuation, small caliber stools with straining every 2-4 days. Denies rectal pain/burning/itching, nausea, vomiting, hematemesis, abdominal pain, hematochezia, or melena. Admits to 5-6 glasses of water daily and 2-3 servings of fruits and vegetables daily. Endorses intentional ten pound weight loss due to healthier dietary habits. Admits to increased stress and loss of sleep after loss of daughter in July 2018. Prior colonoscopy within last 5-6 years endorsed to be normal. Family History- denies stomach cancer, colon cancer Social History- denies tobacco, alcohol, illicit drug use Surgical History- left retinal detachment intervention, tonsillectomy Review of Systems - Review of Systems Review of Systems: 12-point review of systems negative except for as above Past Patient History - Infectious Disease Hx of Infectious Diseases: None - Past Medical History & Family History Past Medical History?: Yes - Past Social History Smoking Status: Never Smoked Chewing Tobacco Use: No Cigar Use: No Alcohol: None Drugs: Denies Home Situation {Lives}: Alone - CARDIAC Hx Cardiac Disorders: Yes Hx Cardia Arrhythmia: Yes (unknown type) Hx Hypercholesterolemia: Yes Hx Hypertension: Yes Hx Peripheral Edema: Yes - PULMONARY Hx Respiratory Disorders: No - NEUROLOGICAL Hx Neurological Disorder: Yes Hx Syncope: Yes Hx Transient Ischemic Attacks (TIA): Yes - HEENT Hx HEENT Problems: Yes Hx Cataracts: Yes Hx Glaucoma: Yes 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 - RENAL Hx Chronic Kidney Disease: No - ENDOCRINE/METABOLIC Hx Endocrine Disorders: Yes Hx Diabetes Mellitus Type 2: Yes - HEMATOLOGICAL/ONCOLOGICAL Hx Blood Disorders: No Hx Human Immunodeficiency Virus (HIV): No - INTEGUMENTARY Hx Dermatological Problems: No - MUSCULOSKELETAL/RHEUMATOLOGICAL Hx Arthritis: No - GASTROINTESTINAL Hx Constipation: Yes Hx Crohn's Disease: No Hx Diverticulitis: No Hx Gall Bladder Disease: No Hx Gastritis: No - GENITOURINARY/GYNECOLOGICAL Hx Genitourinary Disorders: No - PSYCHIATRIC Hx Substance Use: No (Rarely) - SURGICAL HISTORY Hx Tonsillectomy: Yes - ANESTHESIA Hx Anesthesia: Yes Hx Anesthesia Reactions: No Hx Malignant Hyperthermia: No Meds Allergies/Adverse Reactions: Allergies Allergy/AdvReac Type Severity Reaction Status Date / Time codeine AdvReac DIZZINESS Verified 11/09/18 11:15 - Medications Medications: Current Medications Amlodipine Besylate (Norvasc) 5 mg PO BID [facility] Last Admin: 11/10/18 09:42 Dose: 5 mg Aspirin (Ecotrin) 325 mg PO DAILY [facility] Last Admin: 11/10/18 09:42 Dose: 325 mg Docusate Sodium (Colace) 100 mg PO BID [facility] Last Admin: 11/10/18 09:41 Dose: 100 mg Insulin Aspart (Novolog) 0 unit SC [facility]; Protocol Last Admin: 11/10/18 08:30 Dose: 1 units Losartan Potassium (Cozaar) 50 mg PO DAILY [facility] Last Admin: 11/10/18 09:42 Dose: 50 mg Metoprolol Succinate (Toprol Xl) 100 mg PO DAILY [facility] Last Admin: 11/10/18 09:42 Dose: 100 mg Pantoprazole Sodium (Protonix Ec Tab) 40 mg PO DAILY [facility] Last Admin: 11/10/18 09:42 Dose: 40 mg Polyethylene Glycol (Miralax) 17 gm PO HS PRN PRN Reason: Constipation Last Admin: 11/10/18 04:40 Dose: 17 gm Physical Exam - Constitutional Appears: Non-toxic, No Acute Distress - Head Exam Head Exam: ATRAUMATIC, NORMOCEPHALIC - Eye Exam Eye Exam: EOMI, PERRL. absent: Scleral icterus - ENT Exam ENT Exam: Mucous Membranes Moist, Normal Oropharynx - Neck Exam Neck exam: Positive for: Full Rom, Normal Inspection - Respiratory Exam Respiratory Exam: Clear to Auscultation Bilateral. absent: Rales, Rhonchi, Wheezes - Cardiovascular Exam Cardiovascular Exam: RRR, +S1, +S2. absent: Gallop, Rubs - GI/Abdominal Exam GI & Abdominal Exam: Normal Bowel Sounds, Soft. absent: Distended, Firm, Guarding, Organomegaly, Rebound, Rigid, Tenderness - Extremities Exam Extremities exam: Positive for: normal inspection. Negative for: pedal edema - Neurological Exam Neurological exam: Alert, Oriented x3 - Psychiatric Exam Psychiatric exam: Normal Affect, Normal Mood - Skin Skin Exam: Dry, Intact, Normal Color, Warm Results - Vital Signs Recent Vital Signs: Last Vital Signs Temp 97.8 F 11/10/18 07:27 Pulse 78 11/10/18 07:27 Resp 20 11/10/18 07:27 BP 142/73 11/10/18 07:27 Pulse Ox 100 11/10/18 07:27 - Labs Result Diagrams: 11/09/18 12:09 11/09/18 12:09 Labs: Laboratory Results - last 24 hr 11/09/18 11/09/18 11/09/18 12:09 12:09 12:09 WBC 8.5 RBC 4.06 Hgb 12.7 Hct 37.4 MCV 92.1 MCH 31.3 H MCHC 33.9 RDW 13.0 Plt Count 220 MPV 9.8 Neut % (Auto) 61.3 Lymph % (Auto) 27.3 [place] % (Auto) 8.8 Eos % (Auto) 1.7 Baso % (Auto) 0.9 Neut # (Auto) 5.2 Lymph # (Auto) 2.3 [place] # (Auto) 0.7 Eos # (Auto) 0.1 Baso # (Auto) 0.1 PT 12.0 INR 1.1 APTT 30 Sodium 137 Potassium 4.3 Chloride 106 Carbon Dioxide 21 L Anion Gap 14 BUN 21 H Creatinine 1.6 H Est GFR ( Amer) 38 Est GFR (Non-Af Amer) 31 POC Glucose (mg/dL) Random Glucose 240 H D Calcium 9.6 Total Bilirubin 0.6 AST 36 ALT 12 Alkaline Phosphatase 63 Total Creatine Kinase CK-MB (Mass) Troponin I < 0.0120 Total Protein 7.1 Albumin 4.3 Globulin 2.8 Albumin/Globulin Ratio 1.5 Free T4 TSH 3rd Generation Urine Color Urine Clarity Urine pH Ur Specific [place] Urine Protein Urine Glucose (UA) Urine Ketones Urine Blood Urine Nitrate Urine Bilirubin Urine Urobilinogen Ur Leukocyte Esterase Urine WBC (Auto) Urine RBC (Auto) 11/09/18 11/09/18 11/10/18 13:12 19:45 00:45 WBC RBC Hgb Hct MCV MCH MCHC RDW Plt Count MPV Neut % (Auto) Lymph % (Auto) [place] % (Auto) Eos % (Auto) Baso % (Auto) Neut # (Auto) Lymph # (Auto) [place] # (Auto) Eos # (Auto) Baso # (Auto) PT INR APTT Sodium Potassium Chloride Carbon Dioxide Anion Gap BUN Creatinine Est GFR ( Amer) Est GFR (Non-Af Amer) POC Glucose (mg/dL) Random Glucose Calcium Total Bilirubin AST ALT Alkaline Phosphatase Total Creatine Kinase 129 CK-MB (Mass) 0.87 Troponin I < 0.0120 Total Protein Albumin Globulin Albumin/Globulin Ratio Free T4 TSH 3rd Generation 1.56 Urine Color Yellow Urine Clarity Clear Urine pH 6.0 Ur Specific [place] 1.009 Urine Protein Negative Urine Glucose (UA) Normal Urine Ketones Negative Urine Blood Negative Urine Nitrate Negative Urine Bilirubin Negative Urine Urobilinogen Normal Ur Leukocyte Esterase 1+ H Urine WBC (Auto) 5 Urine RBC (Auto) 1 11/10/18 11/10/18 11/10/18 02:10 07:44 11:06 WBC RBC Hgb Hct MCV MCH MCHC RDW Plt Count MPV Neut % (Auto) Lymph % (Auto) [place] % (Auto) Eos % (Auto) Baso % (Auto) Neut # (Auto) Lymph # (Auto) [place] # (Auto) Eos # (Auto) Baso # (Auto) PT INR APTT Sodium Potassium Chloride Carbon Dioxide Anion Gap BUN Creatinine Est GFR ( Amer) Est GFR (Non-Af Amer) POC Glucose (mg/dL) 146 H Random Glucose Calcium Total Bilirubin AST ALT Alkaline Phosphatase Total Creatine Kinase 114 CK-MB (Mass) 0.75 Troponin I < 0.0120 Total Protein Albumin Globulin Albumin/Globulin Ratio Free T4 1.18 TSH 3rd Generation Urine Color Urine Clarity Urine pH Ur Specific [place] Urine Protein Urine Glucose (UA) Urine Ketones Urine Blood Urine Nitrate Urine Bilirubin Urine Urobilinogen Ur Leukocyte Esterase Urine WBC (Auto) Urine RBC (Auto) Assessment & Plan - Assessment and Plan (Free Text) Assessment: 78 year old female with PMH of Peptic ulcer disease (2012), Left lower extremity DVT 10/2017 (previously on Eliquis), HTN, Diabetes, HLD and chronic constipation presenting with lightheadedness and weakness. Recent discharge 10/30/18 for nondisplaced sacrum/coccygeal junction fracture secondary to syncopal episode with Eliquis stopped and switched to Aspirin. GI consultation for constipation. Prior colonoscopy within last 5-6 years endorsed to be normal. Plan: -pending CT A/P without contrast to rule out underlying pathology -prior CT A/P without contrast 10/2017 showed constipation -counselled on compliance to bowel regimen -ordered Miralax once this morning -continue Colace BID, mineral oil daily, and Miralax PRN as previously recommended in outpatient setting -will benefit from outpatient follow up as previously recommended for history of 4-5mm gallbladder polyps on ultrasound 02/2018 -will follow clinical course Case discussed with Dr. Bass <Bowen Bass - Last Filed: 11/10/18 19:40> Meds - Medications Medications: Current Medications Amlodipine Besylate (Norvasc) 5 mg PO BID [facility] Last Admin: 11/10/18 19:23 Dose: 5 mg Aspirin (Ecotrin) 325 mg PO DAILY [facility] Last Admin: 11/10/18 09:42 Dose: 325 mg Clonazepam (Klonopin) 0.5 mg PO HS [facility] Docusate Sodium (Colace) 100 mg PO BID [facility] Last Admin: 11/10/18 19:29 Dose: 100 mg Insulin Aspart (Novolog) 0 unit SC [facility]; Protocol Last Admin: 11/10/18 19:28 Dose: 1 units Losartan Potassium (Cozaar) 50 mg PO DAILY [facility] Last Admin: 11/10/18 09:42 Dose: 50 mg Metoprolol Succinate (Toprol Xl) 100 mg PO DAILY [facility] Last Admin: 11/10/18 09:42 Dose: 100 mg Mineral Oil (Mineral Oil 30ml) 30 ml PO DAILY [facility] Last Admin: 11/10/18 14:44 Dose: 30 ml Pantoprazole Sodium (Protonix Ec Tab) 40 mg PO DAILY [facility] Last Admin: 11/10/18 09:42 Dose: 40 mg Polyethylene Glycol (Miralax) 17 gm PO HS PRN PRN Reason: Constipation Last Admin: 11/10/18 04:40 Dose: 17 gm Results - Vital Signs Recent Vital Signs: Last Vital Signs Temp 98.4 F 11/10/18 15:07 Pulse 68 11/10/18 15:07 Resp 20 11/10/18 15:07 BP 146/70 11/10/18 15:07 Pulse Ox 100 11/10/18 15:07 - Labs Result Diagrams: 11/09/18 12:09 11/09/18 12:09 Labs: Laboratory Results - last 24 hr 11/09/18 11/09/18 11/09/18 16:59 19:45 21:20 POC Glucose (mg/dL) 172 H 155 H Total Creatine Kinase 129 CK-MB (Mass) 0.87 Troponin I < 0.0120 Free T4 TSH 3rd Generation 11/10/18 11/10/18 11/10/18 00:45 02:10 04:11 POC Glucose (mg/dL) 130 H Total Creatine Kinase 114 CK-MB (Mass) 0.75 Troponin I < 0.0120 Free T4 TSH 3rd Generation 1.56 11/10/18 11/10/18 11/10/18 06:33 07:44 11:06 POC Glucose (mg/dL) 179 H 146 H Total Creatine Kinase CK-MB (Mass) Troponin I Free T4 1.18 TSH 3rd Generation 11/10/18 17:05 POC Glucose (mg/dL) 182 H Total Creatine Kinase CK-MB (Mass) Troponin I Free T4 TSH 3rd Generation - Scribe Statement Provider Attestation: Patient known to me and non-compliant with recent bowel regimen. Has been on Linzess in the past but states it stopped working. Agree with supportive care and educated on proper bowel regimen including the need for multiple modalities (stool softener, fiber, lubricant and Miralax prn). Evaluate need for repeat colonoscopy but not at this current time. Syncopal workup in progress. CT scan showed no acute pathology in the abdomen and only excess stool. Will follow
--- NOTE | 2018-11-10 12:43 | CT ---
Date of service: 11/10/2018 PROCEDURE: CT Abdomen and Pelvis without intravenous contrast HISTORY: constipation COMPARISON: 11/12/2017 TECHNIQUE: Without contrast.. Contrast dose: 0 Radiation dose: Total exam DLP = 719.96 mGy-cm. This CT exam was performed using one or more of the following dose reduction techniques: Automated exposure control, adjustment of the mA and/or kV according to patient size, and/or use of iterative reconstruction technique. FINDINGS: LOWER THORAX: Vaguely linear band-like pleural based densities in right lower lobe unchanged from 11/12/2017, consistent with scar. No infiltrate/effusion at lung bases. Coronary arterial calcification is noted. There is a small hiatal hernia. LIVER: Unremarkable. No gross lesion or ductal dilatation. Elevated right hemidiaphragm, possibly due to diaphragmatic eventration though this is in no way certain on the basis of this examination. GALLBLADDER AND BILE DUCTS: Unremarkable. PANCREAS: Unremarkable. No gross lesion or ductal dilatation. SPLEEN: Unremarkable. ADRENALS: 12 mm left adrenal low-density mass unchanged from prior examination. This measures 10 Hounsfield units and is consistent with an adrenal adenoma. No further evaluation required. Normal right adrenal. Please note that the left adrenal gland show somewhat thickened limbs consistent with overall left adrenal hypertrophy in addition to this discrete mass. KIDNEYS AND URETERS: Unremarkable. No hydronephrosis. No solid mass. VASCULATURE: Unremarkable. No aortic aneurysm. There is atherosclerotic calcification of the abdominal aorta. BOWEL: Mild retained stool. No evidence of bowel obstruction. No evidence of fecal impaction. APPENDIX: Unremarkable. Normal appendix. PERITONEUM: Unremarkable. No free fluid. No free air. LYMPH NODES: Unremarkable. No enlarged lymph nodes. BLADDER: Suboptimally distended. Grossly unremarkable. REPRODUCTIVE: Status post hysterectomy BONES: No fracture. Grade 1 anterolisthesis at L4-5, likely degenerative. Severe degenerative disc disease at L4-5 with lesser degenerative disc disease at T11-12 and L5-S1. OTHER FINDINGS: None. IMPRESSION: Mild retained feces without evidence of bowel obstruction or fecal impaction. Minor findings as above.
--- NOTE | 2018-11-10 20:23 | CON ---
DATE: 11/10/2018 PSYCHIATRIC CONSULTATION CHIEF COMPLAINT AND REASON FOR CONSULTATION: The patient was referred by Dr. Vigil. The patient complained of insomnia, anxiety and has trouble sleeping. The patient also reports of behavioral problems during her sleep. HISTORY OF PRESENT ILLNESS: This is a case of 78-year-old female who is a patient of Dr. Vigil. The patient was admitted here for left-sided chest pain as well as near syncope. The patient has been worked up medically and seen by straddle truck driver and has been cleared by straddle truck driver. A CAT scan of the head and MRI done were all negative. The patient referred for co-management. The patient is complaining of anxiety and also some problems with her sleep. She says that she talks in her sleep as well as she is having some behavioral problems. She fell out of bed and has been restless in her sleep; according to her, her son videotaped her. The patient reports no prior history of this, but reports that she was a little stressed out over the of her daughter who from adrenal cancer in 07/2018. The patient was seen today. She reports that these episodes have been increasingly more and worried about it. She said she is getting anxious. She states that she is able to come to terms with the of her daughter, but stressed over these medical problems. PAST PSYCHIATRIC HISTORY: Denies any. PAST MEDICAL HISTORY: History of hypertension, diabetes, history of hypocholesteremia, history of near syncope, cardiac arrhythmia. SOCIAL HISTORY: Drinking alcohol, but no smoking. ALLERGIES: THE PATIENT IS ALLERGIC TO CODEINE. PSYCHOSOCIAL HISTORY: The patient lives alone. 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 CURRENT MEDICATIONS: Include Cozaar, Ecotrin, MiraLax, Norvasc, Protonix, Toprol. PHYSICAL EXAMINATION: VITAL SIGNS: Temperature 97.8, pulse 78, blood pressure 142/72, respirations 20, and oxygen saturation is 100%. REVIEW OF SYSTEMS: CONSTITUTIONAL: The patient is alert and oriented x3. She was seen earlier with Dr. Vigil. The patient reports she has trouble sleeping and has some behavioral problems during sleep. She gets anxious. SKIN: No diaphoresis. HEENT: No headache, but has periods of lightheadedness. NECK: Supple. RESPIRATORY: No dyspnea. CARDIOVASCULAR: No chest pain. GASTROINTESTINAL: No nausea, no vomiting. EXTREMITIES: Gait is unsteady. MUSCULOSKELETAL: feels weak. NEUROLOGIC: Alert and oriented x3. GENITOURINARY: No dysuria. MENTAL STATUS EXAMINATION: An elderly female, 5 feet 6 inches, weighs 155 pounds. Speech spontaneous. Affect is reactive. Mood is anxious and somatic. Thought process coherent. Thought content, the patient is distressed over her sleeping problems, especially behavioral problems. The patient also reports talking in her sleep. No psychosis. No suicidal or homicidal ideation. Attention and memory seem to be fair. Insight and judgment fair. Impulse control is fair. IMPRESSION: Anxiety disorder, not otherwise specified as well as to consider rapid eye movement behavioral problems. PLAN AND RECOMMENDATIONS: The patient is seen. Meds reviewed. Case discussed with Dr. Vigil. The patient is also made aware that she may benefit from taking clonazepam. She has agreed on a low dose to address her possible REM behavioral problems. Fall precaution. Continue treatment plan as outlined. Rayo Yates MD MTDMalcolm
[2018-11-11] MEDS: (Novolog) Insulin Aspart, Recombinant 100 u/ml 10 ml vial SC SCH ×4 (08:01→21:36)
--- NOTE | 2018-11-11 09:14 | CP.PCM.PN ---
<Eveline Lopes - Last Filed: 11/11/18 09:11> Subjective - Date & Time of Evaluation Date of Evaluation: 11/11/18 Time of Evaluation: 09:11 - Subjective Subjective: Gastroenterology Fellow/PGY6 Progress Note for Dr. Bass Patient denies abdominal pain. Tolerating regular diet. Continues to have flatulence. Denies bowel movement after receiving mineral oil, Colace, and Miralax yesterday. A 12-point review of systems negative except for as above. Objective - Vital Signs/Intake and Output Vital Signs (last 24 hours): Temp Pulse Resp BP Pulse Ox 97.5 F L 58 L 20 146/64 100 11/11/18 09:06 11/11/18 09:06 11/11/18 09:06 11/11/18 09:06 11/11/18 09:06 - Medications Medications: Current Medications Amlodipine Besylate (Norvasc) 5 mg PO BID [facility] Last Admin: 11/10/18 19:23 Dose: 5 mg Aspirin (Ecotrin) 325 mg PO DAILY [facility] Last Admin: 11/10/18 09:42 Dose: 325 mg Clonazepam (Klonopin) 0.5 mg PO HS [facility] Last Admin: 11/10/18 22:12 Dose: 0.5 mg Docusate Sodium (Colace) 100 mg PO BID [facility] Last Admin: 11/10/18 19:29 Dose: 100 mg Insulin Aspart (Novolog) 0 unit SC [facility]; Protocol Last Admin: 11/11/18 08:01 Dose: 1 units Losartan Potassium (Cozaar) 50 mg PO DAILY [facility] Last Admin: 11/10/18 09:42 Dose: 50 mg Metoprolol Succinate (Toprol Xl) 100 mg PO DAILY [facility] Last Admin: 11/10/18 09:42 Dose: 100 mg Mineral Oil (Mineral Oil 30ml) 30 ml PO DAILY [facility] Last Admin: 11/10/18 14:44 Dose: 30 ml Pantoprazole Sodium (Protonix Ec Tab) 40 mg PO DAILY [facility] Last Admin: 11/10/18 09:42 Dose: 40 mg Polyethylene Glycol (Miralax) 17 gm PO HS PRN PRN Reason: Constipation Last Admin: 11/10/18 04:40 Dose: 17 gm - Labs Labs: 11/09/18 12:09 11/09/18 12:09 PT 12.0 SECONDS (9.7-12.2) 11/09/18 12:09 INR 1.1 11/09/18 12:09 APTT 30 SECONDS (21-34) 11/09/18 12:09 - Constitutional Appears: Non-toxic, No Acute Distress - Head Exam Head Exam: ATRAUMATIC, NORMOCEPHALIC - Eye Exam Eye Exam: EOMI, PERRL. absent: Scleral icterus Pupil Exam: PERRL. absent: Miosis, Mydriatic - ENT Exam ENT Exam: Mucous Membranes Moist, Normal Oropharynx - Neck Exam Neck Exam: Full ROM, Normal Inspection - Respiratory Exam Respiratory Exam: Clear to Ausculation Bilateral. absent: Rales, Rhonchi, Wheezes - Cardiovascular Exam Cardiovascular Exam: RRR, +S1, +S2. absent: Gallop, Rubs - GI/Abdominal Exam GI & Abdominal Exam: Soft, Normal Bowel Sounds. absent: Distended, Firm, Guarding, Rigid, Tenderness, Organomegaly, Rebound - Extremities Exam Extremities Exam: Normal Inspection. absent: Pedal Edema - Neurological Exam Neurological Exam: Alert, Awake - Psychiatric Exam Psychiatric exam: Normal Affect, Normal Mood - Skin Skin Exam: Dry, Intact, Normal Color, Warm Assessment and Plan - Assessment and Plan (Free Text) Assessment: 78 year old female with PMH of Peptic ulcer disease (2012), Left lower extremity DVT 10/2017 (previously on Eliquis), HTN, Diabetes, HLD and chronic constipation presenting with lightheadedness and weakness. Recent discharge 10/30/18 for nondisplaced sacrum/coccygeal junction fracture secondary to syncopal episode with Eliquis stopped and switched to Aspirin. GI consultation for constipation in setting of noncompliance to outpatient bowel regimen. Prior colonoscopy within last 5-6 years endorsed to be normal. Plan: -CT A/P without contrast- no acute pathology, fecal retention -no bowel movement despite bowel regimen started yesterday- Colace, mineral oil, and Miralax -ordered for a fleets enema administration -counselled on increased water and fiber intake -will follow clinical course Case discussed with Dr. Bass <Bowen Bass - Last Filed: 11/11/18 11:45> Objective - Vital Signs/Intake and Output Vital Signs (last 24 hours): Temp Pulse Resp BP Pulse Ox 97.5 F L 58 L 20 146/64 100 11/11/18 09:06 11/11/18 09:06 11/11/18 09:06 11/11/18 09:06 11/11/18 09:06 - Medications Medications: Current Medications Amlodipine Besylate (Norvasc) 5 mg PO BID [facility] Last Admin: 11/11/18 09:59 Dose: 5 mg Aspirin (Ecotrin) 325 mg PO DAILY [facility] Last Admin: 11/11/18 09:59 Dose: 325 mg Clonazepam (Klonopin) 0.5 mg PO HS [facility] Last Admin: 11/10/18 22:12 Dose: 0.5 mg Docusate Sodium (Colace) 100 mg PO BID [facility] Last Admin: 11/11/18 09:59 Dose: 100 mg Insulin Aspart (Novolog) 0 unit SC [facility]; Protocol Last Admin: 11/11/18 08:01 Dose: 1 units Losartan Potassium (Cozaar) 50 mg PO DAILY [facility] Last Admin: 11/11/18 10:03 Dose: 50 mg Metoprolol Succinate (Toprol Xl) 100 mg PO DAILY [facility] Last Admin: 11/11/18 09:59 Dose: 100 mg Mineral Oil (Mineral Oil 30ml) 30 ml PO DAILY [facility] Last Admin: 11/11/18 10:03 Dose: 30 ml Pantoprazole Sodium (Protonix Ec Tab) 40 mg PO DAILY [facility] Last Admin: 11/11/18 09:59 Dose: 40 mg Polyethylene Glycol (Miralax) 17 gm PO HS PRN PRN Reason: Constipation Last Admin: 11/10/18 04:40 Dose: 17 gm - Labs Labs: 11/09/18 12:09 11/09/18 12:09 PT 12.0 SECONDS (9.7-12.2) 11/09/18 12:09 INR 1.1 11/09/18 12:09 APTT 30 SECONDS (21-34) 11/09/18 12:09 Attending/Attestation - Attestation I have personally seen and examined this patient.: Yes I have fully participated in the care of the patient.: Yes I have reviewed all pertinent clinical information, including history, physical exam and plan: Yes Notes (Text): 11/11/18 11:44 Still with constipation. No obstruction or mass on CT Scan Continue current management. Will give Fleets enema today and maintain previous plan. Observe.
[2018-11-11] MEDS ORDERED: Mineral Oil Enema 135 ml RC ONE (09:20)
[2018-11-11] MEDS: Metoprolol Succinate 100 mg XL Tab PO SCH (09:59)
[2018-11-11] MEDS: Aspirin 325 mg EC Tablets PO SCH (09:59)
[2018-11-11] MEDS: Pantoprazole 40 mg EC Tab PO SCH (09:59)
--- NOTE | 2018-11-11 10:51 | CP.PCM.PN ---
Subjective - Date & Time of Evaluation Date of Evaluation: 11/11/18 Time of Evaluation: 10:48 - Subjective Subjective: Afebrile. Patient seen and examined. On getting up she feels slightly woozy, but not dizzy. MRI of IAC one but no official report. Patient had ECHO done, no report either. For FPFT today. Will consBlood sugars had been good. BP had been good.ult ENT to maybe do a tilt test. Objective - Vital Signs/Intake and Output Vital Signs (last 24 hours): Temp Pulse Resp BP Pulse Ox 97.5 F L 58 L 20 146/64 100 11/11/18 09:06 11/11/18 09:06 11/11/18 09:06 11/11/18 09:06 11/11/18 09:06 - Medications Medications: Current Medications Amlodipine Besylate (Norvasc) 5 mg PO BID [facility] Last Admin: 11/11/18 09:59 Dose: 5 mg Aspirin (Ecotrin) 325 mg PO DAILY [facility] Last Admin: 11/11/18 09:59 Dose: 325 mg Clonazepam (Klonopin) 0.5 mg PO HS [facility] Last Admin: 11/10/18 22:12 Dose: 0.5 mg Docusate Sodium (Colace) 100 mg PO BID [facility] Last Admin: 11/11/18 09:59 Dose: 100 mg Insulin Aspart (Novolog) 0 unit SC [facility]; Protocol Last Admin: 11/11/18 08:01 Dose: 1 units Losartan Potassium (Cozaar) 50 mg PO DAILY [facility] Last Admin: 11/11/18 10:03 Dose: 50 mg Metoprolol Succinate (Toprol Xl) 100 mg PO DAILY [facility] Last Admin: 11/11/18 09:59 Dose: 100 mg Mineral Oil (Mineral Oil 30ml) 30 ml PO DAILY [facility] Last Admin: 11/11/18 10:03 Dose: 30 ml Pantoprazole Sodium (Protonix Ec Tab) 40 mg PO DAILY [facility] Last Admin: 11/11/18 09:59 Dose: 40 mg Polyethylene Glycol (Miralax) 17 gm PO HS PRN PRN Reason: Constipation Last Admin: 11/10/18 04:40 Dose: 17 gm - Labs Labs: 11/09/18 12:09 11/09/18 12:09 PT 12.0 SECONDS (9.7-12.2) 11/09/18 12:09 INR 1.1 11/09/18 12:09 APTT 30 SECONDS (21-34) 11/09/18 12:09 - Constitutional Appears: Well, Non-toxic, No Acute Distress - Head Exam Head Exam: ATRAUMATIC, NORMAL INSPECTION, NORMOCEPHALIC - Eye Exam Eye Exam: EOMI, Normal appearance, PERRL Pupil Exam: NORMAL ACCOMODATION - ENT Exam ENT Exam: Mucous Membranes Moist - Respiratory Exam Respiratory Exam: Clear to Ausculation Bilateral, NORMAL BREATHING PATTERN - Cardiovascular Exam Cardiovascular Exam: REGULAR RHYTHM, +S1, +S2 - GI/Abdominal Exam GI & Abdominal Exam: Soft - Rectal Exam Rectal Exam: Deferred - Extremities Exam Extremities Exam: Full ROM - Neurological Exam Neurological Exam: Alert, Awake, Oriented x3 Neuro motor strength exam: Left Upper Extremity: 5, Right Upper Extremity: 5, Le ft Lower Extremity: 5, Right Lower Extremity: 5 - Psychiatric Exam Psychiatric exam: Normal Affect - Skin Skin Exam: Intact, Normal Color Assessment and Plan (1) Type 2 diabetes mellitus with insulin therapy Status: Chronic (2) Near syncope Status: Acute (3) Constipation Status: Chronic (4) Hypertension Status: Chronic (5) CAD (coronary artery disease) Status: Chronic - Assessment and Plan (Free Text) Assessment: Assessment: Near syncope NIDDM on insulin HTN CAD Chronic constipation Hx of TIA Plan: Plan: ENT consult. Check results of FPFT, MRI of IAC, ECHO.
--- NOTE | 2018-11-11 11:23 | MRI ---
Date of service: 11/10/2018 PROCEDURE: MRI OF THE BRAIN AND INTERNAL AUDITORY CANALS WITHOUT CONTRAST. HISTORY: Near syncope COMPARISON: None available. TECHNIQUE: Multiplanar, multisequence MR images of the brain and posterior fossa were obtained without gadolinium contrast. High-resolution posterior fossa and images through the cerebellopontine angle and internal auditory canals included: Axial 3-D fiesta, axial T1 and coronal T1 weighted sequences. FINDINGS: IAC/CP ANGLE: INTERNAL AUDITORY CANAL: Unremarkable. CEREBELLOPONTINE ANGLE: Unremarkable. INNER EAR STRUCTURES: Unremarkable. Normally formed cochlea and semicircular canals. No signal abnormality in the membranous labyrinth of the cochlea, vestibule or the semicircular canals. BRAINSTEM: Grossly normal in appearance. MASTOIDS: There are trace mastoid effusions, worse on the left. BRAIN: HEMORRHAGE:: None DWI: No evidence of an acute or early subacute infarction. BRAIN (LIMITED): There is no mass, mass effect or abnormal extra-axial fluid collection. There is no territorial infarction. The midline sagittal structures are normal. The ventricles are normal in size, shape and configuration. There are normal signal voids in the larger intracranial arteries. PARANASAL SINUSES: Clear OTHER FINDINGS: None . IMPRESSION: 1. Limited MRI of the IAC and cerebellopontine angles due to lack of gadolinium enhancement. No gross lesion or other abnormality identified. If symptoms persist and if clinically indicated, contrast-enhanced MRI of the internal auditory canals may be performed. 2. Unremarkable non-contrast MRI of brain. A preliminary report was provided by [facility]. A preliminary report was provided by [facility].
--- NOTE | 2018-11-11 12:02 | PN ---
DATE: 11/11/2018 SUBJECTIVE: The patient is seen. The patient states that she did not sleep well last night but no behavioral problems noted by staff. She said that she woke up with sitting on a bed juárez. Other than that, the patient was started with Klonopin. Today, she is alert and verbal. No sedation. REVIEW OF SYSTEMS: She is alert and oriented x3, seen in room, trying to eat her breakfast. PHYSICAL EXAMINATION: VITAL SIGNS: Temperature is 97.5, pulse 58, blood pressure 146/64, respirations 20, oxygen saturation is 100%. GENERAL: The patient has no behavioral problems. SKIN: No diaphoresis. HEENT: No headache. No dizziness. NECK: Supple. RESPIRATORY: No dyspnea. CARDIOVASCULAR: No chest pain. GASTROINTESTINAL: No nausea. No vomiting. EXTREMITIES: Moving extremities. Gait is unsteady at times. NEUROLOGIC: Alert and oriented x3. GENITOURINARY: No urinary problems. MENTAL STATUS EXAMINATION: An elderly female who looks stated age. Alert and oriented x3. Mood is calm. Affect is reactive. Speech is spontaneous. Thought process is coherent. Thought content, the patient advised to have sleep study as an outpatient. If the patient has RBD, which is REM behavioral disorder, the patient is at risk for Parkinson's in the later years. No psychosis. No suicidal or homicidal ideation. Attention and memory seemed to be fair. Insight and judgment fair. Impulse control is fair. IMPRESSION: Anxiety disorder, not otherwise specified as well as to rule out REM sleep behavior disorder, PLAN AND RECOMMENDATIONS: The patient is seen, medications reviewed. We will continue the Klonopin 0.5 mg at bedtime. Continue treatment plan as outlined. As advised, the patient is advised to have a sleep study as an outpatient. Rayo Yates MD [facility]
[2018-11-11 14:01] LABS: BASO # 0.1 K/uL (0.0-0.2); BASO % 0.8 % (0.0-2.0); EOS # 0.2 K/uL (0.0-0.7); EOS % 2.4 % (0.0-4.0); HEMOGLOBIN 12.6 g/dL (11.0-16.0); LYMPH # 1.8 K/uL (1.0-4.3); LYMPH % 21.3 % (20.0-40.0); MEAN CORPUSCULAR HGB CONC 33.7 g/dL (33.0-37.0); MEAN PLATELET VOLUME 9.4 fL (7.2-11.7); MONO # 0.7 K/uL (0.0-0.8); MONO % 8.5 % (0.0-10.0); NEUT # 5.6 K/uL (1.8-7.0); RBC 4.05 Mil/uL (3.80-5.20); RED CELL DISTRIBUTION WIDTH 12.7 % (11.5-14.5); WHITE BLOOD COUNT 8.4 K/uL (4.8-10.8)
[2018-11-11 14:34] LABS: ALB/GLOB RATIO 1.3 (1.0-2.1); CALCIUM 9.4 mg/dl (8.6-10.4)
--- NOTE | 2018-11-11 15:13 | CON ---
DATE: 11/11/2018 REASON FOR CONSULTATION: Dizziness. HISTORY OF PRESENT ILLNESS: This is a 78-year-old female with a 3-week history of dizziness lasting 30 minutes, on and off, moderate in intensity. The dizziness is described as lightheadedness. There is no vertigo. No hearing loss. No ringing in the ears. PAST MEDICAL HISTORY: As noted in the chart by me. MEDICATIONS: As noted in the chart by me. ALLERGIES: NOTED IN THE CHART BY ME. PHYSICAL EXAMINATION: HEAD: Atraumatic, normocephalic. FACE: Good facial movements bilaterally. CONSTITUTIONAL: Well fed, well nourished. COMMUNICATION: Communicates well and appropriately. EXTERNAL NOSE AND EARS: No masses. No lesions. No erythema. No edema. INTERNAL NOSE: Deviated septum. No masses. No lesions. No erythema. No edema. ORAL CAVITY AND OROPHARYNX: No masses. No lesions. No erythema. No edema. LIPS AND GUMS: No masses. No lesions. No erythema. No edema. NECK: Supple. THYROID: No thyromegaly. No goiter. LYMPH NODES: No lymphadenopathy of the neck. ASSESSMENT: 1. Dizziness. 2. Deviated septum. PLAN: This is unlikely to be coming from the ears. Once cleared by Neurology, the patient can ambulate properly and MRI is normal, the patient should go home and follow up for VNG as an outpatient; however, dizziness is unlikely to be from the ear. Leighton Silveira MD
--- NOTE | 2018-11-11 23:11 | CARD ---
APPROVED REPORT Date of service: 11/11/2018 EXAM: Two-dimensional and M-mode echocardiogram with Doppler and color Doppler. Other Information Quality : GoodRhythm : INDICATION Dyspnea Peripheral Edema Cardiac Disease: CAD RISK FACTORS Hypertension Hyperlipidemia Diabetes 2D DIMENSIONS IVSd0.7 (0.7-1.1cm)LVDd4.5 (3.9-5.9cm) PWd0.8 (0.7-1.1cm)LA Jrlojo62 (18-58mL) LVDs2.7 (2.5-4.0cm)FS (%) 40.9 % LVEF (%)71.8 (>50%)LVEF (Riggins's)74.62 % IVC0.00 cm M-Mode DIMENSIONS Left Atrium (MM)3.63 (2.5-4.0cm)IVSd1.13 (0.7-1.1cm) Aortic Root2.57 (2.2-3.7cm)LVDd4.17 (4.0-5.6cm) Aortic Cusp Exc.1.90 (1.5-2.0cm)PWd0.87 (0.7-1.1cm) FS (%) 47 %LVDs2.23 (2.0-3.8cm) LVEF (%)78 (>50%) Mitral Valve MV E Zeopswcd90.5cm/sMV A Nowcdoxe236.1cm/sE/A ratio0.7 TDI Lateral E' Peak V9.13cm/sMedial E' Peak V6.87cm/sE/Lateral E'9.4 E/Medial E'12.4 Tricuspid Valve TR Peak [id number]/sTR Peak Gr.[id number] LEFT VENTRICLE The left ventricle is normal size. There is normal left ventricular wall thickness. The left ventricular function is normal. The left ventricular ejection fraction is within the normal range. There is normal LV segmental wall motion. Transmitral Doppler flow pattern is abnormal. RIGHT VENTRICLE The right ventricle is normal size. ATRIA The left atrium size is normal. The right atrium size is normal. AORTIC VALVE The aortic valve is thickened but opens well. MITRAL VALVE The mitral valve is thickened but opens well. Mitral regurgitation is trace. TRICUSPID VALVE There is mild tricuspid regurgitation. <Conclusion> Normal LV systolic function. Diastolic dysfunction. Thickened Mitrala and Aortic vlve. Trace MR. Mild TR.
--- NOTE | 2018-11-12 07:36 | CP.PCM.PN ---
<Eveline Lopes - Last Filed: 11/12/18 09:59> Subjective - Date & Time of Evaluation Date of Evaluation: 11/12/18 Time of Evaluation: 07:34 - Subjective Subjective: Gastroenterology Fellow/PGY6 Progress Note for Dr. Bass Patient denies abdominal pain. Tolerating regular diet. Notes two large bowel movements after enema yesterday. A 12-point review of systems negative except for as above. Objective - Vital Signs/Intake and Output Vital Signs (last 24 hours): Temp Pulse Resp BP Pulse Ox 97.7 F 53 L 20 147/67 98 11/11/18 23:45 11/12/18 01:07 11/11/18 23:45 11/11/18 23:45 11/11/18 23:45 - Medications Medications: Current Medications Amlodipine Besylate (Norvasc) 5 mg PO BID [facility] Last Admin: 11/11/18 17:27 Dose: 5 mg Aspirin (Ecotrin) 325 mg PO DAILY [facility] Last Admin: 11/11/18 09:59 Dose: 325 mg Clonazepam (Klonopin) 0.5 mg PO HS [facility] Last Admin: 11/11/18 21:59 Dose: 0.5 mg Docusate Sodium (Colace) 100 mg PO BID [facility] Last Admin: 11/11/18 17:28 Dose: Not Given Insulin Aspart (Novolog) 0 unit SC [facility]; Protocol Last Admin: 11/11/18 21:36 Dose: Not Given Losartan Potassium (Cozaar) 50 mg PO DAILY [facility] Last Admin: 11/11/18 10:03 Dose: 50 mg Metoprolol Succinate (Toprol Xl) 100 mg PO DAILY [facility] Last Admin: 11/11/18 09:59 Dose: 100 mg Mineral Oil (Mineral Oil 30ml) 30 ml PO DAILY [facility] Last Admin: 11/11/18 10:03 Dose: 30 ml Pantoprazole Sodium (Protonix Ec Tab) 40 mg PO DAILY [facility] Last Admin: 11/11/18 09:59 Dose: 40 mg Polyethylene Glycol (Miralax) 17 gm PO HS PRN PRN Reason: Constipation Last Admin: 11/10/18 04:40 Dose: 17 gm - Labs Labs: 11/11/18 13:51 11/11/18 13:51 PT 12.0 SECONDS (9.7-12.2) 11/09/18 12:09 INR 1.1 11/09/18 12:09 APTT 30 SECONDS (21-34) 11/09/18 12:09 - Constitutional Appears: Non-toxic, No Acute Distress - Head Exam Head Exam: ATRAUMATIC, NORMOCEPHALIC - Eye Exam Eye Exam: EOMI, PERRL. absent: Scleral icterus Pupil Exam: PERRL. absent: Miosis, Mydriatic - ENT Exam ENT Exam: Mucous Membranes Moist, Normal Oropharynx - Neck Exam Neck Exam: Full ROM, Normal Inspection - Respiratory Exam Respiratory Exam: Clear to Ausculation Bilateral. absent: Rales, Rhonchi, Wheezes - Cardiovascular Exam Cardiovascular Exam: RRR, +S1, +S2. absent: Gallop, Rubs - GI/Abdominal Exam GI & Abdominal Exam: Soft, Normal Bowel Sounds. absent: Distended, Firm, Guarding, Rigid, Tenderness, Organomegaly, Rebound - Extremities Exam Extremities Exam: Full ROM, Normal Inspection. absent: Pedal Edema - Neurological Exam Neurological Exam: Alert, Awake - Psychiatric Exam Psychiatric exam: Normal Affect, Normal Mood - Skin Skin Exam: Dry, Intact, Normal Color, Warm Assessment and Plan - Assessment and Plan (Free Text) Assessment: 78 year old female with PMH of Peptic ulcer disease (2012), Left lower extremity DVT 10/2017 (previously on Eliquis), HTN, Diabetes, HLD and chronic constipation presenting with lightheadedness and weakness. Recent discharge 10/30/18 for nondisplaced sacrum/coccygeal junction fracture secondary to syncopal episode with Eliquis stopped and switched to Aspirin. GI consultation for constipation in setting of noncompliance to outpatient bowel regimen. Prior colonoscopy within last 5-6 years endorsed to be normal. Plan: -counselled on compliance to bowel regimen -continue Colace, mineral oil, and Miralax -counselled on increased water and fiber intake -follow up outpatient with Dr. Bass for continued management of constipation -Please contact with any questions or concerns Case discussed with Dr. Bass <Bowen Bass - Last Filed: 11/12/18 10:14> Objective - Vital Signs/Intake and Output Vital Signs (last 24 hours): Temp Pulse Resp BP Pulse Ox 97.7 F 62 20 132/69 100 11/12/18 08:30 11/12/18 08:30 11/12/18 08:30 11/12/18 08:30 11/12/18 08:30 - Medications Medications: Current Medications Amlodipine Besylate (Norvasc) 5 mg PO BID [facility] Last Admin: 11/12/18 09:55 Dose: 5 mg Aspirin (Ecotrin) 325 mg PO DAILY [facility] Last Admin: 11/12/18 09:55 Dose: 325 mg Clonazepam (Klonopin) 0.5 mg PO HS [facility] Last Admin: 11/11/18 21:59 Dose: 0.5 mg Docusate Sodium (Colace) 100 mg PO BID [facility] Last Admin: 11/12/18 09:55 Dose: 100 mg Insulin Aspart (Novolog) 0 unit SC [facility]; Protocol Last Admin: 11/12/18 07:55 Dose: Not Given Losartan Potassium (Cozaar) 50 mg PO DAILY [facility] Last Admin: 11/11/18 10:03 Dose: 50 mg Metoprolol Succinate (Toprol Xl) 100 mg PO DAILY [facility] Last Admin: 11/12/18 09:55 Dose: 100 mg Mineral Oil (Mineral Oil 30ml) 30 ml PO DAILY [facility] Last Admin: 11/11/18 10:03 Dose: 30 ml Pantoprazole Sodium (Protonix Ec Tab) 40 mg PO DAILY [facility] Last Admin: 11/12/18 09:55 Dose: 40 mg Polyethylene Glycol (Miralax) 17 gm PO HS PRN PRN Reason: Constipation Last Admin: 11/10/18 04:40 Dose: 17 gm - Labs Labs: 11/11/18 13:51 11/11/18 13:51 PT 12.0 SECONDS (9.7-12.2) 11/09/18 12:09 INR 1.1 11/09/18 12:09 APTT 30 SECONDS (21-34) 11/09/18 12:09 Attending/Attestation - Attestation I have personally seen and examined this patient.: Yes I have fully participated in the care of the patient.: Yes I have reviewed all pertinent clinical information, including history, physical exam and plan: Yes Notes (Text): 11/12/18 10:12 Patient appears to be doing well. Had several bowel movements following enema therapy Advised on importance of continueing bowel regimen upon discharge. Advised that syncopal/PHOTOGR[employer]IC PLATE [employer] episodes are not likely to be related to her bowel issues in the absence of vaso-vagal straining. Can see as outpatient in couple of weeks or sooner if needed. Will follow as needed.
[2018-11-12] MEDS: (Novolog) Insulin Aspart, Recombinant 100 u/ml 10 ml vial SC SCH ×4 (07:55→22:02)
[2018-11-12 08:32] VITALS: O2SAT 100
[2018-11-12] MEDS: Aspirin 325 mg EC Tablets PO SCH (09:55)
[2018-11-12] MEDS: Metoprolol Succinate 100 mg XL Tab PO SCH (09:55)
[2018-11-12] MEDS: Pantoprazole 40 mg EC Tab PO SCH (09:55)
--- NOTE | 2018-11-12 11:01 | CP.PCM.PN ---
Subjective - Date & Time of Evaluation Date of Evaluation: 11/12/18 Time of Evaluation: 10:57 - Subjective Subjective: Patient seen and examined. Claims she feels better. Less wooziness. Sleeping better. IAC MRI negative. Echo done LVEF 78%. FPFT test not done . Will be done today. BUN is better. Crea-1.3. . Sleep apnea test to be done as an outpatient. Objective - Vital Signs/Intake and Output Vital Signs (last 24 hours): Temp Pulse Resp BP Pulse Ox 97.7 F 62 20 132/69 100 11/12/18 08:30 11/12/18 08:30 11/12/18 08:30 11/12/18 08:30 11/12/18 08:30 - Medications Medications: Current Medications Amlodipine Besylate (Norvasc) 5 mg PO BID [facility] Last Admin: 11/12/18 09:55 Dose: 5 mg Aspirin (Ecotrin) 325 mg PO DAILY [facility] Last Admin: 11/12/18 09:55 Dose: 325 mg Clonazepam (Klonopin) 0.5 mg PO HS [facility] Last Admin: 11/11/18 21:59 Dose: 0.5 mg Docusate Sodium (Colace) 100 mg PO BID [facility] Last Admin: 11/12/18 09:55 Dose: 100 mg Insulin Aspart (Novolog) 0 unit SC [facility]; Protocol Last Admin: 11/12/18 07:55 Dose: Not Given Losartan Potassium (Cozaar) 50 mg PO DAILY [facility] Last Admin: 11/11/18 10:03 Dose: 50 mg Metoprolol Succinate (Toprol Xl) 100 mg PO DAILY [facility] Last Admin: 11/12/18 09:55 Dose: 100 mg Mineral Oil (Mineral Oil 30ml) 30 ml PO DAILY [facility] Last Admin: 11/11/18 10:03 Dose: 30 ml Pantoprazole Sodium (Protonix Ec Tab) 40 mg PO DAILY [facility] Last Admin: 11/12/18 09:55 Dose: 40 mg Polyethylene Glycol (Miralax) 17 gm PO HS PRN PRN Reason: Constipation Last Admin: 11/10/18 04:40 Dose: 17 gm - Labs Labs: 11/11/18 13:51 11/11/18 13:51 PT 12.0 SECONDS (9.7-12.2) 11/09/18 12:09 INR 1.1 11/09/18 12:09 APTT 30 SECONDS (21-34) 11/09/18 12:09 - Constitutional Appears: Well, Non-toxic, No Acute Distress - Head Exam Head Exam: ATRAUMATIC, NORMOCEPHALIC - Eye Exam Eye Exam: EOMI, Normal appearance Pupil Exam: PERRL - ENT Exam ENT Exam: Mucous Membranes Moist - Neck Exam Neck Exam: Full ROM, Normal Inspection - Respiratory Exam Respiratory Exam: Clear to Ausculation Bilateral, NORMAL BREATHING PATTERN - Cardiovascular Exam Cardiovascular Exam: REGULAR RHYTHM, +S1, +S2 - GI/Abdominal Exam GI & Abdominal Exam: Soft, Normal Bowel Sounds - Rectal Exam Rectal Exam: Deferred - Extremities Exam Extremities Exam: Full ROM, Normal Inspection - Back Exam Back Exam: Full ROM, NORMAL INSPECTION - Neurological Exam Neurological Exam: Alert, Awake, Oriented x3 Neuro motor strength exam: Left Upper Extremity: 5, Right Upper Extremity: 5, Left Lower Extremity: 5, Right Lower Extremity: 5 - Psychiatric Exam Psychiatric exam: Normal Affect - Skin Skin Exam: Intact, Normal Color Assessment and Plan (1) Type 2 diabetes mellitus with insulin therapy Status: Chronic (2) Near syncope Status: Acute (3) Constipation Status: Chronic (4) Hypertension Status: Chronic (5) CAD (coronary artery disease) Status: Chronic - Assessment and Plan (Free Text) Assessment: Assessment: Near syncope NIDDM on Insulin CAD HTN Sleeping disorder. History of TIA. Plan: Plan: To get FPFT as ordered. All test are negative and patient will feel better will discharge in AM
--- NOTE | 2018-11-12 17:30 | PN ---
DATE: 11/12/2018 SUBJECTIVE: The patient is seen. Case discussed with Dr. Vigil. The patient is currently on Klonopin 0.5 mg at bedtime, and she slept better last night. The patient gave verbal permission to discuss her case with her son, Rafy, as the patient's son is taking care of her. The patient wants to live alone, but the patient was advised that she needs to go for sleep studies as outpatient as the patient may have RBD, which is REM Behavior Disorder, and the patient is at risk for developing Parkinson's in the later years. The patient has agreed to go for sleep study. The patient had an eventful night. No behavioral problems noted by staff. REVIEW OF SYSTEMS: The patient is alert and oriented x3, seen in her room with Dr. Vigil. PHYSICAL EXAMINATION: VITAL SIGNS: Temperature is 97.7, pulse 62, blood pressure 132/69, respirations 20, oxygen saturation is 100%. GENERAL: Very pleasant, not in acute respiratory distress. SKIN: No pruritus. HEENT: No headache. No dizziness. NECK: Supple. RESPIRATORY: No dyspnea. CARDIOVASCULAR: No chest pain. GASTROINTESTINAL: She is eating well. GENITOURINARY: No dysuria. EXTREMITIES: Ambulatory. NEUROLOGIC: Alert and oriented x3. No recurrence of syncope. MENTAL STATUS EXAMINATION: An elderly female, who looks stated age. Alert and oriented x3. Very pleasant. Mood is calm. Affect is reactive. Speech is spontaneous. Thought process is coherent. Thought content, no overt psychosis. No suicidal or homicidal ideation. Attention and memory seemed to be fair. Insight and judgment fair. Impulse control is fair. 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 PLAN AND RECOMMENDATIONS: The patient is seen, meds reviewed. Continue treatment plan and discussed with Dr. Vigil. The patient may benefit from sleep study as an outpatient to rule out REM. Rayo Yates MD
--- NOTE | 2018-11-13 08:26 | CP.PCM.PN ---
<Eveline Lopes - Last Filed: 11/13/18 08:23> Subjective - Date & Time of Evaluation Date of Evaluation: 11/13/18 Time of Evaluation: 08:23 - Subjective Subjective: Gastroenterology Fellow/PGY6 Progress Note for Dr. Bass Patient feels well. Admits to two formed stools yesterday. Denies abdominal pain. A 12-point review of systems negative except for as above. Objective - Vital Signs/Intake and Output Vital Signs (last 24 hours): Temp Pulse Resp BP Pulse Ox 97.4 F L 57 L 20 146/72 100 11/13/18 00:06 11/13/18 03:58 11/13/18 00:06 11/13/18 00:06 11/13/18 00:06 - Medications Medications: Current Medications Amlodipine Besylate (Norvasc) 5 mg PO BID [facility] Last Admin: 11/12/18 18:03 Dose: 5 mg Aspirin (Ecotrin) 325 mg PO DAILY [facility] Last Admin: 11/12/18 09:55 Dose: 325 mg Clonazepam (Klonopin) 0.5 mg PO HS [facility] Last Admin: 11/12/18 22:03 Dose: 0.5 mg Docusate Sodium (Colace) 100 mg PO BID [facility] Last Admin: 11/12/18 18:03 Dose: 100 mg Insulin Aspart (Novolog) 0 unit SC [facility]; Protocol Last Admin: 11/12/18 22:02 Dose: Not Given Losartan Potassium (Cozaar) 50 mg PO DAILY [facility] Last Admin: 11/12/18 11:15 Dose: 50 mg Metoprolol Succinate (Toprol Xl) 100 mg PO DAILY [facility] Last Admin: 11/12/18 09:55 Dose: 100 mg Mineral Oil (Mineral Oil 30ml) 30 ml PO DAILY [facility] Last Admin: 11/12/18 11:00 Dose: 30 ml Pantoprazole Sodium (Protonix Ec Tab) 40 mg PO DAILY [facility] Last Admin: 11/12/18 09:55 Dose: 40 mg Polyethylene Glycol (Miralax) 17 gm PO HS PRN PRN Reason: Constipation Last Admin: 11/10/18 04:40 Dose: 17 gm - Labs Labs: 11/11/18 13:51 11/11/18 13:51 PT 12.0 SECONDS (9.7-12.2) 11/09/18 12:09 INR 1.1 11/09/18 12:09 APTT 30 SECONDS (21-34) 11/09/18 12:09 - Constitutional Appears: Non-toxic, No Acute Distress - Head Exam Head Exam: ATRAUMATIC, NORMOCEPHALIC - Eye Exam Eye Exam: EOMI, PERRL. absent: Scleral icterus Pupil Exam: PERRL. absent: Miosis, Mydriatic - ENT Exam ENT Exam: Mucous Membranes Moist, Normal Oropharynx - Neck Exam Neck Exam: Full ROM, Normal Inspection - Respiratory Exam Respiratory Exam: Clear to Ausculation Bilateral. absent: Rales, Rhonchi, Wheezes - Cardiovascular Exam Cardiovascular Exam: RRR, +S1, +S2. absent: Gallop, Rubs - GI/Abdominal Exam GI & Abdominal Exam: Soft, Normal Bowel Sounds. absent: Distended, Firm, Guarding, Rigid, Tenderness, Organomegaly, Rebound - Extremities Exam Extremities Exam: Normal Inspection. absent: Pedal Edema - Neurological Exam Neurological Exam: Alert, Awake - Psychiatric Exam Psychiatric exam: Normal Affect, Normal Mood - Skin Skin Exam: Dry, Intact, Normal Color, Warm Assessment and Plan - Assessment and Plan (Free Text) Assessment: 78 year old female with PMH of Peptic ulcer disease (2012), Left lower extremity DVT 10/2017 (previously on Eliquis), nondisplaced sacrum/coccygeal junction fracture 2/2 syncopal episode (10/30/18 -Eliquis switched to Aspirin), HTN, Diabetes, HLD and chronic constipation presenting with lightheadedness and weakness. Active treatment of presyncopal episode. GI consultation for constipation in setting of noncompliance to outpatient bowel regimen. Patient denies straining with bowel movements- low suspicion for vasovagal episode with workup for presyncope. Prior colonoscopy within last 5-6 years endorsed to be normal. Plan: -daily bowel movements with monitored bowel regimen inpatient -counselled on compliance to scheduled Colace and mineral oil with Miralax as needed -continue increased water and fiber intake on discharge -follow up outpatient with Dr. Bass in two weeks Case discussed with Dr. Bass <Bowen Bass - Last Filed: 11/13/18 10:22> Objective - Vital Signs/Intake and Output Vital Signs (last 24 hours): Temp Pulse Resp BP Pulse Ox 98.2 F 66 20 138/72 100 11/13/18 08:56 11/13/18 09:00 11/13/18 08:56 11/13/18 08:56 11/13/18 08:56 - Medications Medications: Current Medications Amlodipine Besylate (Norvasc) 5 mg PO BID [facility] Last Admin: 11/13/18 09:45 Dose: 5 mg Aspirin (Ecotrin) 325 mg PO DAILY [facility] Last Admin: 11/13/18 09:45 Dose: 325 mg Clonazepam (Klonopin) 0.5 mg PO HS [facility] Last Admin: 11/12/18 22:03 Dose: 0.5 mg Docusate Sodium (Colace) 100 mg PO BID [facility] Last Admin: 11/13/18 09:45 Dose: 100 mg Insulin Aspart (Novolog) 0 unit SC [facility]; Protocol Last Admin: 11/13/18 08:29 Dose: 1 units Losartan Potassium (Cozaar) 50 mg PO DAILY [facility] Last Admin: 11/13/18 09:48 Dose: 50 mg Metoprolol Succinate (Toprol Xl) 100 mg PO DAILY [facility] Last Admin: 11/13/18 09:45 Dose: 100 mg Mineral Oil (Mineral Oil 30ml) 30 ml PO DAILY [facility] Last Admin: 11/13/18 09:45 Dose: 30 ml Pantoprazole Sodium (Protonix Ec Tab) 40 mg PO DAILY [facility] Last Admin: 11/13/18 09:45 Dose: 40 mg Polyethylene Glycol (Miralax) 17 gm PO HS PRN PRN Reason: Constipation Last Admin: 11/10/18 04:40 Dose: 17 gm - Labs Labs: 11/11/18 13:51 11/11/18 13:51 PT 12.0 SECONDS (9.7-12.2) 11/09/18 12:09 INR 1.1 11/09/18 12:09 APTT 30 SECONDS (21-34) 11/09/18 12:09 Attending/Attestation - Attestation I have personally seen and examined this patient.: Yes I have fully participated in the care of the patient.: Yes I have reviewed all pertinent clinical information, including history, physical exam and plan: Yes Notes (Text): 11/13/18 10:21 Patient appears to be doing well. Two additional stools. C/O some gas. Continue current regimen on discharge Out patient follow up with me as needed. Stable for discharge from GI point of view.
[2018-11-13] MEDS: (Novolog) Insulin Aspart, Recombinant 100 u/ml 10 ml vial SC SCH ×2 (08:29→12:34)
[2018-11-13 08:57] VITALS: BP 138/72; TEMP 98.2
[2018-11-13 09:12] VITALS: PULSE 66
[2018-11-13] MEDS: Aspirin 325 mg EC Tablets PO SCH (09:45)
[2018-11-13] MEDS: Pantoprazole 40 mg EC Tab PO SCH (09:45)
[2018-11-13] MEDS: Metoprolol Succinate 100 mg XL Tab PO SCH (09:45)
--- NOTE | 2018-11-13 11:46 | CP.PCM.DIS ---
Provider - Provider Date of Admission: 11/09/18 14:01 Attending physician: Arabella Vigil MD Consults: 11/09/18 17:37 Cardiology Consult Routine Comment: Consulting Provider: Mariposa Calloway Consulting Physician: Mariposa Calloway Reason for Consult: Near syncope 11/09/18 17:41 Psychiatry Consult Routine Comment: Consulting Provider: Rayo Wallace Consulting Physician: Rayo Wallace Reason for Consult: Amitted for near syncope, and not sleeping well lost her daughter 11/10/18 17:38 Psychiatry Consult Routine Comment: Consulting Provider: Bowen Bass Consulting Physician: Bowen Bass Reason for Consult: Constipation 11/11/18 10:59 Otolaryngology Consult Routine Consulting Provider: Leighton Silveira Consulting Physician: Leighton Silveira Reason for Consult: Wooziness, near syncopy Time Spent in preparation of Discharge (in minutes): 55 Diagnosis - Discharge Diagnosis (1) Type 2 diabetes mellitus with insulin therapy Status: Chronic (2) Near syncope Status: Acute (3) Constipation Status: Chronic (4) Hypertension Status: Chronic (5) CAD (coronary artery disease) Status: Chronic Hospital Course - Lab Results Lab Results: Most Recent Lab Values WBC 8.4 K/uL (4.8-10.8) 11/11/18 13:51 RBC 4.05 Mil/uL (3.80-5.20) 11/11/18 13:51 Hgb 12.6 g/dL (11.0-16.0) 11/11/18 13:51 Hct 37.3 % (34.0-47.0) 11/11/18 13:51 MCV 92.0 fL (81.0-99.0) 11/11/18 13:51 MCH 31.0 pg (27.0-31.0) 11/11/18 13:51 MCHC 33.7 g/dL (33.0-37.0) 11/11/18 13:51 RDW 12.7 % (11.5-14.5) 11/11/18 13:51 Plt Count 196 K/uL (130-400) 11/11/18 13:51 MPV 9.4 fL (7.2-11.7) 11/11/18 13:51 Neut % (Auto) 67.0 % (50.0-75.0) 11/11/18 13:51 Lymph % (Auto) 21.3 % (20.0-40.0) 11/11/18 13:51 [place] % (Auto) 8.5 % (0.0-10.0) 11/11/18 13:51 Eos % (Auto) 2.4 % (0.0-4.0) 11/11/18 13:51 Baso % (Auto) 0.8 % (0.0-2.0) 11/11/18 13:51 Neut # (Auto) 5.6 K/uL (1.8-7.0) 11/11/18 13:51 Lymph # (Auto) 1.8 K/uL (1.0-4.3) 11/11/18 13:51 [place] # (Auto) 0.7 K/uL (0.0-0.8) 11/11/18 13:51 Eos # (Auto) 0.2 K/uL (0.0-0.7) 11/11/18 13:51 Baso # (Auto) 0.1 K/uL (0.0-0.2) 11/11/18 13:51 PT 12.0 SECONDS (9.7-12.2) 11/09/18 12:09 INR 1.1 11/09/18 12:09 APTT 30 SECONDS (21-34) 11/09/18 12:09 Sodium 137 mmol/L (132-148) 11/11/18 13:51 Potassium 4.5 mmol/L (3.6-5.2) 11/11/18 13:51 Chloride 107 mmol/L (98-107) 11/11/18 13:51 Carbon Dioxide 25 mmol/L (22-30) 11/11/18 13:51 Anion Gap 10 (10-20) 11/11/18 13:51 BUN 16 mg/dL (7-17) 11/11/18 13:51 Creatinine 1.3 mg/dL (0.7-1.2) H 11/11/18 13:51 Est GFR ( Amer) 48 11/11/18 13:51 Est GFR (Non-Af Amer) 40 11/11/18 13:51 POC Glucose (mg/dL) 166 mg/dL (65-110) H 11/13/18 06:38 Random Glucose 164 mg/dL (65-105) H D 11/11/18 13:51 Calcium 9.4 mg/dl (8.6-10.4) 11/11/18 13:51 Total Bilirubin 0.5 mg/dL (0.2-1.3) 11/11/18 13:51 AST 35 U/L (14-36) 11/11/18 13:51 ALT 14 U/L (9-52) 11/11/18 13:51 Alkaline Phosphatase 52 U/L (38-126) 11/11/18 13:51 Total Creatine Kinase 114 U/L (30-135) 11/10/18 02:10 CK-MB (Mass) 0.75 ng/mL (0.0-3.38) 11/10/18 02:10 Troponin I < 0.0120 ng/mL (0.00-0.120) 11/10/18 02:10 Total Protein 7.2 g/dL (6.3-8.3) 11/11/18 13:51 Albumin 4.0 g/dL (3.5-5.0) 11/11/18 13:51 Globulin 3.2 gm/dL (2.2-3.9) 11/11/18 13:51 Albumin/Globulin Ratio 1.3 (1.0-2.1) 11/11/18 13:51 Free T4 1.18 ng/dL (0.78-2.19) 11/10/18 07:44 TSH 3rd Generation 1.56 mIU/L (0.46-4.68) 11/10/18 00:45 Urine Color Yellow (YELLOW) 11/09/18 13:12 Urine Clarity Clear (Clear) 11/09/18 13:12 Urine pH 6.0 (5.0-8.0) 11/09/18 13:12 Ur Specific [place] 1.009 (1.003-1.030) 11/09/18 13:12 Urine Protein Negative mg/dL (NEGATIVE) 11/09/18 13:12 Urine Glucose (UA) Normal mg/dL (Normal) 11/09/18 13:12 Urine Ketones Negative mg/dL (NEGATIVE) 11/09/18 13:12 Urine Blood Negative (NEGATIVE) 11/09/18 13:12 Urine Nitrate Negative (NEGATIVE) 11/09/18 13:12 Urine Bilirubin Negative (NEGATIVE) 11/09/18 13:12 Urine Urobilinogen Normal mg/dL (0.2-1.0) 11/09/18 13:12 Ur Leukocyte Esterase 1+ Karlie/uL (Negative) H 11/09/18 13:12 Urine WBC (Auto) 5 /hpf (0-5) 11/09/18 13:12 Urine RBC (Auto) 1 /hpf (0-3) 11/09/18 13:12 Stool Occult Blood Negative (NEGATIVE) 11/11/18 22:39 - Hospital Course Hospital Course: Readmitted his 78 years old female bacause of a feeling of severe wooziness almost to the point of almost fainting. The aptient called her son who brought her to the hospita. Patient was admitted to this hospital about 2-3 weeks ago. MRI, MRA, Carid doppler, EEG were done which were all negative. BP was stable, no evidence of orthostatic hypotension. Patint was seen by Dr. Murray who saw her as a outpatient and no medications was give. In this hospitalization patient was seen by the ENT, and retail greeter who are of the opinion that there was no inner ear pathology. Echo was done which was negative. MRI of the IAC was negative.FPFT was done and no results are in on discharge will follow up as a outpatient. Patient was seen by Dr. Box who thinks that this patient has a RBD and placed her on Klonopin 0.5 mgm every PM. Patient was able to sleep better, and felt better on discharge. She will be admitted for a sleep apnea test in this hospital as a outpatient. Discharge Exam - Head Exam Head Exam: ATRAUMATIC, NORMOCEPHALIC - Eye Exam Pupil Exam: NORMAL ACCOMODATION, PERRL - ENT Exam ENT Exam: Normal Exam, Normal External Ear Exam - Neck Exam Neck exam: Full Rom, Normal Inspection - Respiratory Exam Respiratory Exam: Clear to PA & Lateral, NORMAL BREATHING PATTERN, UNREMARKABLE - Cardiovascular Exam Cardiovascular Exam: REGULAR RHYTHM, +S1, +S2 - GI/Abdominal Exam GI & Abdominal Exam: Normal Bowel Sounds, Unremarkable - Rectal Exam Rectal Exam: Deferred - Back Exam Back exam: FULL ROM - Neurological Exam Neurological exam: Alert, Oriented x3, Reflexes Normal - Psychiatric Exam Psychiatric exam: Normal Affect, Normal Mood - Skin Skin Exam: Intact, Normal Color, Warm Discharge Plan - Follow Up Plan Condition: STABLE Disposition: HOME/ ROUTINE Patient education suggested?: Yes Additional Instructions: Patient to see Dr. Box as an outpatient, and to call the sleep apnea dept for admission for the test. Dr. Ridley aware of the patient. Clinical Quality Measures - CQM - VTE Did patient receive overlap therapy during hosptialization?: No
--- NOTE | 2018-11-13 13:37 | PN ---
DATE: 11/13/2018 SUBJECTIVE: The patient is seen. The patient is clinically much improved. She is sleeping much better. Tolerating Klonopin 0.5 dose at bedtime. The patient has possible discharge today. The patient is advised to have sleep study and also to continue her meds. If her anxiety continues to persist, the patient is advised to take psychiatric followup. REVIEW OF SYSTEMS: She is alert at this time. She is seen in her room sitting. The patient states that she wants to live alone, but she wants her son to monitor her. The patient is advised to get a Life Alert. PHYSICAL EXAMINATION: VITAL SIGNS: Temp 97.4, pulse 57, blood pressure 146/72, respiratory rate 20, 100% oxygen saturation. SKIN: No diaphoresis. HEENT: No headaches, no dizziness. NECK: Supple. RESPIRATORY: No dyspnea. CARDIOVASCULAR: No chest pain. GASTROINTESTINAL: No nausea, no vomiting. EXTREMITIES: The patient is ambulatory. MUSCULOSKELETAL: Gait is improving. NEURO: Alert and oriented x3. GENITOURINARY: No urinary problems. MENTAL STATUS EXAMINATION: Elderly female, looks stated age. Alert and oriented x3. Mood is much calmer. Affect is reactive. Speech is spontaneous. Thought process is coherent. Thought content, no overt psychosis. No suicidal or homicidal ideation. Attention and memory seems to be fair. Insight and judgment fair. Impulse control is fair. IMPRESSION: Anxiety disorder, not otherwise specified _and to consider rapid eye movement behavior problem. PLAN AND RECOMMENDATIONS: The patient is seen, meds reviewed. Continue present management. Continue Klonopin as ordered. The patient is psych gauthier stable for discharge. The patient will need sleep study as an outpatient. Follow up with Dr. Vigil. Rayo Yates MD MTDMalcolm
== END 2018-11-13 15:30 | disposition home or self-care (01) ==
LOC: C.ER 11:00 → C.9E 14:01 → C.6T 14:18
PROVIDERS: ADMIT Legal Medicine; ATTEND Legal Medicine
DX: R55 Syncope and collapse (principal); R07.89 Other chest pain; E78.00 Pure hypercholesterolemia, unspecified; E11.9 Type 2 diabetes mellitus without complications; F41.9 Anxiety disorder, unspecified; G47.00 Insomnia, unspecified; I10 Essential (primary) hypertension; I25.10 Atherosclerotic heart disease of native coronary artery without angina pectoris; G47.30 Sleep apnea, unspecified; I49.3 Ventricular premature depolarization; Z91.19 Patient's noncompliance with other medical treatment and regimen; Z86.73 Personal history of transient ischemic attack (TIA), and cerebral infarction without residual deficits; Z86.718 Personal history of other venous thrombosis and embolism; K59.09 Other constipation; G47.52 REM sleep behavior disorder
CPT/HCPCS: 36415; 70450; 70551; 71045; 74176; 80053; 81001; 82948; 84439; 84443; 84484; 85025; 85610; 85730; 93306; 99285; G0328; G0378

== ENCOUNTER 2018-11-26 18:35 | Outpatient (CLI) | payer MEDICARE | END 2018-11-26 18:36 | disposition home or self-care (01) | LOC: C.SLEEP 18:36 | DX: G47.52 REM sleep behavior disorder (principal) ==